=== PATIENT | male | born 1960 | race Caucasian/White ===

== ENCOUNTER 2017-12-07 17:37 | Inpatient (IN) | payer OTHER ==
[~2017-12-07] VITALS: Ht 180.3 cm; Wt 79.5 kg
[~2017-12-07 17:37] MED LIST: ALBUTEROL2.5 MG/3 M INH; ATIVAN0.5 M1 PO; AUGMENTIN 875875 MG PO; CHLORDIAZEPOXID25 M3 PO; FOLIC ACID 1 MG PO; FOLIC ACID1 M1 PO; IPRATROPIU0.2 MG/1 M INH; LIBRIUM25 MG PO; MAGNESIUM OXID400 M1 PO; ONE DAILY MULT1 EAC2 PO; VITAMIN B-1100 MG PO; VITAMIN B-121000 MC3 PO; VITAMIN B1100 MG PO; VITAMIN B121000 MCG PO
--- NOTE | 2017-12-07 18:09 | ED GENERAL ADULT ---
History of Present Illness General Chief Complaint: Altered Mental Status Stated Complaint: BECAME UNRESPONSIVE X 2 Source: patient, family, old records Exam Limitations: no limitations Vital Signs & Intake/Output Vital Signs & Intake/Output Vital Signs Date Time Temp Pulse Resp B/P B/P Pulse O2 O2 Flow FiO2 Mean Ox Delivery Rate 12/078 100 Nasal 2.0L Cannula 12/07 2300 98.7 116 16 112/80 12/07 2300 98.7 116 16 112/80 100 Nasal 2.0L Cannula 12/07 2228 98.9 116 18 120/70 97 Nasal 2.0L Cannula 12/07 2136 97 12/07 2120 135 18 115/66 98 Room Air 12/07 2014 98.5 123 18 102/59 96 Room Air 12/08 1999 97 Room Air 12/07 192 101.7 12/07 1742 101.7 146 20 123/74 98 Room Air Allergies Coded Allergies: NO KNOWN ALLERGIES (12/27/13) Reconcile Medications Albuterol Sulfate 2.5 MG/3 ML VIAL.NEB 1 PUFF INH BID PRN COPD Chlordiazepoxide HCl 25 MG CAPSULE 4 CAP PO DAILY ALCOHOL WITHDRAWAL ( Reported) Cyanocobalamin (Vitamin B-12) 1,000 MCG TABLET 1 TAB PO DAILY VITAMIN SUPPORT (Reported) Folic Acid 1 MG TABLET 1 TAB PO DAILY VITAMIN SUPPORT (Reported) Ipratropium [place] 0.2 MG/1 ML SOLUTION 1 PUFF INH BID PRN COPD Multivitamin (One Daily Multivitamin) 1 EACH TABLET 1 TAB PO DAILY supplement Thiamine HCl (Vitamin B-1) 100 MG TABLET 1 TAB PO DAILY VITAMIN SUPPORT ( Reported) Triage Note: RECEIVED 57 YO MALE BIBA FROM HOME WITH REPORT OF BRIEF PERIODS OF UNRESPONSIVENESS X 2 TODAY. ACCORDING TO PARAMEDICS, CALLED 911 AFTER PT HAD A BRIEF PERIOD OF BEING UNRESPONSIVE LASTING A FEW SECONDS. PT WARM TO TOUCH, TACYCARDIC, 101.7 TEMP ORALLY, 146 HR. PT WARM TO TOUCH, RHONCHI AUSCULTATED BILATERALLY. PT HAS MANY BRUISES ALL OVER BODY; PT REPORTS IT IS FROM FALLING A FEW DAYS AGO. ACCORDING TO TAR DISTRIBUTOR OPERATOR, PT HAD A UNRESPONSIVE EPISODE LASTING A FEW SECONDS ON WAY TO THE ED. Triage Nurses Notes Reviewed? yes Onset: Abrupt Duration: day(s): (1-2), changing over time, continues in ED, getting worse Timing: remote history Injury Environment: home Severity: moderate, severe No Modifying Factors: none HPI: 57-year-old male history of alcohol dependence, DTs, COPD presents for evaluation of altered mental status and periods of unresponsiveness. Family reports that patient has become gradually more weak and lethargic today. He was unable to walk. He is a heavy drinker he drinks beer daily. They're unsure exactly how much she drinks. 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 Patient has been so weak he is been unable to get off of his couch to get beer. He had several episodes of brief unresponsiveness today. There is no rhythmic movements of the extremities. Patient is also had multiple falls recently due to weakness. He developed a fever today. He has a cough but denies shortness of breath or cough is productive. He denies nausea vomiting or abdominal pain. He does have watery diarrhea with dark stool. No bright red blood no blood thinners. No recent antibiotics sick contacts or recent travel. (Jerald Stephens) Past History Travel History Traveled to [place] past 21 day No Medical History Any Pertinent Medical History? see below for history Neurological: delerium tremens, seizure EENT: NONE Cardiovascular: NONE Respiratory: COPD Gastrointestinal: alcoholic hepatitis Hepatic: alcoholic hepatitis, r/o cirrhosis Renal: NONE Musculoskeletal: degen joint disease, falls, C-SPINE FRACTUTRE Psychiatric: alcohol dependence, anxiety Endocrine: NONE Blood Disorders: coagulopathy, thrombocytopenia Cancer(s): NONE ON AIR TALENT/Reproductive: NONE History of MRSA: No History of VRE: No History of CDIFF: No Surgical History Surgical History: non-contributory Psychosocial History Who do you live with Spouse Services at Home None What is your primary language Singaporean Tobacco Use: Current Daily Use Daily Tobacco Use Amount/Type: => 5 Cigarettes daily ETOH Use: heavy use Family History Family History, If Any: FATHER Ischemic heart disease (IHD) Hx Contributory? No (Jerald Stephens) Review of Systems Review of Systems Constitutional: Reports: chills, diaphoresis, fever, malaise, weakness. EENTM: Reports: no symptoms. Respiratory: Reports: see HPI, cough, sputum production. Cardiovascular: Reports: no symptoms. GI: Reports: diarrhea. Genitourinary: Reports: no symptoms. Musculoskeletal: Reports: no symptoms. Skin: Reports: no symptoms. Neurological/Psychological: Reports: no symptoms. Hematologic/Endocrine: Reports: no symptoms. Immunologic/Allergic: Reports: no symptoms. All Other Systems: Reviewed and Negative (Jerald Stephens) Physical Exam Physical Exam General Appearance: no apparent distress, alert, awake, lethargic, thin Head: atraumatic, normal appearance Eyes: Bilateral: normal appearance, PERRL, EOMI. Ears, Nose, Throat: normal pharynx, normal ENT inspection, hearing grossly normal Neck: normal inspection, supple, full range of motion Respiratory: chest non-tender, no respiratory distress, rhonchi, wheezing Cardiovascular: normal peripheral pulses, tachycardia Peripheral Pulses: 2+ radial (R), 2+ radial (L) Gastrointestinal: normal bowel sounds, soft, non-tender, no organomegaly Rectal: normal exam, normal rectal tone, heme positive stool, dark brown stool heme-positive no gross blood Back: normal inspection, normal range of motion, no vertebral tenderness Extremities: normal inspection, normal range of motion, no edema Neurologic/Psych: no motor/sensory deficits, awake, alert, oriented x 3 Skin: intact, normal color, warm/dry, MULTIPLE superficial abrasions and bruising to the trunk and bilateral upper and lower extremities Lymphatic: no anterior cervical christy Core Measures ACS in differential dx? No CVA/TIA Diagnosis: No Sepsis Present: No Sepsis Focused Exam Completed? Yes (Jerald Stephens) Progress Differential Diagnoses I considered the following diagnoses in my evaluation of the patient: [Sepsis, alcohol intoxication, alcohol withdrawal, seizure disorder, pneumonia, aspiration pneumonia, acute coronary syndrome, UTI, electrolyte abnormality, hepatic encephalopathy, trauma] Plan of Care: Orders Procedure Date/time Status Regular Diet 12/08 B Active ECHOCARDIOGRAM 12/08 0900 Active ICU LAB BUNDLE 12/08 0500 Active HEPATIC FUNCTION PANEL 12/08 0500 Active CBC WITHOUT DIFFERENTIAL 12/08 0500 Active LACTIC ACID 12/08 0200 Active VRE ACTIVE SURVIELLANCE 12/07 233 Active ACTIVE SURVEILLANCE NARES 12/07 233 Active LACTIC ACID 12/07 233 Active Wound Care/Dressing 12/07 2314 Complete Weight 12/07 2314 Active VTE Mechanical Prophylaxis 12/07 2314 Active Vital Signs 12/07 2314 Active Turn and Reposition 12/07 2314 Active Drains/Tubes 12/07 2314 Complete Teach/Educate 12/07 2314 Active Skin Integrity Protocol 12/07 2314 Active Skin/Pressure Ulcer Assess (Sk 12/07 2314 Active Precautions 12/07 2314 Active Pain Treatment and Response 12/07 2314 Active Nutritional Intake, Monitor 12/07 2314 Active Isolation 12/07 2314 Active CIWA 12/07 2314 Active Patient Care Conference 12/07 2314 Active Activity/Ambulation 12/07 2314 Active LOWER RESPIRATORY CULTURE 12/07 2237 Active Pathway - chart 12/07 2128 Active House Staff 12/07 2128 Active Code Status 12/07 2128 Active LACTIC ACID 12/07 2048 Complete Add-on Test (ER Only) 12/08 2039 Active CULTURE,URINE 12/08 2019 Active STREP PNEUMO URINARY ANTIGEN 12/08 2019 Active LEGIONELLA URINARY ANTIGEN 12/08 2019 Active Patient Data 12/07 1956 Active Admit to inpatient 12/07 195 Active Add-on Test (ER Only) 12/07 194 Active Intake & Output 12/07 1846 Active Add-on Test (ER Only) 12/07 1826 Active Add-on Test (ER Only) 12/07 180 Active Add-on Test (ER Only) 12/07 180 Active CIWA 12/07 1754 Active TSH REFLEX 12/07 1750 Active PARTIAL THROMBOPLASTIN TIME 12/07 1750 Complete PROTHROMBIN TIME 12/07 1750 Complete PRE-ALBUMIN 12/07 1750 Active SERUM OSMOLALITY 12/07 1750 Active MAGNESIUM 12/07 1750 Active LIPASE 12/07 1750 Active CREATINE PHOSPHOKINASE 12/07 1750 Active VITAMIN B12 12/07 1750 Active ACETONE 12/07 1750 Active BLOOD CULTURE 12/07 1749 Active URINE DRUG SCREEN FOR ER ONLY 12/07 1749 Complete URINALYSIS 12/07 1749 Complete TROPONIN LEVEL 12/07 1749 Active LACTIC ACID 12/07 1749 Active ETHANOL 12/07 1749 Active COMPREHENSIVE METABOLIC PANEL 12/07 1749 Active CBC WITHOUT DIFFERENTIAL 12/07 174 Complete EKG 12/07 1742 Active Lab Add-on Test 12/07 UNK Active VTE Mechanical Prophylaxis 12/07 UNK Active Hemoccult 12/07 UNK Active SOCIAL WORK CONSULT 12/07 UNK Active NUTRITIONAL CONSULT 12/07 UNK Active Current Medications Sig/Christal Start time Last Medication Dose Stop Time Status Admin Folic Acid 1 MG DAILY 12/08 899 AC (Folic Acid) Multivitamins 1 TAB DAILY 12/08 899 AC (Theragran Vitamins) Pantoprazole Sodium 40 MG DAILY 12/08 899 AC (Protonix) Thiamine HCl 100 MG DAILY 12/08 899 AC (Vitamin B1) Metronidazole 500 MG IQ8 12/08 0000 AC (Flagyl) N/A 1 UNIT (No Carrier) Lorazepam 2 MG Q6 12/079 AC (Ativan) Lorazepam 0 Q1P PRN 12/07 2315 UNVr (Ativan) Ceftriaxone Sodium 1,000 MG 2200 12/07 2199 AC 12/07 (Rocephin) 2235 Laboratory Tests 12/07/172031: Lactic Acid 7.6 H 12/07/17 2020: Urine Opiates Screen < 100, Methadone Screen < 40, Barbiturate Screen < 60, Ur Phencyclidine Scrn < 6.00, Amphetamines Screen < 100, U Benzodiazepines Scrn < 85, Urine Cocaine Screen < 50, Urine Cannabis Screen < 5.00, Urine Color YEL, Urine Clarity HAZY H, Urine pH 6.5, Ur Specific [place] 1.010, Urine Protein 30 H, Urine Ketones NEG, Urine Nitrite POS H, Urine Bilirubin NEG, Urine Urobilinogen 0.2, Ur Leukocyte Esterase TRACE H, Ur Microscopic SEDIMENT EXAMINED, Urine RBC FEW H, Urine WBC 1-3 H, Ur Epithelial Cells RARE, Urine Bacteria MOD H, Urine Mucus RARE, Urine Hemoglobin SMALL H, Urine Glucose NEG 12/07/17 1750: Anion Gap 21 H, Estimated GFR > 60, BUN/Creatinine Ratio 2.5 L, Glucose 80, Serum Osmolality 302 H, Lactic Acid 11.3 H, Calcium 7.1 L, Magnesium 1.2 L, Total Bilirubin 1.2, AST 141 H, ALT 37, Alkaline Phosphatase 134 H, Creatine Kinase 309 H, Troponin I 0.02, Total Protein 6.4, Albumin 2.3 L, Globulin 4.1, Albumin/Globulin Ratio 0.6 L, Prealbumin 4.9 L, Lipase 254, Vitamin B12 > 1000 H, TSH &T3 &Free T4 Intrp Pending, PT 15.2 H, INR 1.39 H, APTT 33, CBC w Diff NO MAN DIFF REQ, RBC 2.56 L, MCV 102.5 H, MCH 35.4 H, MCHC 34.5, RDW 14.2, MPV 9.2, Gran % 90.3 H, Lymphocytes % 6.2 L, Monocytes % 3.4, Eosinophils % 0, Basophils % 0.1, Absolute Granulocytes 3.7, Absolute Lymphocytes 0.3 L, Absolute Monocytes 0.1, Absolute Eosinophils 0, Absolute Basophils 0, Serum Alcohol 101.0, Acetone Level NEGATIVE Microbiology 12/07 2309 UPPER RESP: Surveillance Culture - RECD 12/07 2309 GI: Surveillance Culture - RECD 12/07 2237 LOWER RESP: Respiratory Culture - ORD 12/07 2237 LOWER RESP: Gram Stain - ORD 12/08 2019 URINE ROUT: Legionella Antigen - RES 12/08 2019 URINE ROUT: Streptococcus pneumoniae Antigen (M - RES 12/08 2019 URINE ROUT: Urine Culture - RES 12/07 182 BLOOD: Blood Culture - RECD 12/07 1749 BLOOD: Blood Culture - RECD Patient arrives for evaluation of altered mental status and lethargy. He is tachycardia to the 140s and has a temp of 101. Fluids IV Tylenol ordered. Blood cultures urinalysis chest x-ray EKG ordered. Patient reports a history of multiple falls. He is a poor historian. CT scans of the head cervical spine chest 7 and pelvis ordered to rule out trauma. Patient has a history of alcohol withdrawal seizures. He reports he did not drink anything today. He had periods of unresponsiveness he'll be medicated with 2 mg of IV Ativan for prophylaxis of withdrawal seizures. Blood work shows a lactic acid of 11 magnesium of 1.2 and potassium of 3.3. Electrolytes will be replaced. CT scan shows a colitis and gallbladder wall thickening ultrasound of the gallbladder ordered. Rectal exam is positive for occult blood and no gross blood no melena. GI called. Patient will require admission to the hospital for lactic acidosis. Dr. Tejada will talk to the hospitalist to admit to the ICU. Additional fluids were ordered. Ultrasound showed evidence of acalculous cholecystitis. Admitting team is aware they'll consult surgery Diagnostic Imaging: Viewed by Me: Radiology Read, Ultrasound. Discussed w/RAD: Radiology Read, Ultrasound. Radiology Impression: PATIENT: PORTIA GONZALEZ PRESENT AGE: 57 PATIENT ACCOUNT NO: [id number] : 58 LOCATION: [facility] ORDERING PHYSICIAN: Jerald TALAVERA SERVICE DATE: 12/07/17 EXAM TYPE: CAT - CT CERV SPINE WO IV CONTRAST; CT HEAD WO IV CONTRAST EXAMINATION: CT OF THE HEAD AND CERVICAL SPINE WITHOUT CONTRAST CLINICAL INFORMATION: AMS UNRESPONSIVE. COMPARISON: 01/16/2016. TECHNIQUE: Contiguous axial imaging was performed from the skull base to vertex. Soft tissue and bony algorithms were evaluated. Coronal reformatted images were obtained on the technologist's workstation. Following this, multiple serial thin slice helical CT scan images through the cervical spine were obtained. Soft tissue and bony algorithms were evaluated. Coronal and sagittal reformatted images were obtained on the technologist workstation. DLP: 932 mGy cm FINDINGS: Head CT: The ventricles are normal in size and symmetry. There is no evidence of acute intracranial hemorrhage or territorial infarction. No abnormal mass-effect or midline shift is seen. Brady to white matter differentiation is well preserved. No extra-axial fluid collections are identified. There is no abnormal attenuation within the brain parenchyma. The osseous structures and soft tissues are normal. The mastoid air cells and visualized portions of the paranasal sinuses are well-aerated. Cervical spine CT: No prevertebral soft tissue swelling is appreciated. The bones are in normal anatomic alignment with no acute fracture or spondylolisthesis. Multilevel degenerative changes are seen with osteophyte formation more so from C3 to C7. Loss of disc height more so at C5/C6 and C6/C7. Degenerative changes is slightly progressed from the 2016 study. Vertebral body heights and disc heights are otherwise preserved. Posterior elements also demonstrate multiple sclerotic degenerative changes. Visualized airway and lung apices are unremarkable. Visualized thyroid gland unremarkable. IMPRESSION: Head CT: No acute intracranial pathology. C-spine: No acute bony abnormality in the cervical spine. Multilevel degenerative changes seen. DICTATED BY: Pepe Chang MD DATE/TIME DICTATED:12/07/171901 POINTER MACHINE OPERATOR:MONIKA DATE/ TIME TRANSCRIBED:12/07/171901 CONFIDENTIAL, DO NOT COPY WITHOUT APPROPRIATE AUTHORIZATION. <Electronically signed in Other Vendor System> SIGNED BY: Pepe Chang MD 12/07/171908, PATIENT: PORTIA GONZALEZ PRESENT AGE: 57 PATIENT ACCOUNT NO: [id number] : 58 LOCATION: [facility] ORDERING PHYSICIAN: Jerald TALAVERA SERVICE DATE: 12/07/17 EXAM TYPE: US - US-LIMITED ABDOMEN EXAMINATION: US ABDOMEN LIMITED CLINICAL INFORMATION: Cholecystitis. AMS. Right upper quadrant pain.. COMPARISON: Ultrasound complete abdomen 01/16/2016. TECHNIQUE: Real-time imaging of the right upper quadrant abdominal viscera. Patient is unconscious and unable to follow breathing instructions. FINDINGS: PANCREAS: The pancreas is completely obscured by overlying gas. LIVER: The liver demonstrates enlarged size, contour and increased echogenicity. No focal lesion or intrahepatic biliary duct dilatation. GALLBLADDER: The gallbladder contains echogenic bile with 0.8 cm wall thickness. There is echogenic fluid within the gallbladder wall and anechoic fluid around the gallbladder wall consistent with cholecystitis. There is no echogenic stone visualized. COMMON BILE DUCT: Normal in caliber measuring 0.5 cm in diameter. RIGHT KIDNEY: Normal. No hydronephrosis. No renal calculi or focal parenchymal lesions. The kidney measures 11.6 cm in maximum dimension. FREE FLUID: None. IMPRESSION: Findings most suggestive of acalculous cholecystitis. Thickened gallbladder wall and anechoic pericholecystic fluid collection. The CBD is normal size measuring 0.5 cm. The liver is enlarged with increased echogenicity likely hepatic steatosis. DICTATED BY: Alma DONIS,James DATE/TIME DICTATED:2042 POINTER MACHINE OPERATOR:[email or web address].[email or web address] DATE/TIME TRANSCRIBED:12/07/172042 CONFIDENTIAL, DO NOT COPY WITHOUT APPROPRIATE AUTHORIZATION. <Electronically signed in Other Vendor System> CXR Impression: PATIENT: PORTIA GONZALEZ PRESENT AGE: 57 PATIENT ACCOUNT NO: [id number] : 58 LOCATION: [facility] ORDERING PHYSICIAN: Jerald TALAVERA SERVICE DATE: 12/07/17 EXAM TYPE: RAD - XRY- PORTABLE CHEST XRAY EXAMINATION: XR PORTABLE CHEST CLINICAL INFORMATION: AMS, fever. COMPARISON: Chest portable 01/16/2016. TECHNIQUE: Portable frontal view of the chest was obtained. FINDINGS: Lungs are well-inflated and clear of acute process. The heart size and pulmonary vascularity is normal. No gross bony abnormality seen. IMPRESSION: Unremarkable chest exam. DICTATED BY: Alma DONIS, Jaems DATE/TIME DICTATED:12/07/171856 POINTER MACHINE OPERATOR:RAD.MONTENEGRO DATE/TIME TRANSCRIBED:12/07/171856 CONFIDENTIAL, DO NOT COPY WITHOUT APPROPRIATE AUTHORIZATION. Initial ED EKG: SINUS TACH RATE 143, LOW VOLATE FRONTAL LEADS, DIFFUSE ABNORMAL T WAVES Rhythm Strip: sinus tachycardia (Jerald Stephens) ED Sepsis Exam Date of Focused Sepsis Exam: 12/07/17 Time of Focused Sepsis Exam: 2147 Sepsis Cardiac Exam: Tachycardia Sepsis Resp Exam: Ronchi Sepsis Cap Refill Exam: <2 Sec Sepsis Peripheral Pulse Exam: Normal Sepsis Peripheral Pulse Location: Radial Sepsis Skin Color Exam: Normal for Ethnicity Skin Temp/Moisture Exam: Hot/Dry (Jerald Stephens) Departure Departure Disposition: STILL A PATIENT Condition: Stable Clinical Impression Primary Impression: Acidosis Secondary Impressions: Acalculous cholecystitis, Colitis Departure Forms: Customer Survey General Discharge Information Admission Note Spoke With: Payton Garcia MD Documentation of Exam: Documentation of any treatments & extenuating circumstances including Concerns Regarding Discharge (functional status, medication knowledge or non-compliance, living conditions, etc.) that warrant an admission rather than observation: [ SERIAL LABS, FLUIDS, REPLENISH ELECTROLYES, critical care, follow-up cultures, GI consult, CIWA, IV Ativan medication adjustment physical therapy] (Jerald Stephens) PA/STOCK DRIVER Co-Sign Statement Statement: ED Attending supervision documentation- [X] I saw and evaluated the patient. I have also reviewed all the pertinent lab results and diagnostic results. I agree with the findings and the plan of care as documented in the PA's/STOCK DRIVER's documentation. [X] I have reviewed the ED Record and agree with the PA's/STOCK DRIVER's documentation. [] Additions or exceptions (if any) to the PAs/STOCK DRIVER's note and plan are summarized below: [Patient is febrile, tachycardic and has lactic acidosis, patient is an alcoholic but has not had access to alcohol however will need evaluation for possible toxic alcohols. A level has been sent KORI, we'll need to follow-up on an osmolar gap was acetone level. If his toxic alcohol level was positive he may need for FOMEPAZOL and possibly even hemodialysis.] (Mallory DONIS,Fred Sevilla) Critical Care Note Critical Care Note Critical Care Time: 75-104 min (Jerald Stephens)
[2017-12-07 18:22] LABS: ABSOLUTE BASOPHIL COUNT 0 /CUMM (0.0-0.2); ABSOLUTE EOSINOPHIL COUNT 0 /CUMM (0.0-0.7); ABSOLUTE GRANULOCYTE CT 3.7 /CUMM (1.4-6.5); ABSOLUTE LYMPH COUNT 0.3 /CUMM (1.2-3.4); ABSOLUTE MONOCYTE COUNT 0.1 /CUMM (0.10-0.60); BASOPHIL % 0.1 % (0.0-2.0); EOSINOPHIL % 0 % (0-5); HEMATOCRIT 26.2 % (42-52); MEAN CORPUSCULAR HGB 35.4 PG (27.0-31.0); MEAN CORPUSCULAR HGB CONC 34.5 G/DL (33.0-37.0); MEAN CORPUSCULAR VOLUME 102.5 FL (80.0-94.0); MEAN PLATELET VOLUME 9.2 FL (7.4-10.4); RBC DISTRIBUTION WIDTH 14.2 % (11.5-14.5); RED BLOOD CELL CT 2.56 /CUMM (4.70-6.10); WHITE BLOOD CELL COUNT 4.1 /CUMM (4.8-10.8)
[2017-12-07 18:33] LABS: GRANULOCYTE % 90.3 % (42.2-75.2); PLATELET COUNT 129 /CUMM (130-400)
--- NOTE | 2017-12-07 19:01 | RADIOLOGY REPORT ---
EXAMINATION: XR PORTABLE CHEST CLINICAL INFORMATION: AMS, fever. COMPARISON: Chest portable 01/16/2016. TECHNIQUE: Portable frontal view of the chest was obtained. FINDINGS: Lungs are well-inflated and clear of acute process. The heart size and pulmonary vascularity is normal. No gross bony abnormality seen. IMPRESSION: Unremarkable chest exam.
--- NOTE | 2017-12-07 19:09 | CT SCAN REPORT ---
EXAMINATION: CT OF THE HEAD AND CERVICAL SPINE WITHOUT CONTRAST CLINICAL INFORMATION: AMS UNRESPONSIVE. COMPARISON: 01/16/2016. TECHNIQUE: Contiguous axial imaging was performed from the skull base to vertex. Soft tissue and bony algorithms were evaluated. Coronal reformatted images were obtained on the technologist's workstation. Following this, multiple serial thin slice helical CT scan images through the cervical spine were obtained. Soft tissue and bony algorithms were evaluated. Coronal and sagittal reformatted images were obtained on the technologist workstation. DLP: 932 mGy cm FINDINGS: Head CT: The ventricles are normal in size and symmetry. There is no evidence of acute intracranial hemorrhage or territorial infarction. No abnormal mass-effect or midline shift is seen. Brady to white matter differentiation is well preserved. No extra-axial fluid collections are identified. There is no abnormal attenuation within the brain parenchyma. The osseous structures and soft tissues are normal. The mastoid air cells and visualized portions of the paranasal sinuses are well-aerated. Cervical spine CT: No prevertebral soft tissue swelling is appreciated. The bones are in normal anatomic alignment with no acute fracture or spondylolisthesis. Multilevel degenerative changes are seen with osteophyte formation more so from C3 to C7. Loss of disc height more so at C5/C6 and C6/C7. Degenerative changes is slightly progressed from the 2016 study. Vertebral body heights and disc heights are otherwise preserved. Posterior elements also demonstrate multiple sclerotic degenerative changes. Visualized airway and lung apices are unremarkable. Visualized thyroid gland unremarkable. IMPRESSION: Head CT: No acute intracranial pathology. C-spine: No acute bony abnormality in the cervical spine. Multilevel degenerative changes seen.
--- NOTE | 2017-12-07 19:24 | CT SCAN REPORT ---
EXAMINATION: CT CHEST WITHOUT CONTRAST CT ABDOMEN AND PELVIS WITHOUT CONTRAST CLINICAL INFORMATION: Presumptive Dx: PNA TRAUMA Symptoms: MULTIPLE FALLS COUGH AMS . COMPARISON: CT chest dated 03/07/2015.. TECHNIQUE: Multidetector volumetric imaging was performed from the thoracic inlet through the pubic symphysis . Sagittal and coronal images were reformatted. DOSE: 445 mGy-cm FINDINGS: -CHEST- LUNG: The lungs are clear without focal opacity or nodule. MEDIASTINUM: The mediastinum in normal. The central vascular structures are unremarkable. No hilar or mediastinal lymphadenopathy. PERICARDIUM/PLEURA: No significant effusion. No pleural mass or thickening. CHEST WALL/AXILLA: There are old healed fractures of the right seventh and eighth ribs laterally. No acute fractures. No axillary adenopathy. -ABDOMEN/PELVIS- LIVER, GALLBLADDER, BILIARY TREE: Diffuse hypoattenuation of the hepatic parenchyma is consistent with steatosis. There is focal fatty sparing around the gallbladder fossa. No focal hepatic lesions are identified. Liver is normal in size and contour. No ductal dilatation. Gallbladder is distended with mild wall thickening. No pericholecystic inflammatory changes are identified. No radiodense gallstones. PANCREAS: Unremarkable. SPLEEN: Unremarkable. ADRENAL GLANDS: Unremarkable. KIDNEYS AND URETERS: The kidneys are normal in size, shape, and attenuation. No hydronephrosis, hydroureter, or calculi seen. No perinephric stranding. BLADDER: Decompressed with diffuse wall thickening. GASTROINTESTINAL TRACT: Stomach, small bowel, and colon are normal in caliber. There is a mobilized cecum. Appendix is normal. There is mild wall thickening and stranding pericolonic edema at the ascending colon. Colon is otherwise normal in wall thickness without surrounding inflammatory changes. No intraperitoneal free air or free fluid. ABDOMINAL WALL: No significant hernia is appreciated. Status post right inguinal herniorrhaphy. VASCULATURE: Calcific atherosclerosis in the abdominal aorta and iliac arteries. No aneurysmal dilatation. LYMPH NODES: No lymphadenopathy. . PELVIC VISCERA: The prostate and seminal vesicles are unremarkable. OSSEUS STRUCTURES: Right convex lumbar scoliosis. Chronic superior endplate compression deformity is present in the midthoracic spine at T6. This is unchanged from prior. Small superior endplate compression deformities at the L3 and L4 vertebral bodies and at the L5 vertebral body are favored to be chronic. Acute fractures in the regions of relatively less likely. No other compression fractures are identified. There is mild to moderate multilevel degenerative disc disease throughout the lumbar spine and, to a lesser extent, in the thoracic spine. Arthropathy is present in the lower lumbar spine and combines with disc bulge to produce at least mild central canal narrowing at L4. IMPRESSION: 1. No acute injuries are identified in the chest, abdomen, and pelvis. 2. Clear lungs. No pneumonia. 3. Mild wall thickening and surrounding pericolonic stranding at the ascending colon, concerning for mild colitis. Appendix is normal. No evidence of perforation. 4. Gallbladder wall thickening. This may be reactive to the adjacent inflammation at the colon or due to underlying hepatocellular disease. Acute cholecystitis is less likely. No cholelithiasis identified. 5. Hepatic steatosis. 6. Multilevel degenerative disc disease in the thoracolumbar spine. Superior endplate compression fractures at the L3, L4, and L5 vertebral bodies are favored to be chronic, though prior comparisons are not available and acute fractures at these levels cannot be completely excluded.
--- NOTE | 2017-12-07 20:18 | History & Physical ---
Jl Pinto MD 12/07/17 2017: General Information and HPI MD Statement: I have seen and personally examined PORTIA GONZALEZ and documented this H&P. The patient is a 57 year old M who presented with a patient stated chief complaint of [weakness, unresponsiveness]. Source of Information: family Exam Limitations: no limitations History of Present Illness: 57 yo M with PMH of COPD, heavy alcohol use with history of alcohol related withdrawal seizure, delirium tremens requiring ICU admission in 2013, cervical spine injury with degenerative changes was brought to the ED by family members for evaluation of fever and brief episodes of unresponsiveness. History has been obtained from the present at bedside as the patient was somnolent at the time of interview. The states that she returned home today around 3pm and found her on the couch, with shaking chills and feeling cold. She assisted to take him to the bathroom but he was unable to make it and soiled himself. The reports that he had dark stools. After she helped him back to the couch, he tried to get back up to use the bathroom but was unable to do so due to weakness. The patient has a heavy alcohol intake. The is unable to tell exactly but states around 20 beers a day along with 3 packs of cigarettes. While the patient told the EMS that he did not drink alcohol today, the feels she did hear a bottle opened at around 5.30am this morning. She feels the patient is either drinking a beer or smoking a cigarette. He lives a sedentary lifestyle since losing his job two years ago. The patient was normally independent at baseline but lately has required the use of a walker recently due to increasing weakness. He has had 5 falls this past week. He has a poor oral intake other than for alcohol. He has a history of degenerative changes in his cervical spine for which he takes naproxen. The is unsure how much he has been taking recently. The patient has had no hospital admissions for alcohol detox or any other illnesses since his last admission two years ago in [place]. The states that he was enrolled in an outpatient program for alcohol after his last admisison but he resumed drinking soon after he was discharged. Allergies/Medications Allergies: Coded Allergies: NO KNOWN ALLERGIES (12/27/13) Home Med list Naproxen 250 MG TABLET 1 TAB PO BID PRN Pain (Reported) Past History Travel History Traveled to [place] past 21 day No Medical History EENT: NONE Cardiovascular: NONE Respiratory: COPD Gastrointestinal: alcoholic hepatitis Renal: NONE Musculoskeletal: degen joint disease, falls, C-SPINE FRACTUTRE Psychiatric: alcohol dependence Endocrine: NONE Blood Disorders: thrombocytopenia Cancer(s): NONE RETINAL SURGEON/Reproductive: NONE History of MRSA: No History of VRE: No History of CDIFF: No Surgical History Surgical History: non-contributory Past Family/Social History Family History Relations & Conditions if any FATHER Ischemic heart disease (IHD) Psychosocial History Who Do You Live With? spouse Services at Home: None Primary Language: Lao ETOH Use: heavy use Living Will? no Power of Glass Frame Fitter/HCP? no Functional Ability ADLs Independent: dressing, eating, toileting, bathing. Ambulation: independent IADLs Independent: shopping, housework, finances, food prep, telephone, transportation , medication admin. Review of Systems Review of Systems Constitutional: Reports: chills, fever, weakness. EENTM: Reports: no symptoms. Cardiovascular: Denies: chest pain, palpitations. Respiratory: Reports: cough. GI: Reports: melena. Denies: abdominal pain. Genitourinary: Reports: no symptoms. Musculoskeletal: Reports: joint pain. Skin: Reports: no symptoms. Neurological/Psychological: Reports: headache. Hematologic/Endocrine: Reports: no symptoms. Exam & Diagnostic Data Last 24 Hrs of Vital Signs/I&O Vital Signs Date Time Temp Pulse Resp B/P B/P Pulse O2 O2 Flow FiO2 Mean Ox Delivery Rate 12/08 2135 97 12/070 135 18 115/66 98 Room Air 12/07 2014 98.5 123 18 102/59 96 Room Air 12/08 1999 97 Room Air 12/07 1925 101.7 12/07 1742 101.7 146 20 123/74 98 Room Air Physical Exam General Appearance Oriented X3, Cooperative, Mild Distress, awake Skin No Rashes, No Breakdown, dry skin with lesions on bilateral lower extremities Skin Temp/Moisture Exam: Warm/Dry Sepsis Skin Exam (color): Normal for Ethnicity HEENT Atraumatic Cardiovascular Normal S1, Normal S2, tachycardic Lungs diffuse course rhonchi bilaterally Abdomen Soft, No Tenderness, Tse's sign not elicited Neurological Normal Speech Extremities No Edema Last 24 Hrs of Labs/Marek: Laboratory Tests 12/07/172031: Lactic Acid 7.6 H 12/07/171749: Anion Gap 21 H, Estimated GFR > 60, BUN/Creatinine Ratio 2.5 L, Glucose 80, Serum Osmolality 302 H, Lactic Acid 11.3 H, Calcium 7.1 L, Magnesium 1.2 L, Total Bilirubin 1.2, AST 141 H, ALT 37, Alkaline Phosphatase 134 H, Creatine Kinase 309 H, Troponin I 0.02, Total Protein 6.4, Albumin 2.3 L, Globulin 4.1, Albumin/Globulin Ratio 0.6 L, Lipase 254, Vitamin B12 > 1000 H, PT Pending, INR Pending, APTT Pending, CBC w Diff NO MAN DIFF REQ, RBC 2.56 L, MCV 102.5 H , MCH 35.4 H, MCHC 34.5, RDW 14.2, MPV 9.2, Gran % 90.3 H, Lymphocytes % 6.2 L, Monocytes % 3.4, Eosinophils % 0, Basophils % 0.1, Absolute Granulocytes 3.7, Absolute Lymphocytes 0.3 L, Absolute Monocytes 0.1, Absolute Eosinophils 0, Absolute Basophils 0, Serum Alcohol 101.0, Acetone Level NEGATIVE Microbiology 12/08 1819 BLOOD: Blood Culture - RECD 12/07 1749 BLOOD: Blood Culture - RECD Assessment/Plan Assessment: 57 yo M with PMH of COPD, heavy alcohol use with history of alcohol related withdrawal seizure, delirium tremens requiring ICU admission in 2013, cervical spine injury with degenerative changes was brought to the ED by family members for evaluation of fever and brief episodes of unresponsiveness. Assessment: 1. Anion Gap Metabolic Acidosis likely due to Lactic Acidosis 2. Electrolyte Abnormalities - Hypokalemia, Hypomagnesemia, Hypocalcemia 3. Moderate to Severe Malnutrition 4. Alcohol Abuse 5. Dehydration 6. Acalculous Cholecystitis 7. SIRS - Fever of 101.7 and Sinus Tachycardia up to 140s 8. Heme +ve stools 9. Chronic Anemia and Thrombocytopenia 10. History of Alcoholic Hepatitis Plan: * Admit patient to ICU * Aggressive fluid hydration. * Trend Lactic Acid. Currently down to 7.6 from 11.3. He has had elevations in his lactic acid to 7 in the past looking back at his lifetime summary. * Follow blood cultures * Check urine cultures and urinary strep pnemo and legionella antigen. * Start IV Ceftriaxone and Flagyl. * His abdominal U/S shows acalculous cholecystitis though the inflammation may be reactive to the adjacent inflammation at the colon or due to underlying hepatocellular disease. * General surgery consult * Start Ativan 2mg q6 and IV Ativan per CIWA. * Multivitamins, folic acid and thiamine. * His blood alcohol level is 101 so he may not show signs of immediate withdrawal. * Social work consult * Echocardiogram. Last echo in 2015 showed EF of 40-45% with mild global hypokinesia. He could have worsening of his cardiomyopathy. * His prealbumin is low. He has moderate to severe protein malnutrition. Will obtain nutrition consult. * Trend LFTs. * Consider GI consult. He did have heme +ve stools in the ER * Diet: Regular * DVT Prophylaxis: ALPS only * Code: Full Code As Ranked By This Provider Problem List: 1. Acalculous cholecystitis Core Measures/Misc (02/15) Acute Coronary Syndrome ACS Diagnosis: No Congestive Heart Failure Congestive Heart Failure Diagnosis No Cerebrovascular Accident CVA/TIA Diagnosis: No VTE (View Protocol) VTE Risk Factors Age>40 No Mechanical VTE Prophylaxis d/t N/A MechProphylax Ordered No VTE Pharm Prophylaxis d/t Medical Contraindication Sepsis (View protocol) Sepsis Present: No If YES complete Sepsis Event Note If YES complete Sepsis Event Note Payton Garcia MD 12/07/17 7176: Core Measures/Misc (02/15) Sepsis (View protocol) If YES complete Sepsis Event Note If YES complete Sepsis Event Note Attending MD Review Statement Attending Statement Attending MD Statement: examined this patient, discuss w/resident/PA/OIL GAUGER, agreed w/resident/PA/OIL GAUGER, reviewed EMR data (avail) Attending Assessment/Plan: 57M PMH alcohol dependance, alcohol withdrawl seizure/delirium tremens brought in by family for lethargy, weakness, decreased PO intake. Patient drinks several beers per day, family unsure of how many. Patient is lethargic and thus poor historian. He has no complaints when roused. Family is concerned as he is not eating well, only drinks, and has stopped getting out of bed/couch. Found to have lactate 11, febrile 101, pancytopenia, transaminitis, hypocalcemia, hypomagnesemia, and hypokalemia. EKG NSR no acute changes. Imaging shows acalculous cholecystitis. 1. Lactic acidosis 2. Severe dehydration 3. Hypomagnesemia 4. Hypokalemia 5. Hypocalcemia 6. Malnutrition 7. Transaminitis 8. Alcohol withdrawal with delirium 9. Lethargy 10. Acalculous cholecystitis Plan - Admit to ICU - Aggressive IV hydration - Ceftriaxone and Flagyl - Surgery consult - Aggressively replete electrolytes - Trend LFTs, lactate, troponin, electrolytes, renal function, CBC - Ativan PO 2mg q6h - Ativan IV PRN CIWA - DVT PPx - Aggressive IV hydration - Ceftriaxone and Flagyl - Surgery consult - Aggressively replete electrolytes - Trend LFTs, lactate, troponin, electrolytes, renal function, CBC - Ativan PO 2mg q6h - Ativan IV PRN CIWA - DVT PPx
--- NOTE | 2017-12-07 20:53 | ULTRASOUND REPORT ---
EXAMINATION: US ABDOMEN LIMITED CLINICAL INFORMATION: Cholecystitis. AMS. Right upper quadrant pain.. COMPARISON: Ultrasound complete abdomen 01/16/2016. TECHNIQUE: Real-time imaging of the right upper quadrant abdominal viscera. Patient is unconscious and unable to follow breathing instructions. FINDINGS: PANCREAS: The pancreas is completely obscured by overlying gas. LIVER: The liver demonstrates enlarged size, contour and increased echogenicity. No focal lesion or intrahepatic biliary duct dilatation. GALLBLADDER: The gallbladder contains echogenic bile with 0.8 cm wall thickness. There is echogenic fluid within the gallbladder wall and anechoic fluid around the gallbladder wall consistent with cholecystitis. There is no echogenic stone visualized. COMMON BILE DUCT: Normal in caliber measuring 0.5 cm in diameter. RIGHT KIDNEY: Normal. No hydronephrosis. No renal calculi or focal parenchymal lesions. The kidney measures 11.6 cm in maximum dimension. FREE FLUID: None. IMPRESSION: Findings most suggestive of acalculous cholecystitis. Thickened gallbladder wall and anechoic pericholecystic fluid collection. The CBD is normal size measuring 0.5 cm. The liver is enlarged with increased echogenicity likely hepatic steatosis.
[2017-12-07 21:12] LABS: PT 15.2 SEC (9.4-12.5); PTT 33 SEC (25-37)
[2017-12-07 23:00] VITALS: BP 112/80
--- NOTE | 2017-12-07 23:00 | Admission Certification ---
Admission Certification Certification Statement - As attending physician, I certify that at the time of - admission, based on clinical presentation, severity of - symptoms, need for further diagnostic testing and - therapeutic interventions, and risk of adverse outcomes - without in-hospital treatment, in my clinical assessment, - this patient requires an acute hospital stay for a minimum - of two nights or longer. I have also considered psychsocial - factors such as support system, advanced age, financial - issues, cognitive issues, and failed out-patient treatments, - past re-admission history, safety of patient, and lack of - compliance as applicable. Specific rationale supporting this admission is: Severe dehydration with lactate 11 and acalculous cholecystitis
[2017-12-07] MEDS ORDERED: NAPROXEN250 M1 PO (23:53)
[2017-12-08] VITALS (9 sets, daily range): BP systolic 104–133; BP diastolic 60–85
[2017-12-08 02:48] LABS: ABSOLUTE BASOPHIL COUNT 0 /CUMM (0.0-0.2); ABSOLUTE EOSINOPHIL COUNT 0 /CUMM (0.0-0.7); ABSOLUTE GRANULOCYTE CT 19.2 /CUMM (1.4-6.5); ABSOLUTE LYMPH COUNT 0.6 /CUMM (1.2-3.4); ABSOLUTE MONOCYTE COUNT 1.3 /CUMM (0.10-0.60); BASOPHIL % 0 % (0.0-2.0); EOSINOPHIL % 0 % (0-5); GRANULOCYTE % 91.2 % (42.2-75.2); HEMATOCRIT 26.9 % (42-52); MEAN CORPUSCULAR HGB CONC 33.7 G/DL (33.0-37.0); MEAN CORPUSCULAR VOLUME 103.9 FL (80.0-94.0); MEAN PLATELET VOLUME 8.9 FL (7.4-10.4); PLATELET COUNT 114 /CUMM (130-400); RBC DISTRIBUTION WIDTH 14.2 % (11.5-14.5); RED BLOOD CELL CT 2.59 /CUMM (4.70-6.10)
[2017-12-08 03:08] LABS: WHITE BLOOD CELL COUNT 21.1 /CUMM (4.8-10.8)
--- NOTE | 2017-12-08 07:23 | Cons- CRCU ---
Pepe Taylor MD 12/08/17 0722: General Information and HPI Consulting Request Date of Consult: 12/08/17 Requested By: Payton Garcia MD Source of Information: patient, family, old records Exam Limitations: poor historian History of Present Illness: 57 year old male with past medical history of heavy smoking and alcohol use, history of alcohol withdrawal seizure, delirium tremens requiring ICU admission in 2013, and chronic back pain on naproxen, was BIBA for evaluation of fever, chills, diarrhea, and weakness with some reported unresponsiveness. The historywas primarily obtained from the because of the patient's clinical condition. The states that she returned home today around 3pm and found her on the couch, with shaking chills, diaphoretic and had urinated and defecated on himself when she called 911. She reports that he has had dark stools but none overtly blood. He has become progressively weaker and is now using a walker at home that she recently purchased for him. He drinks about 20 beers a day and 3 packs of cigarettes daily. He lives a sedentary lifestyle since losing his job two years ago. The patient was normally independent at baseline but lately has required the use of a walker recently due to increasing weakness. He has had 5 falls this past week with some associated bruising. He has poor oral intake, most of his caloric intake is from beer. He had previously participated in an intensive outpatient program after another hospitalization but has no interest in alcohol cessation at this time. Allergies/Medications Allergies: Coded Allergies: NO KNOWN ALLERGIES (12/27/13) Home Med List: Naproxen 250 MG TABLET 1 TAB PO BID PRN Pain (Reported) Current Medications: Current Medications Sig/Christal Start time Last Medication Dose Route Stop Time Status Admin Acetaminophen 0 .STK-MED ONE 12/07 1858 DC IV Acetaminophen 1,000 MG ONCE ONE 12/07 1800 DC 12/07 N/A 1 UNIT IV 12/07 181 1926 Calcium Carbonate 650 MG BID 12/08 1110 AC PO Ceftriaxone Sodium 0 .STK-MED ONE 12/07 223 DC .ROUTE Ceftriaxone Sodium 1,000 MG 2200 12/07 2200 AC 12/07 IV 2235 Folic Acid 1 MG DAILY 12/08 0900 AC 12/08 PO 0830 Ipratropium [place] 2.5 ML ONCE ONE 12/07 1815 DC 12/07 INH 12/07 1816 2136 Lorazepam 2 MG Q6 12/07 2359 AC 12/08 PO 0551 Lorazepam 0 Q1P PRN 12/07 2345 AC IV Lorazepam 0 Q1P PRN 12/07 2315 DC IV Lorazepam 0 .STK-MED ONE 12/07 1859 DC .ROUTE Lorazepam 2 MG ONE ONE 12/07 1830 DC 12/07 IV 12/07 1831 1926 Magnesium Sulfate 1 GM Q2H 12/08 0530 DC 12/08 Dextrose/Water 100 ML IV 12/08 0929 0635 Magnesium Sulfate 1 GM Q2H 12/07 1845 DC 12/07 Dextrose/Water 100 ML IV 12/07 2244 2124 Metronidazole 500 MG IQ8 12/08 0000 AC 12/08 N/A 1 UNIT IV 0827 Multivitamins 1 TAB DAILY 12/08 0900 AC 12/08 PO 0830 Nicotine 14 MG DAILY 12/08 0900 AC 12/08 TOP 0830 Pantoprazole Sodium 40 MG DAILY 12/08 0900 AC 12/08 IV 0827 Phosphate 250 MG PC AND AT BEDTIME 12/08 1300 AC PO 12/10 0901 Potassium Chloride 40 MEQ ONCE ONE 12/08 1100 DC PO 12/08 1101 Potassium Chloride 10 MEQ Q1H 12/08 0530 DC 12/08 IV 12/08 0631 0635 Potassium Chloride 0 .STK-MED ONE 12/07 185 DC PO Potassium Chloride 40 MEQ ONCE ONE 12/07 1845 DC / PO 12/07 1846 1925 Sodium Chloride 1,000 ML Q7H 12/08 1045 AC IV Sodium Chloride 1,000 ML BOLUS ONE 12/08 1030 AC IV 12/08 1229 Sodium Chloride 1,000 ML Q8H 12/07 2345 DC 12/08 IV 0037 Sodium Chloride 1,000 ML BOLUS ONE 12/07 1900 DC 12/07 IV 12/07 1959 2124 Sodium Chloride 1,000 ML BOLUS ONE 12/07 1845 DC / IV 12/07 1944 1841 Sodium Chloride 1,000 ML BOLUS ONE 12/07 1845 DC 07 IV 12/07 1944 1925 Sodium Chloride 1,000 ML BOLUS ONE 12/07 1800 DC 12/07 IV 12/07 1859 2054 Thiamine HCl 500 MG TID 12/08 1400 AC Sodium Chloride 250 ML IV 12/11 1412 Thiamine HCl 100 MG DAILY 12/08 0900 AC 12/08 PO 0830 Thiamine HCl 100 MG ONCE ONE 12/08 0715 DC 12/08 IM 12/08 0716 0830 Review of Systems Review of Systems Constitutional: Reports: chills, weakness. EENTM: Reports: no symptoms. Cardiovascular: Denies: chest pain, palpitations. Respiratory: Reports: cough, sputum production. Denies: short of breath. GI: Reports: diarrhea. Denies: abdominal pain, nausea, vomiting. Genitourinary: Denies: dysuria, frequency. Musculoskeletal: Reports: back pain, neck pain. Skin: Reports: no symptoms. Neurological/Psychological: Reports: weakness. Hematologic/Endocrine: Reports: no symptoms. Immunologic/Allergic: Reports: no symptoms. Past History Travel History Traveled to [place] past 21 day No Medical History Blood Transfusion Hx: No Neurological: NONE EENT: NONE Cardiovascular: NONE Respiratory: COPD Gastrointestinal: alcoholic hepatitis Hepatic: NONE Renal: NONE Musculoskeletal: degen joint disease, falls, C-SPINE FRACTUTRE Psychiatric: alcohol dependence Endocrine: NONE Blood Disorders: thrombocytopenia Cancer(s): NONE LEVERMAN/Reproductive: NONE Surgical History Surgical History: non-contributory Family History Relations & Conditions If Any: FATHER Ischemic heart disease (IHD) Psychosocial History Where Do You Live? Home Who Do You Live With? spouse Services at Home: None Primary Language: Urdu Smoking Status: Current Everyday Smoker ETOH Use: heavy use Living Will? no Power of Correspondence Representative/HCP? no Functional Ability ADLs Independent: dressing, eating, toileting, bathing. Ambulation: independent, cane, walker IADLs Independent: shopping, housework, finances, food prep, telephone, transportation , medication admin. Exam & Diagnostic Data Last 24 Hrs of Vital Signs/I&O Vital Signs Date Time Temp Pulse Resp B/P B/P Pulse O2 O2 Flow FiO2 Mean Ox Delivery Rate 12/08 0600 99.2 112 20 124/79 12/08 0400 99.2 104 26 116/64 12/08 0400 100 Nasal 2.0L Cannula 12/08 0200 98.7 112 18 132/83 12/08 0000 98.7 106 16 112/80 12/07 2318 100 Nasal 2.0L Cannula 12/07 2300 98.7 116 16 112/80 12/07 2300 98.7 116 16 112/80 100 Nasal 2.0L Cannula 12/07 2228 98.9 116 18 120/70 97 Nasal 2.0L Cannula 12/07 2136 97 12/07 2120 135 18 115/66 98 Room Air 12/07 2014 98.5 123 18 102/59 96 Room Air 12/08 1999 97 Room Air 12/07 1926 101.7 12/07 1742 101.7 146 20 123/74 98 Room Air Intake & Output 12/08 1600 12/08 0800 12/08 0000 Intake Total 1249 5000 Output Total 950 400 Balance 299 4600 Intake, IV 889 5000 Intake, Oral 360 Output, Urine 950 400 Patient 66.395 kg Weight Weight Bed scale Measurement Method Physical Exam General Appearance: no apparent distress, alert, awake, comfortable, obese, poor hygiene, flat affect Respiratory: decreased breath sounds, wheezing Cardiovascular: tachycardia, no murmur Gastrointestinal: normal bowel sounds, soft, non-tender Extremities: normal inspection, normal capillary refill, no edema, right shoulder pain limiting deltoid flexion Last 48 Hrs of Labs/Marek: Laboratory Tests 12/08/17 1139: Lactic Acid Pending 12/08/17 1139: Sodium Pending, Potassium Pending, Chloride Pending, Carbon Dioxide Pending, Anion Gap Pending, BUN Pending, Creatinine Pending, Glucose Pending, Calcium Pending, Phosphorus Pending, Magnesium Pending, Total Bilirubin Pending, AST Pending, ALT Pending, Albumin Pending, Ethylene Glycol Pending, Methyl Alcohol, Quant Pending, Isopropanol Pending 12/08/17 0835: Lactic Acid 4.7 H 12/08/17 0835: Anion Gap 13, Estimated GFR > 60, Glucose 77, Calcium 6.5 L, Phosphorus 3.1, Magnesium 2.0, Total Bilirubin 1.3, AST 130 H, ALT 40, Albumin 2.3 L, Serum Alcohol < 10.0 12/08/17 0530: Lactic Acid 3.6 H 12/08/17 0230: Lactic Acid 4.7 H 12/08/17 0230: Anion Gap 14, Estimated GFR > 60, Glucose 78, Calcium 6.2 L, Phosphorus 3.4, Magnesium 1.5 L, Total Bilirubin 1.1, Direct Bilirubin 0.8 H, AST 112 H, ALT 40, Alkaline Phosphatase 98, Total Protein 5.9 L, Albumin 2.0 L, CBC w Diff MAN DIFF ORDERED, RBC 2.59 L, MCV 103.9 H, MCH 35.0 H, MCHC 33.7, RDW 14.2, MPV 8.9, Gran % 91.2 H, Lymphocytes % 2.7 L, Monocytes % 6.1, Eosinophils % 0, Basophils % 0, Absolute Granulocytes 19.2 H, Segmented Neutrophils 85 H, Band Neutrophils 10 H, Absolute Lymphocytes 0.6 L, Lymphocytes 2 L, Monocytes 3, Absolute Monocytes 1.3 H, Absolute Eosinophils 0, Absolute Basophils 0, Platelet Estimate ADEQUATE, Polychromasia 1+, Poikilocytosis 1+, Anisocytosis 1+ , Macrocytic Cells 1+, Ovalocytes 1+, Fld Total RBCs Counted 100 12/07/170: Lactic Acid 5.9 H 12/07/172031: Lactic Acid 7.6 H 12/07/17 2020: Urine Opiates Screen < 100, Methadone Screen < 40, Barbiturate Screen < 60, Ur Phencyclidine Scrn < 6.00, Amphetamines Screen < 100, U Benzodiazepines Scrn < 85, Urine Cocaine Screen < 50, Urine Cannabis Screen < 5.00, Urine Color YEL, Urine Clarity HAZY H, Urine pH 6.5, Ur Specific [place] 1.010, Urine Protein 30 H, Urine Ketones NEG, Urine Nitrite POS H, Urine Bilirubin NEG, Urine Urobilinogen 0.2, Ur Leukocyte Esterase TRACE H, Ur Microscopic SEDIMENT EXAMINED, Urine RBC FEW H, Urine WBC 1-3 H, Ur Epithelial Cells RARE, Urine Bacteria MOD H, Urine Mucus RARE, Urine Hemoglobin SMALL H, Urine Glucose NEG 12/07/17 1750: Anion Gap 21 H, Estimated GFR > 60, BUN/Creatinine Ratio 2.5 L, Glucose 80, Serum Osmolality 302 H, Lactic Acid 11.3 H, Calcium 7.1 L, Magnesium 1.2 L, Total Bilirubin 1.2, AST 141 H, ALT 37, Alkaline Phosphatase 134 H, Creatine Kinase 309 H, Troponin I 0.02, Total Protein 6.4, Albumin 2.3 L, Globulin 4.1, Albumin/Globulin Ratio 0.6 L, Prealbumin 4.9 L, Lipase 254, Vitamin B12 > 1000 H, TSH &T3 &Free T4 Intrp 2.250, PT 15.2 H, INR 1.39 H, APTT 33, CBC w Diff NO MAN DIFF REQ, RBC 2.56 L, MCV 102.5 H, MCH 35.4 H, MCHC 34.5, RDW 14.2, MPV 9.2, Gran % 90.3 H, Lymphocytes % 6.2 L, Monocytes % 3.4, Eosinophils % 0, Basophils % 0.1, Absolute Granulocytes 3.7, Absolute Lymphocytes 0.3 L, Absolute Monocytes 0.1, Absolute Eosinophils 0, Absolute Basophils 0, Serum Alcohol 101.0, Acetone Level NEGATIVE Diagnostic Data EKG Results sinus tachycardia CXR Results IMPRESSION: 1. No acute injuries are identified in the chest, abdomen, and pelvis. 2. Clear lungs. No pneumonia. 3. Mild wall thickening and surrounding pericolonic stranding at the ascending colon, concerning for mild colitis. Appendix is normal. No evidence of perforation. 4. Gallbladder wall thickening. This may be reactive to the adjacent inflammation at the colon or due to underlying hepatocellular disease. Acute cholecystitis is less likely. No cholelithiasis identified. 5. Hepatic steatosis. 6. Multilevel degenerative disc disease in the thoracolumbar spine. Superior endplate compression fractures at the L3, L4, and L5 vertebral bodies are favored to be chronic, though prior comparisons are not available and acute fractures at these levels cannot be completely excluded. Assessment/Plan CRCU Impression/Plan: 57 year old male with past medical history significant for heavy smoking and alcohol use disorder, history of alcohol withdrawal seizure, delirium tremens requiring ICU admission in 2013, and chronic back pain on disability was brought in for fevers, chills, diarrhea, and weakness. Severe sepsis-suspect abdominal source, gall bladder Febrile to 101.7, sinus tachycardia up to 140s, leukocytosis with bandemia, lactic acidemia Follow up cultures Aggressively hydrated for intravascular volume resuscitation with improved heart rate 110s Lactic acidemia improved but now trending up this morning, giving additional fluid bolus Currently on ceftriaxone and flagyl for presumed abdominal source of infection Acalculous Cholecystitis: Right upper quadrant ultrasound shows acalculous cholecystitis Thickened gallbladder wall and anechoic pericholecystic fluid collection General surgery consulted Recommended HIDA scan Serial abdominal exams May need cholecystostomy or cholecystectomy Anion Gap Metabolic Acidosis: Possible starvation ketosis, ethanol, but most likely due to sepsis and lactic acidemia Follow up methanol, ethylene glycol, isopropyl alcohol, serum osmoles 302 Lactic acidemia, 11.3 on presentation improved to 3.6, now up to 4.7 despite fluids Fluid bolus 1L NS now, continue to trend lactic acidemia Continue antibiotics Electrolyte Abnormalities - Hypokalemia 3.2, Hypomagnesemia 1.2, Hypocalcemia 6.5 Repleted and continuing to monitor Send stool studies and C diff if diarrhea recurrs 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 Elevated INR 1.39 and hypoalbuminemia 2.3 High dose thiamine treatment 500mg iv tid x 3 days Continue multivitamin, thiamine, and folate CIWA monitoring Start ativan 2mg q6 No interest in alcohol cessation or treatment at this time, has done IOP in the past Social work consulted Repeat echocardiogram for possible alcohol dilated cardiomyopathy Previous echo 2016 showed EF of 40-45% with mild global hypokinesia Transaminitis AST>ALT consistent with alcoholic liver disease CT imaging-shows Moderate to Severe Malnutrition Low prealbumin 4.9 Nutrition consulted Chronic Anemia With elevated MCV 104 Vitamin B12 wnl Heme positive stools Consider gastroenterology consultation for EGD, variceal evaluation with h/o EtOH Unlikely to follow up with an outpatient referral Thrombocytopenia: Appears to be chronic from old labs, likely due to EtOH PT evaluation NPO for HIDA scan DVT ppx-heparin sc and ALPS Full Code Consult Acknowledgment - Thank you for your consult request. Ghazal DONIS,[facility] 12/08/17 0842: General Information and HPI Allergies/Medications Current Medications: Current Medications Sig/Christal Start time Last Medication Dose Route Stop Time Status Admin Acetaminophen 0 .STK-MED ONE 12/07 1857 DC IV Acetaminophen 1,000 MG ONCE ONE 12/07 1800 DC 12/07 N/A 1 UNIT IV 12/07 181 1926 Ceftriaxone Sodium 0 .STK-MED ONE 12/07 2232 DC .ROUTE Ceftriaxone Sodium 1,000 MG 2200 12/07 2200 AC 12/07 IV 2235 Folic Acid 1 MG DAILY 12/08 0900 AC 12/08 PO 0830 Ipratropium [place] 2.5 ML ONCE ONE 12/07 181 DC 12/07 INH 12/07 181 2136 Lorazepam 2 MG Q6 12/07 2359 AC 12/08 PO 0551 Lorazepam 0 Q1P PRN 12/07 2345 AC IV Lorazepam 0 Q1P PRN 12/07 2315 DC IV Lorazepam 0 .STK-MED ONE 07/09 1859 DC .ROUTE Lorazepam 2 MG ONE ONE 12/07 1830 DC 07/ IV 12/07 1831 1926 Magnesium Sulfate 1 GM Q2H 12/08 0530 AC 12/08 Dextrose/Water 100 ML IV 12/08 0929 0635 Magnesium Sulfate 1 GM Q2H 12/07 1845 DC 12/07 Dextrose/Water 100 ML IV 12/07 2244 2124 Metronidazole 500 MG IQ8 12/08 0000 AC 12/08 N/A 1 UNIT IV 0827 Multivitamins 1 TAB DAILY 12/08 899 AC 12/08 PO 0830 Nicotine 14 MG DAILY 12/08 899 AC 12/08 TOP 0830 Pantoprazole Sodium 40 MG DAILY 12/08 899 AC 12/08 IV 0827 Potassium Chloride 10 MEQ Q1H 12/08 0530 DC 12/08 IV 12/08 0631 0635 Potassium Chloride 0 .STK-MED ONE 12/07 1858 DC PO Potassium Chloride 40 MEQ ONCE ONE 12/07 1845 DC / PO 12/07 1846 1925 Sodium Chloride 1,000 ML Q8H 12/07 2345 AC 12/08 IV 0037 Sodium Chloride 1,000 ML BOLUS ONE 12/07 1900 DC 07/ IV / 1959 2124 Sodium Chloride 1,000 ML BOLUS ONE 12/07 1845 DC / IV 12/07 1944 1841 Sodium Chloride 1,000 ML BOLUS ONE 12/07 1845 DC 07/ IV / 1944 1925 Sodium Chloride 1,000 ML BOLUS ONE 12/07 1800 DC / IV 12/07 1859 2054 Thiamine HCl 100 MG DAILY 12/08 899 AC 12/08 PO 0830 Thiamine HCl 100 MG ONCE ONE 12/08 0715 DC 12/08 IM 12/08 0716 0830 Assessment/Plan CRCU Other Findings/Comments: I have personally seen and examined the patient and agree with the resident's assessment and plan as detailed above. Briefly, the patient is a 57-year-old male with a past medical history significant for alcohol dependence, delirium tremens, alcohol withdrawal complicated by seizures, and tobacco use disorder noting the patient smokes up to 3 packs per day. The patient was brought in by his family for lethargy, weakness, and decreased oral intake. The patient drinks beer at home, several beers per day 24 hours per day, 7 days a week. He has been drinking for decades. The amount of daily alcohol intake is unclear. The patient has been inactive at home noting that he is disabled. He has stopped getting out of bed or off his couch. He typically will lay down at home and watch television. The patient was evaluated in the emergency department and found to have a lactate of 11, pancytopenia, transaminitis, hypocalcemia, hypomagnesemia, and hypokalemia. He was febrile to 101. His EKG showed normal sinus rhythm without acute changes. Imaging showed a calculus cholecystitis. The patient was admitted to the critical care unit, electrolytes repleted, hydrated, pancultured, and started on ceftriaxone and Flagyl. A surgery consultation was requested. At the present time, the patient reports that he is feeling improved since admission. He is less weak and feels more alert. He complains of some tremulousness and anxiety. He is hemodynamically stable. There were no seizures or other overnight events reported by staff. His lactic acid this morning has decreased down to 3. Impression: 1. Alcohol withdrawal, with history of withdrawal seizures and delirium tremens in the past. 2. Severe lactic acidosis which may be related to starvation ketosis and alcohol consumption. There is no report of ingestion of toxic substances. 3. Electrolyte abnormalities including hypomagnesemia, hypokalemia, and hypocalcemia. 4. Mild transaminitis, likely consistent with alcohol hepatitis. 5. Malnutrition. 6. Tobacco use disorder, noting the patient smokes 3 packs per day. He does have evidence of bronchospasm on examination today, suggesting a COPD exacerbation. 7. Acalculous cholecystitis. 8. Macrocytic anemia without evidence of bleeding. 9. Fever, leukocytosis, related to a calculus cholecystitis. No other obvious source of infection is evident, although the patient does have a positive nitrite in his urine. The patient is being covered on ceftriaxone and Flagyl. Plan: * Continue with aggressive electrolyte repletion. * Repeat chemistries in 8 hours to ensure improvement in the electrolyte levels. Also check a CBC to monitor the white blood cell count and hemoglobin. * Continue with aggressive IV hydration. * Monitor on alcohol withdrawal pathway. Monitor for seizure activity. * Continue multivitamin, thiamine and folate. * Encourage oral intake. Feed first and then check HIDA scan today. * Check a prealbumin. * Nutrition consult. * TRC consult for nebulizer treatments every 4 hours while awake. * Nicotine patch if needed. * Supplemental oxygen for saturations greater than 92%. * Follow-up cultures. * Continue ceftriaxone and Flagyl. * Will consider ID consult if the patient does not defervesce or his white count continues to elevate. * DVT prophylaxis at all times. * Continue to monitor in the critical care unit. Consult Acknowledgment - Thank you for your consult request.
--- NOTE | 2017-12-08 08:12 | Cons- General Surgery ---
General Information and HPI Consulting Request Date of Consult: 12/08/17 Requested By: Alessia Harman MD History of Present Illness: To be completed CC: HPI: 57 yo non-diabetic smoker with alcoholism in whom I repaired a right inguinal hernia 4 years ago, was brought to the emergency room by family after some repeated falls alcohol use and weakness and shaking chills, and admitted to the ICU for weakness fever lactic acidosis on review he was admitted for alcohol -related issues including a lactic acidosis and elevated the function tests December 2015. Workup included CT and ultrasound gallbladder appeared abnormal surgical consult was called. Patient denies any abdominal pain during this episode, no nausea no vomiting no fatty food intolerance, no unusual darkening of his urine like iced tea or diarrhea. He is tolerating diet. The PFSH and ROS were reviewed. He says the hernia repair has not bothered him since. Allergies/Medications Allergies: Coded Allergies: NO KNOWN ALLERGIES (12/27/13) Home Med List: Naproxen 250 MG TABLET 1 TAB PO BID PRN Pain (Reported) Current Medications: I reviewed Current Medications Sig/Christal Start time Last Medication Dose Route Stop Time Status Admin Albuterol Sulfate 3 ML BID 12/09 1028 AC 12/09 INH 1029 Calcium Carbonate 1,250 MG BID 12/09 0900 AC PO Calcium Carbonate 650 MG BID 12/08 1110 DC 12/08 PO 2105 Calcium Gluconate 1 GM ONCE ONE 12/09 0845 DC 12/09 Sodium Chloride 100 ML IV 12/09 0944 1211 Ceftriaxone Sodium 1,000 MG 2200 12/07 2200 AC 12/08 IV 2104 Dextrose/Sodium 1,000 ML Q10H 12/09 1615 AC 12/09 Chloride IV 1618 Folic Acid 1 MG DAILY 12/08 0900 AC 12/09 PO 0829 Heparin Sodium 5,000 UNIT Q8 12/08 1400 AC 12/09 (Porcine) SC 1354 Ipratropium [place] 2.5 ML BID 12/09 1028 AC 12/09 INH 1029 Lorazepam 2 MG Q4 12/09 1000 DC 12/09 PO 0828 Lorazepam 2 MG Q4 12/09 1000 AC 12/09 IV 1354 Lorazepam 2 MG Q6 12/07 2359 DC 12/08 PO 1749 Lorazepam 0 Q1P PRN 12/07 2345 AC 12/09 IV 0528 Magnesium Oxide 400 MG DAILY 12/09 0900 AC 12/09 PO 0830 Magnesium Sulfate 1 GM Q2H 12/09 0815 DC 12/09 Dextrose/Water 100 ML IV 12/09 1214 1211 Magnesium Sulfate 1 GM ONCE ONE 12/08 1630 DC 12/08 Dextrose/Water 100 ML IV 12/08 2029 1749 Metoprolol Tartrate 5 MG ONCE ONE 12/09 0930 DC 12/09 IV 12/09 0931 1022 Metronidazole 500 MG IQ8 12/08 0000 DC 12/09 N/A 1 UNIT IV 12/09 1200 0825 Multivitamins 1 TAB DAILY 12/08 0900 AC 12/09 PO 0829 Nicotine 14 MG DAILY 12/08 0900 AC 12/09 TOP 0829 Omeprazole 40 MG DAILY AC 12/09 07 AC PO Pantoprazole Sodium 40 MG ONCE ONE 12/09 0530 DC 12/09 IV 12/09 0531 0548 Phosphate 250 MG PC AND AT BEDTIME 12/09 0900 CAN PO 12/09 2101 Phosphate 250 MG PC AND AT BEDTIME 12/08 1300 AC 12/09 PO 12/10 0901 0828 Potassium Phosphate 15 mMol ONE ONE 12/09 0815 DC 12/09 Dextrose/Water 250 ML IV 12/09 1219 1037 Sodium Chloride 1,000 ML BOLUS ONE 12/09 0815 DC 12/09 IV 12/09 1014 0825 Sodium Chloride 500 ML BOLUS ONE 12/08 2300 DC 12/08 IV 12/08 2359 2253 Sodium Chloride 1,000 ML BOLUS ONE 12/08 1845 DC 12/08 IV 12/08 2044 1859 Sodium Chloride 1,000 ML Q7H 12/08 1045 DC 12/09 IV 1355 Thiamine HCl 500 MG TID 12/08 1400 AC 12/09 Sodium Chloride 250 ML IV 12/11 1412 1354 Thiamine HCl 100 MG DAILY 12/08 0900 AC 12/09 PO 0829 Vancomycin HCl 1,000 MG Q12 12/09 0900 DC 12/09 Sodium Chloride 250 ML IV 0920 Vancomycin HCl 1,000 MG ONCE ONE 12/08 1745 DC 12/08 Sodium Chloride 250 ML IV 12/08 1844 2006 Past History Medical History Blood Transfusion Hx: No Neurological: NONE EENT: NONE Cardiovascular: NONE Respiratory: COPD Gastrointestinal: alcoholic hepatitis Hepatic: NONE Renal: NONE Musculoskeletal: degen joint disease, falls, C-SPINE FRACTUTRE Psychiatric: alcohol dependence Endocrine: NONE Blood Disorders: thrombocytopenia Cancer(s): NONE CLINIC MD ASSOCIATE/Reproductive: NONE Surgical History Pertinent Surgical History: non-contributory, hernia repair-inguinal Family History Relations & Conditions If Any: FATHER Ischemic heart disease (IHD) Psychosocial History Where Do You Live? Home Who Do You Live With? spouse Services at Home: None Primary Language: Croatian Smoking Status: Current Everyday Smoker ETOH Use: heavy use Living Will? no Power of Senior Pl Sql Developer/HCP? no Functional Ability ADLs Independent: dressing, eating, toileting, bathing. Ambulation: independent IADLs Independent: shopping, housework, finances, food prep, telephone, transportation , medication admin. Review of Systems Review of Systems: Constitutional: As above ENMT: No sore throat Cardiovascular: No chest pain, palpitations or leg swelling Respiratory: No shortness of breath, cough, or sputum or dyspnea on exertion GI: No GERD or bleeding per rectum : No dysuria or hematuria Musculoskeletal: As above Skin / Breast: No jaundice, rashes or itching Psychiatric: As above Hematologic / lymphatic system: No problems with excessive bleeding, bruising, or blood clots Exam & Diagnostic Data Vital Signs and I&O I reviewed Vital Signs Date Time Temp Pulse Resp B/P B/P Pulse O2 O2 Flow FiO2 Mean Ox Delivery Rate 12/08 0600 99.2 112 20 124/79 12/08 0400 99.2 104 26 116/64 12/08 0400 100 Nasal 2.0L Cannula 12/08 0200 98.7 112 18 132/83 12/08 0000 98.7 106 16 112/80 12/07 2318 100 Nasal 2.0L Cannula 12/07 2300 98.7 116 16 112/80 12/07 2300 98.7 116 16 112/80 100 Nasal 2.0L Cannula 12/07 2228 98.9 116 18 120/70 97 Nasal 2.0L Cannula 12/07 2136 97 12/07 2120 135 18 115/66 98 Room Air 12/07 2014 98.5 123 18 102/59 96 Room Air 12/07 2000 97 Room Air 12/07 1926 101.7 12/07 1742 101.7 146 20 123/74 98 Room Air I reviewed Intake & Output 12/08 0812/08 0000 12/07 1600 12/07 0000 Intake Total 1249 5000 Output Total 950 400 Balance 299 4600 Intake, IV 889 5000 Intake, Oral 360 Output, Urine 950 400 Patient 146 lb Weight Weight Bed scale Measurement Method Physical Exam: Constitutional: pleasant, no acute distress, conversant Eyes: sclera anicteric ENMT: ears and nose atraumatic, moist mucous membranes, poor dentition, no lip lesions Neck: Supple, trachea is midline, no cervical or supraclavicular adenopathy and no palpable thyromegaly Cardiovascular: S1, S2, no murmurs, no peripheral edema Respiratory: clear to auscultation with normal respiratory effort and no intercostal retractions GI: abdomen soft, nontender, nondistended, no palpable hepatosplenomegaly Extremities / lymphatics: symmetrically warm, free range of motion no peripheral edema, no cervical, supraclavicular, axillary, or inguinal adenopathy Musculoskeletal: Did not evaluate gait and station, no digital cyanosis, good muscle strength and tone no atrophy, motor grossly 5 out of 5 throughout Skin: no jaundice, no rashes warm, nondiaphoretic, no areas of erythema or induration Psychiatric: mood and affect are appropriate and alert and oriented to person place and time Last 24 Hours of Labs: I reviewed Laboratory Tests 12/08 12/08 12/08 0530 0230 0230 Chemistry Sodium (137 - 145 mmol/L) 137 Potassium (3.5 - 5.1 mmol/L) 3.2 L Chloride (98 - 107 mmol/L) 109 H Carbon Dioxide (22 - 30 mmol/L) 14 L Anion Gap (5 - 16) 14 BUN (9 - 20 mg/dL) 2 L Creatinine (0.7 - 1.2 mg/dL) 0.6 L Estimated GFR (>60 ml/min) > 60 Glucose (65 - 99 mg/dL) 78 Lactic Acid (0.7 - 2.1 mmol/L) 3.6 H 4.7 H Calcium (8.4 - 10.2 mg/dL) 6.2 L Phosphorus (2.5 - 4.5 mg/dL) 3.4 Magnesium (1.6 - 2.3 mg/dL) 1.5 L Total Bilirubin (0.2 - 1.3 mg/dL) 1.1 Direct Bilirubin (< 0.4 mg/dL) 0.8 H AST (17 - 59 U/L) 112 H ALT (21 - 72 U/L) 40 Alkaline Phosphatase (< 127 U/L) 98 Total Protein (6.3 - 8.2 g/dL) 5.9 L Albumin (3.5 - 5.0 g/dL) 2.0 L Hematology CBC w Diff MAN DIFF ORDERED WBC (4.8 - 10.8 /CUMM) 21.1 H RBC (4.70 - 6.10 /CUMM) 2.59 L Hgb (14.0 - 18.0 G/DL) 9.1 L Hct (42 - 52 %) 26.9 L MCV (80.0 - 94.0 FL) 103.9 H MCH (27.0 - 31.0 PG) 35.0 H MCHC (33.0 - 37.0 G/DL) 33.7 RDW (11.5 - 14.5 %) 14.2 Plt Count (130 - 400 /CUMM) 114 L MPV (7.4 - 10.4 FL) 8.9 Gran % (42.2 - 75.2 %) 91.2 H Lymphocytes % (20.5 - 51.1 %) 2.7 L Monocytes % (1.7 - 9.3 %) 6.1 Eosinophils % (0 - 5 %) 0 Basophils % (0.0 - 2.0 %) 0 Absolute Granulocytes (1.4 - 6.5 /CUMM) 19.2 H Segmented Neutrophils (42.2 - 75.2 %) 85 H Band Neutrophils (0.0 - 5.0 %) 10 H Absolute Lymphocytes (1.2 - 3.4 /CUMM) 0.6 L Lymphocytes (20.5 - 51.1 %) 2 L Monocytes (1.7 - 9.3 %) 3 Absolute Monocytes (0.10 - 0.60 /CUMM) 1.3 H Absolute Eosinophils (0.0 - 0.7 /CUMM) 0 Absolute Basophils (0.0 - 0.2 /CUMM) 0 Platelet Estimate (ADEQUATE) ADEQUATE Polychromasia 1+ Poikilocytosis 1+ Anisocytosis 1+ Macrocytic Cells 1+ Ovalocytes 1+ Other Body Source Fld Total RBCs Counted (%) 100 12/07 12/07 12/07 [id number] Chemistry Lactic Acid (0.7 - 2.1 mmol/L) 5.9 H 7.6 H Toxicology Urine Opiates Screen (>2000 NG/ML) < 100 Methadone Screen (>300 NG/ML) < 40 Barbiturate Screen (>200 NG/ML) < 60 Ur Phencyclidine Scrn (>25 NG/ML) < 6.00 Amphetamines Screen (>1000 NG/ML) < 100 U Benzodiazepines Scrn (>200 NG/ML) < 85 Urine Cocaine Screen (>300 NG/ML) < 50 Urine Cannabis Screen (>50 NG/ML) < 5.00 Urines Urine Color (YEL,AMB,STR) YEL Urine Clarity (CLEAR) HAZY H Urine pH (5.0 - 8.0) 6.5 Ur Specific [place] (1.001 - 1.035) 1.010 Urine Protein (NEG,<30 MG/DL) 30 H Urine Ketones (NEG) NEG Urine Nitrite (NEG) POS H Urine Bilirubin (NEG) NEG Urine Urobilinogen (0.1 - 1.0 EU/dl) 0.2 Ur Leukocyte Esterase (NEG) TRACE H Ur Microscopic SEDIMENT EXAMINED Urine RBC (0 - 5 /HPF) FEW H Urine WBC (0 - 2 /HPF) 1-3 H Ur Epithelial Cells (NONE,FEW) RARE Urine Bacteria (NEG/NONE) MOD H Urine Mucus (FEW,NONE) RARE Urine Hemoglobin (NEG) SMALL H Urine Glucose (N MG/DL) NEG 12/07 1750 Chemistry Sodium (137 - 145 mmol/L) 133 L Potassium (3.5 - 5.1 mmol/L) 3.3 L Chloride (98 - 107 mmol/L) 99 Carbon Dioxide (22 - 30 mmol/L) 13 L Anion Gap (5 - 16) 21 H BUN (9 - 20 mg/dL) 2 L Creatinine (0.7 - 1.2 mg/dL) 0.8 Estimated GFR (>60 ml/min) > 60 BUN/Creatinine Ratio (7 - 25 %) 2.5 L Glucose (65 - 99 mg/dL) 80 Serum Osmolality (285 - 295 MOSM/KG) 302 H Lactic Acid (0.7 - 2.1 mmol/L) 11.3 H Calcium (8.4 - 10.2 mg/dL) 7.1 L Magnesium (1.6 - 2.3 mg/dL) 1.2 L Total Bilirubin (0.2 - 1.3 mg/dL) 1.2 AST (17 - 59 U/L) 141 H ALT (21 - 72 U/L) 37 Alkaline Phosphatase (< 127 U/L) 134 H Creatine Kinase (55 - 170 U/L) 309 H Troponin I (<0.11 ng/ml) 0.02 Total Protein (6.3 - 8.2 g/dL) 6.4 Albumin (3.5 - 5.0 g/dL) 2.3 L Globulin (1.9 - 4.2 gm/dL) 4.1 Albumin/Globulin Ratio (1.1 - 2.2 %) 0.6 L Prealbumin (17.6 - 36.0 mg/dL) 4.9 L Lipase (23 - 300 U/L) 254 Vitamin B12 (239 - 931 pg/mL) > 1000 H TSH &T3 &Free T4 Intrp (0.27 - 4.20 uIU/mL) 2.250 Coagulation PT (9.4 - 12.5 SEC) 15.2 H INR (0.90 - 1.17) 1.39 H APTT (25 - 37 SEC) 33 Hematology CBC w Diff NO MAN DIFF REQ WBC (4.8 - 10.8 /CUMM) 4.1 L RBC (4.70 - 6.10 /CUMM) 2.56 L Hgb (14.0 - 18.0 G/DL) 9.0 L Hct (42 - 52 %) 26.2 L MCV (80.0 - 94.0 FL) 102.5 H MCH (27.0 - 31.0 PG) 35.4 H MCHC (33.0 - 37.0 G/DL) 34.5 RDW (11.5 - 14.5 %) 14.2 Plt Count (130 - 400 /CUMM) 129 L MPV (7.4 - 10.4 FL) 9.2 Gran % (42.2 - 75.2 %) 90.3 H Lymphocytes % (20.5 - 51.1 %) 6.2 L Monocytes % (1.7 - 9.3 %) 3.4 Eosinophils % (0 - 5 %) 0 Basophils % (0.0 - 2.0 %) 0.1 Absolute Granulocytes (1.4 - 6.5 /CUMM) 3.7 Absolute Lymphocytes (1.2 - 3.4 /CUMM) 0.3 L Absolute Monocytes (0.10 - 0.60 /CUMM) 0.1 Absolute Eosinophils (0.0 - 0.7 /CUMM) 0 Absolute Basophils (0.0 - 0.2 /CUMM) 0 Toxicology Serum Alcohol (<10 MG/DL) 101.0 Acetone Level (NEGATIVE) NEGATIVE Assessment/Plan Assessment/Plan To be completed Patient with alcoholic hepatitis and fever question if gallbladder related I reviewed yesterdays CT scan and ultrasound PACS myself compared to prior imaging, wall is thickened no stones, liver is diseased overall this might not all be due to cholecystitis rehydrate we'll reevaluate Consider feeding him first and then HIDA scan Impression patient has improved with hydration, HIDA scan is negative for acute cholecystitis. No gallstones and even presented with abdominal pain and he denies it now and is tolerating diet, so I don't feel he's been having chronic acalculus cholecystitis as suggested by radiology. I don't feel that the cause of his fever I recommend further medical management / workup no surgery is indicated. The changes seen on CT with respect to stranding or edema or wall thickening may be related to hypoalbuminemia and nutrition. If he worsens I recommend re-CT because of the vague suggestion of some inflammation by the colon but again, he has no abdominal pain. Problem List: 1. Alcohol abuse 2. Increased anion gap metabolic acidosis Consult Acknowledgment - Thank you for your consult request.
--- NOTE | 2017-12-08 15:54 | NUCLEAR MEDICINE REPORT ---
BILIARY TRACT IMAGING STUDY CLINICAL INDICATION: Acute biliary pathology. Acalculous cholecystitis. PROCEDURE: Scintillation camera images were obtained over the abdomen for an observation of 95 minutes following the intravenous administration of 5.3 millicuries technetium 99m Choletec. COMPARISON: No previous biliary scan is available for comparison. Abdominal ultrasound dated 12/07/[address] scan of the chest, abdomen, and pelvis also dated 12/07/2017 are available for comparison.. FINDINGS: There is good concentration of activity in the liver by 5 minutes post injection. Biliary activity is well visualized by 25 minutes, and there is good visualization of small bowel activity by 30 minutes. The gallbladder is not visualized on the initial 60 minutes of imaging, but there is faint gallbladder visualization by 70 minutes. At the end of the study at 95 minutes post injection there is abnormal persistent activity diffusely in the liver but the gallbladder continues to be visualized. Diffuse small bowel activity is also visualized at this time. IMPRESSION: Abnormal study. Visualization of the gallbladder after 60 minutes is abnormal and most consistent with chronic cholecystitis. Visualization of the gallbladder is evidence of a patent cystic duct and strong evidence against the diagnosis of acute cholecystitis. The common bile duct is patent. There is prolonged retention of activity in the liver, and this is evidence of diffuse hepatocellular disease.
[2017-12-09] VITALS (11 sets, daily range): BP systolic 103–140; BP diastolic 60–91
[2017-12-09 04:07] LABS: ABSOLUTE BASOPHIL COUNT 0 /CUMM (0.0-0.2); ABSOLUTE EOSINOPHIL COUNT 0 /CUMM (0.0-0.7); ABSOLUTE GRANULOCYTE CT 12.2 /CUMM (1.4-6.5); ABSOLUTE LYMPH COUNT 1.1 /CUMM (1.2-3.4); ABSOLUTE MONOCYTE COUNT 0.9 /CUMM (0.10-0.60); BASOPHIL % 0.1 % (0.0-2.0); EOSINOPHIL % 0 % (0-5); GRANULOCYTE % 85.7 % (42.2-75.2); HEMATOCRIT 27.6 % (42-52); MEAN CORPUSCULAR HGB 35.3 PG (27.0-31.0); MEAN CORPUSCULAR HGB CONC 33.9 G/DL (33.0-37.0); MEAN PLATELET VOLUME 9.7 FL (7.4-10.4); PLATELET COUNT 112 /CUMM (130-400); RBC DISTRIBUTION WIDTH 14.5 % (11.5-14.5); RED BLOOD CELL CT 2.65 /CUMM (4.70-6.10); WHITE BLOOD CELL COUNT 14.2 /CUMM (4.8-10.8)
--- NOTE | 2017-12-09 07:18 | PN- Resident CRCU ---
Subjective HPI/CRCU Issues: severe sepsis EtOH withdrawal elevated anion gap metabolic acidosis from lactic acidemia hypokalemia hypocalcemia hypomagnesia anemia thrombocytopenia 24 Hour Events: CIWA scoring dramatically increased overnight from 2 yesterday to 20, requiring 9mg of IV PRN doses of ativan overnight lactic acidemia remains significantly improved after aggressive crystalloid resuscitation afebrile, blood cultures positive for GPCs, vancomycin 1g IV q12h started remains tachycardic HR 120-130s, combination of EtOH withdrawal disoriented this morning, lethargic, withdrawing from alcohol Objective Vital Signs & I&O Last 8 Hrs of Vitals and I&O: Intake & Output 12/09 1600 Intake Total Output Total Balance Patient 68.691 kg Weight Weight Bed scale Measurement Method Exam General Appearance: alert, awake, mild distress, disoriented this morning, tremulous from etoh withdrawal Respiratory: decreased breath sounds, wheezing Cardiovascular: tachycardia Gastrointestinal: normal bowel sounds, soft, non-tender Extremities: normal inspection, no edema Current Medications: Current Medications Sig/Christal Start time Last Medication Dose Route Stop Time Status Admin Albuterol Sulfate 3 ML BID 12/09 1028 AC 12/09 INH 1029 Calcium Carbonate 1,250 MG BID 12/09 0900 AC PO Calcium Carbonate 650 MG BID 12/08 1110 DC 12/08 PO 2105 Calcium Gluconate 1 GM ONCE ONE 12/09 0845 DC Sodium Chloride 100 ML IV 12/09 0944 Ceftriaxone Sodium 1,000 MG 2200 12/07 2200 AC 12/08 IV 2104 Folic Acid 1 MG DAILY 12/08 0900 AC 12/09 PO 0829 Heparin Sodium 5,000 UNIT Q8 12/08 1400 AC 12/09 (Porcine) SC 0524 Ipratropium [place] 2.5 ML BID 12/09 1028 AC 12/09 INH 1029 Lorazepam 2 MG Q4 12/09 1000 DC 12/09 PO 0828 Lorazepam 2 MG Q4 12/09 1000 AC 12/09 IV 0905 Lorazepam 2 MG Q6 12/07 2359 DC 12/08 PO 1749 Lorazepam 0 Q1P PRN 12/07 2345 AC 12/09 IV 0528 Magnesium Oxide 400 MG DAILY 12/09 0900 AC 12/09 PO 0830 Magnesium Sulfate 1 GM Q2H 12/09 0815 AC 12/09 Dextrose/Water 100 ML IV 12/09 1214 1022 Magnesium Sulfate 1 GM ONCE ONE 12/08 1630 DC 07 Dextrose/Water 100 ML IV 12/08 2029 1749 Metoprolol Tartrate 5 MG ONCE ONE 12/09 0930 DC 12/09 IV 12/09 0931 1022 Metronidazole 500 MG IQ8 12/08 0000 DC 12/09 N/A 1 UNIT IV 12/09 1200 0825 Multivitamins 1 TAB DAILY 12/08 0900 AC 12/09 PO 0829 Nicotine 14 MG DAILY 12/08 0900 AC 12/09 TOP 0829 Omeprazole 40 MG DAILY AC 12/09 0700 AC PO Pantoprazole Sodium 40 MG ONCE ONE 12/09 0530 DC 12/09 IV 12/09 0531 0548 Pantoprazole Sodium 40 MG DAILY 12/08 0900 DC 12/08 IV 0827 Phosphate 250 MG PC AND AT BEDTIME 12/09 0900 CAN PO 12/09 2101 Phosphate 250 MG PC AND AT BEDTIME 12/08 1300 AC 12/09 PO 12/10 0901 0828 Potassium Chloride 20 MEQ .STK-MED ONE 12/08 1801 DC PO 12/08 1802 Potassium Chloride 40 MEQ ONCE ONE 12/08 1645 DC 07/ PO 07 1646 1749 Potassium Chloride 20 MEQ ONCE ONE 12/08 1645 DC 07 PO 12/08 1646 1749 Potassium Chloride 40 MEQ ONCE ONE 12/08 1100 DC 12/08 PO 12/08 1101 1526 Potassium Phosphate 15 mMol ONE ONE 12/09 0815 AC Dextrose/Water 250 ML IV 12/09 1219 Sodium Chloride 1,000 ML BOLUS ONE 12/09 0815 DC 12/09 IV 12/09 1014 0825 Sodium Chloride 500 ML BOLUS ONE 12/08 2300 DC 12/08 IV 12/08 2359 2253 Sodium Chloride 1,000 ML BOLUS ONE 12/08 1845 DC 07 IV 12/08 2044 1859 Sodium Chloride 1,000 ML BOLUS ONE 12/08 1300 DC 07 IV 07 1459 1300 Sodium Chloride 1,000 ML Q7H 12/08 1045 AC 12/09 IV 0340 Sodium Chloride 1,000 ML BOLUS ONE 12/08 1030 DC 07 IV 07 1229 0930 Sodium Chloride 1,000 ML Q8H 12/07 2345 DC 12/08 IV 0037 Thiamine HCl 500 MG TID 12/08 1400 AC 12/09 Sodium Chloride 250 ML IV 07/13 1412 0937 Thiamine HCl 100 MG DAILY 12/08 0900 AC 12/09 PO 0829 Vancomycin HCl 1,000 MG Q12 12/09 0900 AC 12/09 Sodium Chloride 250 ML IV 0920 Vancomycin HCl 1,000 MG ONCE ONE 12/08 1745 DC 12/08 Sodium Chloride 250 ML IV 12/08 1844 2006 Impression/Plan Impression/Problem List Impression: 57 year old male with past medical history significant for heavy smoking and alcohol use disorder, history of alcohol withdrawal seizure, delirium tremens requiring ICU admission in 2013, and chronic back pain on disability was brought in for fevers, chills, diarrhea, and weakness. Severe sepsis-uncertain source Febrile to 101.7, sinus tachycardia up to 140s, leukocytosis with bandemia, lactic acidemia Blood cultures GPCs yesterday, started on Vancomycin Final culture coag negative staph, likely contaminant, antibiotics to be discontinued Lactic acidemia and heart rate improved but after multiple fluid boluses HIDA scan findings consistent with chronic cholecystitis, no abdominal pain Ceftriaxone and metronidazole discontinued May need cholecystectomy in the future Leukocytosis improved from 21 to 14,000, 10 -> 5 bands Continue ceftriaxone for now Anion Gap Metabolic Acidosis: Possible starvation ketosis, ethanol, but most likely due to sepsis and lactic acidemia methanol, ethylene glycol, isopropyl alcohol all negative Lactic acidemia, 11.3 on presentation improved to 2.1 with aggressive fluid resuscitation Discontinued antibiotics Bicarbonate normal on todays chemistry Electrolyte Abnormalities Hypokalemia 3.2, repleted now normal Hypomagnesemia 1.2-> 1.5, repleted PO and IV Hypocalcemia 6.1 repleting IV and PO Hypophosphatemia 1.7, repleting IV and PO Trend daily Alcohol dependence and withdrawal: Liver synthetic dysfunction Elevated INR 1.39 and hypoalbuminemia 2.3 High dose thiamine treatment 500mg iv tid x 3 days Continue multivitamin, thiamine, and folate CIWA monitoring, 2-20 last 24 hours Patient is increasingly deliriuous, tremulous, tachycardic, severe alcohol withdrawal Change Ativan to 2mg IV q4H standing plus prn per CIWA protocol Received 9mg IV Ativan overnight for withdrawal signs and symptoms Repeat echocardiogram for possible alcohol dilated cardiomyopathy Repeat echo unchanged from 2016 LVEF 45% with mild global hypokinesia Transaminitis AST>ALT consistent with alcoholic liver disease Moderate to Severe Malnutrition Low prealbumin 4.9 Nutrition consulted Chronic Anemia With elevated MCV 104 Vitamin B12 wnl Heme positive stools Consider gastroenterology consultation for EGD, variceal evaluation with h/o EtOH Continue B12/folate supplementation Thrombocytopenia: Appears to be chronic from old labs, likely due to EtOH Regular diet DVT ppx-heparin sc and ALPS Full Code Problem List: 1. Alcohol withdrawal 2. Hypokalemia 3. Hypomagnesemia 4. Malnutrition 5. Fever 6. Increased anion gap metabolic acidosis 7. Acalculous cholecystitis Pain Ratin Tomorrow's Labs & Rationales: cbc, icu bundle Plan DVT/Prophylaxis: mechanical, pharmacological
--- NOTE | 2017-12-09 07:36 | PN- CRCU ---
Subjective HPI/Critical Care Issues: Overnight events noted. The patient has become progressively confused and agitated. He is tremulous with episodes of increased tachycardia. His CIWA scores are elevated and he is requiring escalating doses of Ativan. He is not able to offer complaints. His respiratory status stable noting he is now on nasal cannula at 1 L. Objective Current Medications: Current Medications Sig/Christal Start time Last Medication Dose Route Stop Time Status Admin Calcium Carbonate 650 MG BID 12/08 1110 AC 12/08 PO 210 Ceftriaxone Sodium 1,000 MG 2200 12/07 2200 AC 12/08 IV 2104 Folic Acid 1 MG DAILY 12/08 0900 AC 12/08 PO 0830 Heparin Sodium 5,000 UNIT Q8 12/08 1400 AC 12/09 (Porcine) SC 0524 Lorazepam 2 MG Q6 12/07 2359 AC 12/08 PO 1749 Lorazepam 0 Q1P PRN 12/07 2345 AC 12/09 IV 0528 Magnesium Sulfate 1 GM ONCE ONE 12/08 1630 DC 12/08 Dextrose/Water 100 ML IV 12/08 2029 1749 Magnesium Sulfate 1 GM Q2H 12/08 0530 DC 12/08 Dextrose/Water 100 ML IV 12/08 0929 0635 Metronidazole 500 MG IQ8 12/08 0000 AC 12/08 N/A 1 UNIT IV 2356 Multivitamins 1 TAB DAILY 12/08 0900 AC 12/08 PO 0830 Nicotine 14 MG DAILY 12/08 0900 AC 12/08 TOP 0830 Omeprazole 40 MG DAILY AC 12/09 0700 AC PO Pantoprazole Sodium 40 MG ONCE ONE 12/09 0530 DC 12/09 IV 12/09 0531 0548 Pantoprazole Sodium 40 MG DAILY 12/08 0900 DC 12/08 IV 0827 Phosphate 250 MG PC AND AT BEDTIME 12/08 1300 AC 12/08 PO 12/10 0901 2104 Potassium Chloride 20 MEQ .STK-MED ONE 12/08 1801 DC PO 12/08 1802 Potassium Chloride 40 MEQ ONCE ONE 12/08 1645 DC 12/08 PO 12/08 1646 1749 Potassium Chloride 20 MEQ ONCE ONE 12/08 1645 DC 12/08 PO 12/08 1646 1749 Potassium Chloride 40 MEQ ONCE ONE 12/08 1100 DC 12/08 PO 12/08 1101 1526 Sodium Chloride 500 ML BOLUS ONE 12/08 2300 DC 12/08 IV 12/08 2359 2253 Sodium Chloride 1,000 ML BOLUS ONE 12/08 1845 DC 12/08 IV 12/08 2044 1859 Sodium Chloride 1,000 ML BOLUS ONE 12/08 1300 DC /10 IV 12/08 1459 1300 Sodium Chloride 1,000 ML Q7H 12/08 1045 AC 12/09 IV 0340 Sodium Chloride 1,000 ML BOLUS ONE 12/08 1030 DC 12/08 IV 12/08 1229 0930 Sodium Chloride 1,000 ML Q8H 12/07 2345 DC 12/08 IV 0037 Thiamine HCl 500 MG TID 12/08 1400 AC 12/08 Sodium Chloride 250 ML IV 12/11 1412 2104 Thiamine HCl 100 MG DAILY 12/08 0900 AC 12/08 PO 0830 Vancomycin HCl 1,000 MG ONCE ONE 12/08 1745 DC 12/08 Sodium Chloride 250 ML IV 12/08 1844 2006 Vital Signs & I&O Last 24 Hrs of Vitals and I&O: Vital Signs Date Time Temp Pulse Resp B/P B/P Pulse O2 O2 Flow FiO2 Mean Ox Delivery Rate 12/09 0600 98.1 128 23 132/77 12/09 0515 98.1 118 20 118/82 12/09 0400 99 Nasal 1.0L Cannula 12/09 0300 98.4 128 21 140/91 12/09 0200 98.4 114 21 129/82 12/09 0000 98.4 110 24 111/79 12/09 0000 98.4 114 22 116/84 100 Nasal 1.0L Cannula 12/09 0000 100 Nasal 1.0L Cannula 12/08 2300 98.7 112 24 116/84 12/08 2200 98.7 130 26 133/85 12/09 1999 98.7 100 20 104/60 12/08 2000 99 Nasal 1.0L Cannula 12/08 1600 99 Nasal 1.0L Cannula 12/08 1600 98.2 101 20 106/62 98 Nasal 1.0L Cannula 12/08 1200 99 Nasal 1.0L Cannula 12/08 0800 99.3 111 18 108/68 12/08 0800 99.3 111 18 108/68 100 Nasal 1.0L Cannula 12/08 0800 100 Nasal 1.0L Cannula Intake & Output 12/09 0800 07 0000 12/08 1600 Intake Total 1476 3130 2885 Output Total 1400 1450 2075 Balance 76 1680 810 Intake, IV 1476 2250 2525 Intake, Oral 880 360 Number 1 2 1 Bowel Movements Output, Urine 1400 1450 2075 Patient 146 lb Weight Weight Bed scale Measurement Method Physical Exam General Appearance: Confused, tremulous, chronically ill-appearing, appears much older than stated age Respiratory: decreased breath sounds, wheezing Cardiovascular: tachycardia, no murmur Gastrointestinal: normal bowel sounds, soft, non-tender Extremities: normal inspection, normal capillary refill, no edema, right shoulder pain limiting deltoid flexion Results Last 24 Hrs of Lab Results: Laboratory Tests 12/09/17 0630: Lactic Acid 2.5 H 12/09/17 0335: Lactic Acid 2.4 H 12/09/17 0335: Anion Gap 9, Estimated GFR > 60, Glucose 87, Calcium 6.1 L, Phosphorus 1.7 L, Magnesium 1.5 L, Total Bilirubin 1.2, AST 116 H, ALT 39, Albumin 2.0 L, 25-OH Vitamin D Total Pending, CBC w Diff MAN DIFF ORDERED, RBC 2.65 L, MCV 104.0 H, MCH 35.3 H, MCHC 33.9, RDW 14.5, MPV 9.7, Gran % 85.7 H, Lymphocytes % 7.8 L, Monocytes % 6.4, Eosinophils % 0, Basophils % 0.1, Absolute Granulocytes 12.2 H , Segmented Neutrophils 89 H, Band Neutrophils 5, Absolute Lymphocytes 1.1 L, Lymphocytes 3 L, Monocytes 2, Absolute Monocytes 0.9 H, Eosinophils 1, Absolute Eosinophils 0, Absolute Basophils 0, Platelet Estimate ADEQUATE, Polychromasia 1+, Poikilocytosis 1+, Anisocytosis 1+, Macrocytic Cells 1+, Ovalocytes 1+, Fld Total RBCs Counted 100 12/09/17 0030: Lactic Acid 2.3 H 12/08/17 2227: Lactic Acid Cancelled 12/08/17 2140: Lactic Acid 2.1 12/08/17 1840: Lactic Acid 2.9 H 12/08/17 1532: Lactic Acid Cancelled 12/08/17 1520: Lactic Acid 3.5 H 12/08/17 1139: Lactic Acid 4.6 H 12/08/17 1139: Anion Gap 11, Estimated GFR > 60, Glucose 102 H, Calcium 6.2 L, Phosphorus 2.8 , Magnesium 1.7, Total Bilirubin 1.1, AST 115 H, ALT 33, Albumin 2.0 L, Ethylene Glycol NOT DETECTED, Methyl Alcohol, Quant NOT DETECTED, Isopropanol NOT DETECTED 12/08/17 1130: Urine Color YEL, Urine Clarity CLEAR, Urine pH 6.0, Ur Specific [place] 1.010, Urine Protein NEG, Urine Ketones NEG, Urine Nitrite NEG, Urine Bilirubin NEG, Urine Urobilinogen 0.2, Ur Leukocyte Esterase NEG, Ur Microscopic SEDIMENT EXAMINED, Urine RBC 25-50 H, Urine WBC RARE, Ur Epithelial Cells FEW, Urine Bacteria FEW H, Urine Hemoglobin MOD H, Urine Glucose NEG Last 24 Hrs of Micro Results: Blood cultures positive for gram-positive cocci in both sets, from 12/07/2017. The patient is on ceftriaxone and received a dose of vancomycin. Impression/Plan Impression/Plan Impression/Plan: 1. Alcohol withdrawal, with history of withdrawal seizures and delirium tremens. The patient CIWA scores are significantly elevated noting that his agitation and confusion are worsening. 2. Severe lactic acidosis secondary to starvation ketosis and alcohol consumption. 3. Electrolyte abnormalities including hypomagnesemia, hypokalemia, and hypocalcemia. 4. 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 5. Malnutrition. 6. Tobacco use disorder, noting the patient smokes 3 packs per day. Wheezing is improving over the past 24 hours. 7. Acalculous cholecystitis -chronic on HIDA scan. 8. Macrocytic anemia without evidence of bleeding. 9. Fever, leukocytosis and blood cultures positive for gram-positive cocci. The urine is the most likely source. The patient's fevers are improved as is his white count on ceftriaxone and Flagyl. Recommendations: * Follow-up blood culture results. * Continue ceftriaxone pending results. * Continue to monitor on CIWA protocol. We will start an Ativan drip if necessary. * Complete course of high-dose thiamine regimen. * Continue multivitamin and folate treatment. * Continue to monitor electrolytes and replete as necessary. * Aspiration precautions. * Encourage nutritional intake as tolerated. * DVT prophylaxis at all times. * Continue to monitor closely in the critical care unit. The patient is at risk for ongoing deterioration considering his long history of alcohol dependency, previous seizures and previous delirium tremens. He is at high risk for progression into DTs. I discussed the plan of care with the house staff and asked him to contact me should the patient's condition change or deteriorate.
--- NOTE | 2017-12-09 09:49 | ECHOCARDIOGRAM REPORT ---
PORTIA GONZALEZ Age: 57 : 1960 Gender: M Exam Date: 12/08/2017 10:42 Exam Location: [facility] Ht (in): 71 Wt (lb): 120 BSA: 1.63 BP: 124 / 79 Ordering Physician: Jl Pinto MD Referring Physician: Jl Pinto MD Technologist: Sd Varela [facility] Room Number: 108 Indications: CARDIOMYOPATHY Rhythm: Sinus Technical Quality: Technically difficult study FINDINGS Left Ventricle Normal size left ventricle. Mildly decreased left ventricular systolic function. Left ventricular ejection fraction is estimated at 45-50%. Mild global hypokinesis. Normal left ventricular wall thickness. Right Ventricle Normal right ventricular size and function. Right Atrium Normal right atrial size. Left Atrium Normal left atrial size. Mitral Valve Mild mitral annular calcification. Trace mitral regurgitation. Aortic Valve Aortic valve mildly thickened. No aortic stenosis. No aortic regurgitation. Tricuspid Valve Tricuspid valve not well visualized, grossly normal. Trace tricuspid regurgitation. Pulmonic Valve Pulmonic valve not well visualized, grossly normal. Trace pulmonic regurgitation. Pericardium No pericardial effusion. Great Vessels Normal size aortic root. CONCLUSIONS Normal size left ventricle. Mildly decreased left ventricular systolic function. Left ventricular ejection fraction is estimated at 45-50%. Mild global hypokinesis. Juvencio Mcbride M.D. (Electronically Signed) Final Date: 09 December 2017 09:45 MEASUREMENTS (Male / Female) Normal Values 2D ECHO LV Diastolic Diameter PLAX 5.2 cm 4.2 - 5.9 / 3.9 - 5.3 cm LV Systolic Diameter PLAX 3.9 cm 2.1 - 4.0 cm LV Fractional Shortening PLAX 25.0 % 25 - 46 % LV Ejection Fraction 2D Teich 49.1 % IVS Diastolic Thickness 0.9 cm LVPW Diastolic Thickness 1.0 cm LV Relative Wall Thickness 0.4 LVOT Diameter 2.4 cm Aortic Root Diameter 3.0 cm LA Systolic Diameter LX 3.3 cm 3.0 - 4.0 / 2.7 - 3.8 cm LA Volume 37.0 cm 18 - 58 / 22 - 52 cm Ascending Aorta Diameter 2.8 cm DOPPLER AV Peak Velocity 130.0 cm/s AV Peak Gradient 6.8 mmHg AV Mean Velocity 93.8 cm/s AV Mean Gradient 4.0 mmHg AV Velocity Time Integral 27.6 cm LVOT Peak Velocity 81.2 cm/s LVOT Peak Gradient 2.6 mmHg LVOT Mean Velocity 46.9 cm/s LVOT Mean Gradient 1.0 mmHg LVOT Velocity Time Integral 16.4 cm LVOT Stroke Volume 74.2 cm AV Area Cont Eq vti 2.7 cm AV Area Cont Eq pk 2.8 cm MV Peak Velocity 85.5 cm/s MV Peak Gradient 2.9 mmHg MV Mean Velocity 52.1 cm/s MV Mean Gradient 1.0 mmHg Mitral E Point Velocity 84.9 cm/s Mitral A Point Velocity 80.0 cm/s Mitral E to A Ratio 1.1 MV PHT Velocity 88.2 cm/s MV Deceleration [place] 737.0 cm/s MV Pressure Half Time 35.9 ms MV Area PHT 6.1 cm MV Deceleration Time 102.0 ms PV Peak Velocity 96.5 cm/s PV Peak Gradient 3.7 mmHg PV Mean Velocity 65.5 cm/s PV Mean Gradient 2.0 mmHg PV Velocity Time Integral 19.3 cm
[2017-12-10] VITALS (8 sets, daily range): BP systolic 92–132; BP diastolic 59–86
[2017-12-10 04:33] LABS: ABSOLUTE BASOPHIL COUNT 0 /CUMM (0.0-0.2); ABSOLUTE EOSINOPHIL COUNT 0 /CUMM (0.0-0.7); ABSOLUTE GRANULOCYTE CT 7.6 /CUMM (1.4-6.5); ABSOLUTE MONOCYTE COUNT 0.8 /CUMM (0.10-0.60); BASOPHIL % 0.3 % (0.0-2.0); EOSINOPHIL % 0.2 % (0-5); GRANULOCYTE % 73.1 % (42.2-75.2); HEMATOCRIT 24.9 % (42-52); MEAN CORPUSCULAR HGB 34.5 PG (27.0-31.0); MEAN CORPUSCULAR HGB CONC 33.4 G/DL (33.0-37.0); MEAN CORPUSCULAR VOLUME 103.2 FL (80.0-94.0); MEAN PLATELET VOLUME 10.3 FL (7.4-10.4); PLATELET COUNT 114 /CUMM (130-400); RBC DISTRIBUTION WIDTH 14.3 % (11.5-14.5); RED BLOOD CELL CT 2.41 /CUMM (4.70-6.10); WHITE BLOOD CELL COUNT 10.3 /CUMM (4.8-10.8)
--- NOTE | 2017-12-10 07:29 | PN- CRCU ---
Subjective HPI/Critical Care Issues: The patient remains confused and tremulous with episodes of intermittent tachycardia. His CIWA scores are elevated and he is requiring Ativan for control. He is not able to offer complaints. He had difficulty with expectoration and was placed on humidified oxygen to help with mucociliary clearance. He appears in mild respiratory distress at the bedside. Objective Current Medications: Current Medications Sig/Christal Start time Last Medication Dose Route Stop Time Status Admin Albuterol Sulfate 3 ML BID 12/09 1028 AC 12/09 INH 1845 Calcium Carbonate 1,250 MG BID 12/09 0900 AC PO Calcium Carbonate 650 MG BID 12/08 1110 DC 12/08 PO 2105 Calcium Gluconate 1 GM ONCE ONE 12/09 0845 DC 12/09 Sodium Chloride 100 ML IV 12/09 0944 1211 Ceftriaxone Sodium 1,000 MG 2200 12/07 2200 AC 12/09 IV 2237 Dextrose/Sodium 1,000 ML Q10H 12/09 1615 AC 12/10 Chloride IV 0420 Folic Acid 1 MG DAILY 12/08 0900 AC 12/09 PO 0829 Heparin Sodium 5,000 UNIT Q8 12/08 1400 AC 12/10 (Porcine) SC 0608 Ipratropium [place] 2.5 ML BID 12/09 1028 AC 12/09 INH 1845 Lorazepam 2 MG Q4 12/09 1000 DC 12/09 PO 0828 Lorazepam 2 MG Q4 12/09 1000 AC 12/10 IV 0608 Lorazepam 2 MG Q6 12/07 2359 DC 12/08 PO 1749 Lorazepam 0 Q1P PRN 12/07 2345 AC 12/09 IV 0528 Magnesium Oxide 400 MG DAILY 12/09 0900 AC 12/09 PO 0830 Magnesium Sulfate 1 GM Q2H 12/10 0515 AC 12/10 Dextrose/Water 100 ML IV 12/10 0914 0614 Magnesium Sulfate 1 GM Q2H 12/09 0815 DC 12/09 Dextrose/Water 100 ML IV 12/09 1214 1211 Metoprolol Tartrate 5 MG ONCE ONE 12/09 0930 DC 12/09 IV 12/09 0931 1022 Metronidazole 500 MG IQ8 12/08 0000 DC 12/09 N/A 1 UNIT IV 12/09 1200 0825 Multivitamins 1 TAB DAILY 12/08 09 AC 12/09 PO 0829 Nicotine 14 MG DAILY 12/08 0900 AC 07/11 TOP 0829 Omeprazole 40 MG DAILY AC 12/09 0700 AC PO Phosphate 250 MG PC AND AT BEDTIME 12/09 0900 CAN PO 12/09 2101 Phosphate 250 MG PC AND AT BEDTIME 12/08 1300 AC 12/09 PO 12/10 0901 0828 Potassium Chloride 10 MEQ Q1H 12/10 0515 DC 12/10 IV 12/10 0616 0625 Potassium Phosphate 15 mMol ONE ONE 12/10 0715 AC Sodium Chloride 250 ML IV 12/10 1119 Potassium Phosphate 15 mMol ONE ONE 12/09 0815 DC 12/09 Dextrose/Water 250 ML IV 12/09 1219 1037 Sodium Chloride 1,000 ML BOLUS ONE 12/09 0815 DC 12/09 IV 12/09 1014 0825 Sodium Chloride 1,000 ML Q7H 12/08 1045 DC 12/09 IV 1355 Thiamine HCl 500 MG TID 12/08 1400 AC 12/09 Sodium Chloride 250 ML IV 12/11 1412 2137 Thiamine HCl 100 MG DAILY 12/08 0900 AC 12/09 PO 0829 Vancomycin HCl 1,000 MG Q12 12/09 0900 DC 12/09 Sodium Chloride 250 ML IV 0920 Vital Signs & I&O Last 24 Hrs of Vitals and I&O: Vital Signs Date Time Temp Pulse Resp B/P B/P Pulse O2 O2 Flow FiO2 Mean Ox Delivery Rate 12/10 0600 100 20 132/86 12/10 0400 97.5 100 18 118/60 12/10 0400 100 Venti Mask 28% 12/10 0200 102 18 112/74 12/10 0000 98.0 103 20 120/60 12/10 0000 100 Venti Mask 28% 12/10 0000 98.0 103 20 120/60 100 Venti Mask 28% 12/09 2100 98.6 112 20 103/74 12/10 2019 97 Aerosol 28% Mask 12/10 1999 98.6 111 20 112/60 12/10 1999 95 Venti Mask 28% 12/09 1845 96 Nasal 1.0L Cannula 12/09 1825 98.8 104 18 113/68 12/09 1647 9.8 103 20 111/66 12/09 1647 97 12/09 1647 98.8 100 20 112/66 94 Nasal 1.0L Cannula 12/09 1200 99 Nasal 1.0L Cannula 12/09 1200 99.5 108 22 112/64 95 Nasal 1.0L Cannula 12/09 1033 Nasal 1.0L Cannula 12/09 1022 123 131/67 12/09 0800 98.9 122 19 130/84 12/09 0800 98.9 122 19 130/84 99 Nasal 1.0L Cannula 12/09 08 99 Nasal 1.0L Cannula Intake & Output 12/10 0800 12/10 0000 12/09 1600 Intake Total 900 1350 3116 Output Total 908 122 1947 Balance 677 322 7801 Intake, IV 900 1350 3016 Intake, Oral 0 100 Number 1 1 Bowel Movements Output, Urine 135 496 4226 Patient 151 lb Weight Weight Bed scale Measurement Method Physical Exam General Appearance: Confused, tremulous, chronically ill-appearing, appears much older than stated age Respiratory: decreased breath sounds, wheezing, scattered crackles Cardiovascular: tachycardia, no murmur Gastrointestinal: normal bowel sounds, soft, non-tender Extremities: normal inspection, normal capillary refill, no LE edema, increased right upper extremity edema Results Last 24 Hrs of Lab Results: Laboratory Tests 12/10/17 0350: Anion Gap 8, Estimated GFR > 60, Glucose 131 H, Calcium 6.3 L, Phosphorus 1.7 L, Magnesium 1.5 L, Total Bilirubin 0.9, AST 68 H, ALT 46, Albumin 1.9 L, CBC w Diff NO MAN DIFF REQ, RBC 2.41 L, MCV 103.2 H, MCH 34.5 H, MCHC 33.4, RDW 14.3, MPV 10.3, Gran % 73.1, Lymphocytes % 18.9 L, Monocytes % 7.5, Eosinophils % 0.2, Basophils % 0.3, Absolute Granulocytes 7.6 H, Absolute Lymphocytes 2.0, Absolute Monocytes 0.8 H, Absolute Eosinophils 0, Absolute Basophils 0 12/09/17 2355: Lactic Acid 1.4 12/09/17 1010: Lactic Acid 2.1 Impression/Plan Impression/Plan Impression/Plan: 1. Severe alcohol withdrawal with delerium tremens. 2. Gram-positive cocci in urine culture suggestive of UTI. Coag negative staph in the blood. The patient's fever, and white blood cell count have improved on ceftriaxone. 3. Progressive anemia, without evidence of bleeding. 4. Malnutrition. 5. Toxic metabolic encephalopathy. 6. Severe lactic acidosis secondary to starvation ketosis and alcohol consumption. 7. Electrolyte abnormalities including hypomagnesemia, hypokalemia, and hypocalcemia. 8. Tobacco use disorder, noting the patient smokes 3 packs per day. 9. Acalculous cholecystitis -chronic on HIDA scan. 10. Increased right upper extremity edema, likely secondary to frequent blood pressure monitoring. Cough is now removed and we will monitor. Recommendations: * Check a stat portable chest x-ray. * Will consider Lasix if the patient has evidence of volume overload. * Continue with aggressive potassium, mg and phos repletion and repeat levels later today. * Continue CIWA protocol, avoid oversedation. * Guaiac all stools. Monitor for bleeding. * Recheck a CBC this afternoon to ensure the patient's hemoglobin remained stable. * Continue ceftriaxone pending results. * Complete course of high-dose thiamine regimen. * Continue multivitamin and folate treatment. * Aspiration precautions. * Encourage nutritional intake as tolerated. * DVT prophylaxis at all times. * Monitor right upper extremity swelling. Will order an ultrasound if the swelling does not improve. * Discussed plan of care with the housestaff. I asked him to contact me should the patient's condition change or deteriorate. * The patient's was updated at the bedside.
--- NOTE | 2017-12-10 07:33 | PN- Resident CRCU ---
Subjective HPI/CRCU Issues: severe sepsis EtOH withdrawal elevated anion gap metabolic acidosis from lactic acidemia hypokalemia hypocalcemia hypomagnesia anemia thrombocytopenia 24 Hour Events: patient was made NPO for concern for ongoing aspiration with metabolic encephalopathy from EtOH withdrawal, currently unable to participate in a swallow evaluation, on D5-1/2NS patient has developed some upper extremity edema and has significantly positive fluid balance after treatment for severe sepsis and lactic acidemia severe electrolyte derangements being repleted intravenously, on high dose thiamine treatment CIWAs 2-14 in the last 24 hours, currently on Ativan 2mg IV q4h standing + 5mg additional prn given overnight Objective Vital Signs & I&O Last 8 Hrs of Vitals and I&O: Temp 97.5 HR 100 RR 20 BP 132/86 SpO2 100% on humidified mask fio2 .28 Exam General Appearance: awake, mild distress, tachypneic, on supplemental o2 humidified, oriented to self only Respiratory: wheezing improved, diminished breath sounds diffusely Cardiovascular: normal peripheral pulses, tachycardia Gastrointestinal: normal bowel sounds, soft, non-tender Extremities: normal inspection, normal capillary refill, normal range of motion, bilateral upper extremity edema R>L, BP cuff moved Current Medications: Current Medications Sig/Christal Start time Last Medication Dose Route Stop Time Status Admin Albuterol Sulfate 3 ML BID 12/09 1028 AC 12/10 INH 0843 Calcium Carbonate 1,250 MG BID 12/09 899 PO Ceftriaxone Sodium 1,000 MG 2200 12/07 2200 AC 12/09 IV 2237 Dextrose/Sodium 1,000 ML Q10H 12/09 1615 AC 12/10 Chloride IV 0420 Folic Acid 1 MG DAILY 12/08 0900 12/10 PO 1105 Heparin Sodium 5,000 UNIT Q8 12/08 1400 AC 12/10 (Porcine) SC 0608 Ipratropium [place] 2.5 ML BID 12/09 1028 AC 12/10 INH 0843 Lorazepam 2 MG Q4 12/09 1000 AC 12/10 IV 0608 Lorazepam 0 Q1P PRN 12/07 2345 AC 12/09 IV 0528 Magnesium Oxide 400 MG DAILY 12/09 0900 AC 12/09 PO 0830 Magnesium Sulfate 1 GM ONCE ONE 12/10 0745 KS 12/10 Dextrose/Water 100 ML IV 12/10 1144 0807 Magnesium Sulfate 1 GM Q2H 12/10 0515 KS 12/10 Dextrose/Water 100 ML IV 12/10 0914 0850 Magnesium Sulfate 1 GM Q2H 12/09 0815 DC 12/09 Dextrose/Water 100 ML IV 12/09 1214 1211 Multivitamins 1 TAB DAILY 12/08 0900 AC 12/09 PO 0829 Nicotine 14 MG DAILY 12/08 09 AC 12/10 TOP 1046 Omeprazole 40 MG DAILY AC 12/09 0700 AC PO Phosphate 250 MG PC AND AT BEDTIME 12/08 1300 DC 12/09 PO 12/10 0901 0828 Potassium Chloride 10 MEQ Q1H 12/10 0745 DC 12/10 IV 12/10 0846 1051 Potassium Chloride 10 MEQ Q1H 12/10 0515 DC 12/10 IV 12/10 0616 0625 Potassium Phosphate 15 mMol ONE TIME ONE 12/10 0730 DC Dextrose/Water 250 ML IV 12/10 1134 Potassium Phosphate 15 mMol ONE ONE 12/10 0715 DC 12/10 Sodium Chloride 250 ML IV 12/10 1119 0809 Potassium Phosphate 15 mMol ONE ONE 12/09 0815 DC 12/09 Dextrose/Water 250 ML IV 12/09 1219 1037 Sodium Chloride 1,000 ML Q7H 12/08 1045 DC 12/09 IV 1355 Thiamine HCl 500 MG TID 12/08 1400 AC 12/10 Sodium Chloride 250 ML IV 12/11 1412 1043 Thiamine HCl 100 MG DAILY 12/08 09 AC 12/09 PO 0829 CXR Findings: FINDINGS: Stable cardiomediastinal silhouette. Groundglass reticular opacity noted in the left lower lung. Right lung is clear. No gross pleural effusion. Degenerative changes right shoulder. IMPRESSION: Hazy opacity left lower lung may represent early atypical pneumonia or pneumonitis in the appropriate clinical setting. Impression/Plan Impression/Problem List Impression: 57 year old male with past medical history significant for heavy smoking and alcohol use disorder, history of alcohol withdrawal seizure, delirium tremens requiring ICU admission in 2014, and chronic back pain on disability was brought in for fevers, chills, diarrhea, and weakness. Severe sepsis-likely of urological origin, although patient is unable to give history of dysuria given his current clinical condition and severe alcohol withdrawal Febrile to 101.7, sinus tachycardia up to 140s, leukocytosis with bandemia, lactic acidemia Blood cultures and urine cultures positive for GPCs, initially given Vancomycin Blood culture final coag negative staph, possibly contaminant Lactic acidemia, leukocytosis, and tachycardia improved HIDA scan findings consistent with chronic cholecystitis, no abdominal pain Vancomycin discontinued, remains on ceftriaxone Elevated Anion Gap Metabolic Acidosis: Likely secondary to severe sepsis, lactic acidemia, and starvation ketosis Methanol, ethylene glycol, isopropyl alcohol all negative Lactic acidemia, resolved after aggressive fluid resuscitation Bicarbonate and anion gap normalized Electrolyte Abnormalities Hypokalemia 2.8, repleted IV Hypomagnesemia 1.2-> 1.5, repleted IV Hypocalcemia 6.1, 7.8 when corrected for hypoalbuminemia Hypophosphatemia 1.7, repleting IV Repeat this afternoon after repletion and continue to trend daily Alcohol dependence and withdrawal: Liver synthetic dysfunction Elevated INR 1.39 and hypoalbuminemia 1.9 High dose thiamine treatment 500mg iv tid x 3 days Continue multivitamin, thiamine, and folate CIWA monitoring, 2-14 last 24 hours Patient is increasingly deliriuous, tremulous, and tachycardic History of alcohol withdrawal seizures Continue Ativan 2mg IV q4H plus prn per CIWA protocol, plan to taper tomorrow if stable Repeat echo unchanged from 2016 LVEF 45% with mild global hypokinesia Transaminitis AST>ALT consistent with alcoholic liver disease Aspiration pneumonitis: Patient is lethargic and tachypneic, coughed with PO intake and meds NPO currently chest x-ray showed hazy left lower lobe opacity, likely aspiration pneumonitis Currently on humidified oxygen mask Aspiration precautions, on ceftriaxone for sepsis of urological origin Check legionella and strep pneumo urinary antigens Swallow evaluation after clinical improved from withdrawal ABG wnl 7.41/43/83/24 Moderate to Severe Malnutrition Low prealbumin 4.9 Nutrition consulted, although currently NPO Chronic Anemia With elevated MCV 104 Hemoglobin decreased today from 9 -> 8.3, likely dilutional Vitamin B12 wnl Heme positive stools Consider gastroenterology consultation for EGD, variceal evaluation with h/o EtOH Continue B12/folate supplementation Thrombocytopenia: Appears to be chronic from old labs, likely due to EtOH Regular diet DVT ppx-heparin sc and ALPS Full Code Problem List: 1. Alcohol withdrawal 2. Malnutrition 3. Hypokalemia 4. Hypomagnesemia 5. Fever 6. Increased anion gap metabolic acidosis 7. Acalculous cholecystitis Pain Ratin Tomorrow's Labs & Rationales: cbc, icu Plan DVT/Prophylaxis: mechanical, pharmacological
--- NOTE | 2017-12-10 08:24 | RADIOLOGY REPORT ---
EXAMINATION: XR PORTABLE CHEST CLINICAL INFORMATION: CHF. Aspiration. COMPARISON: Multiple chest x-rays most recent prior dated 12/07/2017 TECHNIQUE: Portable frontal view of the chest was obtained. FINDINGS: Stable cardiomediastinal silhouette. Groundglass reticular opacity noted in the left lower lung. Right lung is clear. No gross pleural effusion. Degenerative changes right shoulder. IMPRESSION: Hazy opacity left lower lung may represent early atypical pneumonia or pneumonitis in the appropriate clinical setting.
[2017-12-10 17:59] LABS: ABSOLUTE BASOPHIL COUNT 0 /CUMM (0.0-0.2); ABSOLUTE EOSINOPHIL COUNT 0 /CUMM (0.0-0.7); ABSOLUTE GRANULOCYTE CT 6.8 /CUMM (1.4-6.5); ABSOLUTE LYMPH COUNT 1.3 /CUMM (1.2-3.4); ABSOLUTE MONOCYTE COUNT 0.7 /CUMM (0.10-0.60); BASOPHIL % 0 % (0.0-2.0); EOSINOPHIL % 0.1 % (0-5); GRANULOCYTE % 77.1 % (42.2-75.2); MEAN CORPUSCULAR HGB 34.7 PG (27.0-31.0); MEAN CORPUSCULAR HGB CONC 33.6 G/DL (33.0-37.0); MEAN CORPUSCULAR VOLUME 103.2 FL (80.0-94.0); PLATELET COUNT 106 /CUMM (130-400); RBC DISTRIBUTION WIDTH 14.3 % (11.5-14.5); RED BLOOD CELL CT 2.43 /CUMM (4.70-6.10); WHITE BLOOD CELL COUNT 8.9 /CUMM (4.8-10.8)
[2017-12-11] VITALS: BP 90/56
[2017-12-11 02:00] VITALS: BP 91/60
[2017-12-11 04:00] VITALS: BP 95/65
[2017-12-11 04:20] LABS: ABSOLUTE BASOPHIL COUNT 0 /CUMM (0.0-0.2); ABSOLUTE EOSINOPHIL COUNT 0 /CUMM (0.0-0.7); ABSOLUTE GRANULOCYTE CT 8.2 /CUMM (1.4-6.5); ABSOLUTE LYMPH COUNT 1.9 /CUMM (1.2-3.4); ABSOLUTE MONOCYTE COUNT 0.6 /CUMM (0.10-0.60); BASOPHIL % 0.2 % (0.0-2.0); EOSINOPHIL % 0.2 % (0-5); GRANULOCYTE % 75.6 % (42.2-75.2); HEMATOCRIT 25.8 % (42-52); MEAN CORPUSCULAR HGB CONC 33.5 G/DL (33.0-37.0); MEAN CORPUSCULAR VOLUME 104.4 FL (80.0-94.0); MEAN PLATELET VOLUME 10.2 FL (7.4-10.4); PLATELET COUNT 106 /CUMM (130-400); RBC DISTRIBUTION WIDTH 14.6 % (11.5-14.5); RED BLOOD CELL CT 2.48 /CUMM (4.70-6.10); WHITE BLOOD CELL COUNT 10.8 /CUMM (4.8-10.8)
[2017-12-11 06:00] VITALS: BP 83/54
--- NOTE | 2017-12-11 07:31 | PN- Resident CRCU ---
Subjective HPI/CRCU Issues: aspiration pneumonia severe sepsis severe alcohol withdrawal metabolic encephalopathy elevated anion gap metabolic acidosis from lactic acidemia hypokalemia hypocalcemia hypomagnesia hypophosphatemia anemia thrombocytopenia 24 Hour Events: No overnight events Ativan was held yesterday for somnolence Electrolytes aggressively repleted Febrile to 100.4 yesterday morning NPO with new left lower lobe infiltrate on chest x-ray concerning for aspiration pneumonia Antibiotics changed from ceftriaxone to Unasyn today Mental status improved today, AAOx3, following commands Objective Vital Signs & I&O Last 8 Hrs of Vitals and I&O: Temp 97.2, HR 97, RR 18, BP 83-95/54-65, RR 18, SpO2 97% on Fio2 0.28 Exam General Appearance: well developed/nourished, no apparent distress, comfortable, weak cough with thick secretions Respiratory: diminished breath sounds, wheezing improved, bibasilar rhonchi Cardiovascular: regular rate/rhythm, normal peripheral pulses Gastrointestinal: normal bowel sounds, soft, non-tender Extremities: normal inspection, normal capillary refill, normal range of motion, bilateral upper extremity swelling R>L Current Medications: Current Medications Sig/Christal Start time Last Medication Dose Route Stop Time Status Admin Albuterol Sulfate 3 ML BID 12/09 1028 AC 12/10 INH 1932 Ampicillin Sodium/ 3,000 MG Q6 12/11 1200 UNVr Sulbactam Sodium IV Sodium Chloride 100 ML Calcium Carbonate 1,250 MG BID 12/09 0900 AC PO Ceftriaxone Sodium 1,000 MG 2200 12/07 2200 DC 12/10 IV 2314 Dextrose/Sodium 1,000 ML Q10H 12/09 1615 AC 12/10 Chloride IV 2028 Folic Acid 1 MG DAILY 12/08 0900 AC 12/09 PO 0829 Heparin Sodium 5,000 UNIT Q8 12/08 1400 AC 12/11 (Porcine) SC 0619 Ipratropium [place] 2.5 ML BID 12/09 1028 AC 12/10 INH 0843 Lorazepam 2 MG Q12 12/10 2100 AC 12/10 IV 2033 Lorazepam 2 MG Q4 12/09 1000 DC 12/10 IV 0608 Lorazepam 0 Q1P PRN 12/07 2345 AC 12/09 IV 0528 Magnesium Oxide 400 MG DAILY 12/09 0900 AC 12/09 PO 0830 Magnesium Sulfate 1 GM Q2H 12/10 1900 DC 12/10 Dextrose/Water 100 ML IV 12/10 2259 2313 Magnesium Sulfate 1 GM ONCE ONE 12/10 0745 DC 12/10 Dextrose/Water 100 ML IV 12/10 1144 0807 Magnesium Sulfate 1 GM Q2H 12/10 0515 DC 12/10 Dextrose/Water 100 ML IV 12/10 0914 0850 Multivitamins 1 TAB DAILY 12/08 09 AC 12/09 PO 0829 Nicotine 14 MG DAILY 12/08 0900 AC 12/10 TOP 1046 Omeprazole 40 MG DAILY AC 12/09 0700 AC PO Phosphate 250 MG PC AND AT BEDTIME 12/08 1300 DC 12/09 PO 12/10 0901 0828 Potassium Chloride 10 MEQ Q1H 12/11 0745 AC IV 12/11 0846 Potassium Chloride 10 MEQ Q1H 12/10 1900 DC 12/10 IV 12/10 2001 205 Potassium Chloride 10 MEQ Q1H 12/10 0745 DC 12/10 IV 12/10 0846 1051 Potassium Phosphate 15 mMol ONE ONE 12/11 0745 AC Sodium Chloride 250 ML IV 12/11 1149 Potassium Phosphate 15 mMol ONE ONE 12/10 1900 DC 12/10 Sodium Chloride 250 ML IV 12/10 2304 2204 Potassium Phosphate 15 mMol ONE TIME ONE 12/10 0730 DC 12/10 Dextrose/Water 250 ML IV 12/10 1134 1412 Potassium Phosphate 15 mMol ONE ONE 12/10 0715 DC 12/10 Sodium Chloride 250 ML IV 12/10 1119 0809 Thiamine HCl 500 MG TID 12/08 1400 AC 12/10 Sodium Chloride 250 ML IV 12/11 1412 2153 Thiamine HCl 100 MG DAILY 12/08 0900 AC 12/09 PO 0829 Impression/Plan Impression/Problem List Impression: 57 year old male with past medical history significant for heavy smoking and alcohol use disorder, history of alcohol withdrawal seizure, delirium tremens requiring ICU admission in 2014, and chronic back pain on disability was brought in for fevers, chills, diarrhea, and weakness. Severe sepsis-with coag neg staph in urine and blood cultures, treated with ceftriaxone Febrile to 101.7, sinus tachycardia up to 140s, leukocytosis with bandemia, lactic acidemia Lactic acidemia, leukocytosis, and tachycardia improved after aggressive hydration Never required central line or pressors for blood pressure support HIDA scan findings consistent with chronic cholecystitis Patient developed fever yesterday and new left lower lobe infiltrate on chest x -ray Antibiotics changed to Unasyn for aspiration pneumonia NPO pending swallow evaluation today ABG wnl 7.41/43/83/24 Elevated Anion Gap Metabolic Acidosis: Likely secondary to severe sepsis, lactic acidemia, and starvation ketosis Methanol, ethylene glycol, isopropyl alcohol all negative Lactic acidemia, resolved after aggressive fluid resuscitation Bicarbonate and anion gap normalized Electrolyte Abnormalities Hypokalemia 2.8, repleted IV, 3.4 today Hypomagnesemia 1.2-> 1.5, repleted IV, now normal Hypocalcemia 6.3, 7.8 when corrected for hypoalbuminemia Hypophosphatemia 2.1 today, repleting IV Trend daily Metabolic encephalopathy in the setting of alcohol withdrawal: Liver synthetic dysfunction, INR 1.39 and hypoalbuminemia 1.9 Transaminitis AST>ALT consistent with alcoholic liver disease Continue high dose thiamine treatment 500mg iv tid x 3 days CIWA monitoring, 6-8 last 24 hours Ativan was held yesterday for sedation, today patient's mental status dramatically improved AAOx3 and following commands, Ativan reduced to 2mg Q12H + PRN CIWA Repeat echo unchanged from 2016 LVEF 45% with mild global hypokinesia Severe Protein calorie Malnutrition Low prealbumin 4.9 Nutrition consulted, although currently NPO pending swallow evaluation Chronic Anemia With elevated MCV 104 Hemoglobin decreased today from 9 -> 8.3, likely dilutional Vitamin B12 wnl Heme positive stools Consider gastroenterology consultation for EGD, variceal evaluation with h/o EtOH Continue B12/folate supplementation Thrombocytopenia: Appears to be chronic from old labs, likely due to EtOH NPO DVT ppx-heparin sc and ALPS Full Code Problem List: 1. Alcohol withdrawal 2. Hyponatremia 3. Thrombocytopenia 4. Malnutrition 5. Hypomagnesemia 6. Hypokalemia 7. Increased anion gap metabolic acidosis 8. Fever 9. Acalculous cholecystitis 10. Alcohol abuse Pain Ratin Tomorrow's Labs & Rationales: cbc, icu Plan DVT/Prophylaxis: mechanical, pharmacological 10. Alcohol abuse Pain Ratin Tomorrow's Labs & Rationales: cbc, icu Plan DVT/Prophylaxis: mechanical, pharmacological
[2017-12-11 08:00] VITALS: BP 94/50
--- NOTE | 2017-12-11 08:14 | PN- CRCU ---
Subjective HPI/Critical Care Issues: The patient is much more awake and alert today although he remains somnolent. The patient's Ativan dosing has been decreased and his CIWA scores are better controlled. He is oriented to place and year. The patient is afebrile. His respiratory status is stable, noting he is on 28% Ventimask with saturations in the high 90s-100%. The patient is not offering any complaints at the present time. Objective Current Medications: Current Medications Sig/Christal Start time Last Medication Dose Route Stop Time Status Admin Albuterol Sulfate 3 ML BID 12/09 1028 AC 12/10 INH 1932 Calcium Carbonate 1,250 MG BID 12/09 09 AC PO Ceftriaxone Sodium 1,000 MG 2200 12/07 2200 AC 12/10 IV 2314 Dextrose/Sodium 1,000 ML Q10H 12/09 1615 AC 12/10 Chloride IV 2028 Folic Acid 1 MG DAILY 12/08 0900 AC 12/09 PO 0829 Heparin Sodium 5,000 UNIT Q8 12/08 1400 AC 12/11 (Porcine) SC 0619 Ipratropium [place] 2.5 ML BID 12/09 1028 AC 12/10 INH 0843 Lorazepam 2 MG Q12 12/10 2100 AC 12/10 IV 2033 Lorazepam 2 MG Q4 12/09 1000 DC 12/10 IV 0608 Lorazepam 0 Q1P PRN 12/07 2345 AC 12/09 IV 0528 Magnesium Oxide 400 MG DAILY 12/09 0900 AC 12/09 PO 0830 Magnesium Sulfate 1 GM Q2H 12/10 1900 DC 12/10 Dextrose/Water 100 ML IV 12/10 2259 2313 Magnesium Sulfate 1 GM ONCE ONE 12/10 0745 DC 12/10 Dextrose/Water 100 ML IV 12/10 1144 0807 Magnesium Sulfate 1 GM Q2H 12/10 0515 DC 12/10 Dextrose/Water 100 ML IV 12/10 0914 0850 Multivitamins 1 TAB DAILY 12/08 09 AC 12/09 PO 0829 Nicotine 14 MG DAILY 12/08 899 AC 12/10 TOP 1046 Omeprazole 40 MG DAILY AC 12/09 0700 AC PO Phosphate 250 MG PC AND AT BEDTIME 12/08 1300 DC 12/09 PO 12/10 0901 0828 Potassium Chloride 10 MEQ Q1H 12/11 0745 AC IV 12/11 0846 Potassium Chloride 10 MEQ Q1H 12/10 1900 DC 12/10 IV 12/10 Potassium Chloride 10 MEQ Q1H 12/10 0745 DC / IV 12/10 0846 1051 Potassium Phosphate 15 mMol ONE ONE 12/11 0745 AC Sodium Chloride 250 ML IV 12/11 1149 Potassium Phosphate 15 mMol ONE ONE 12/10 1900 DC 12/10 Sodium Chloride 250 ML IV 12/10 2304 2204 Potassium Phosphate 15 mMol ONE TIME ONE 12/10 0730 DC 12/10 Dextrose/Water 250 ML IV 12/10 1134 1412 Potassium Phosphate 15 mMol ONE ONE 12/10 0715 DC 12/10 Sodium Chloride 250 ML IV 12/10 1119 0809 Thiamine HCl 500 MG TID 12/08 1400 AC 12/10 Sodium Chloride 250 ML IV 12/11 1412 2153 Thiamine HCl 100 MG DAILY 12/08 0900 AC 12/09 PO 0829 Vital Signs & I&O Last 24 Hrs of Vitals and I&O: Vital Signs Date Time Temp Pulse Resp B/P B/P Pulse O2 O2 Flow FiO2 Mean Ox Delivery Rate 12/11 0600 97.2 97 18 83/54 12/11 0400 97.2 104 20 95/65 12/11 0400 97 Venti Mask 28% 12/11 0200 86 20 91/60 12/11 0012 99 Aerosol 28% Mask 12/11 0000 97.0 92 28 90/56 12/11 0000 98 Venti Mask 28% 12/11 0000 97.0 92 28 90/56 98 Venti Mask 28% 12/10 2200 98.0 98 20 92/59 12/10 2000 98.0 116 24 93/60 12/11 1999 97 Venti Mask 28% 12/10 1934 97 Aerosol 28% Mask 12/10 1600 96 Venti Mask 28% 12/10 1600 98.0 110 24 114/70 96 Venti Mask 28% 12/10 1200 94 Venti Mask 28% 12/10 0845 100 Aerosol 28% Mask Intake & Output 12/11 1600 12/11 0800 12/11 0000 Intake Total 1467 1110 Output Total 380 550 Balance 1087 560 Intake, IV 1467 1110 Intake, Oral 0 0 Number 1 1 Bowel Movements Output, Urine 380 550 Physical Exam General Appearance: Confused, less tremulous, chronically ill-appearing, appears much older than stated age Respiratory: decreased breath sounds, wheezing, scattered crackles Cardiovascular: tachycardia, no murmur Gastrointestinal: normal bowel sounds, soft, non-tender Extremities: normal inspection, normal capillary refill, no LE edema, increased right upper extremity edema but improved from yesterday Results Last 24 Hrs of Lab Results: Laboratory Tests 12/11/17 0350: Anion Gap 5, Estimated GFR > 60, Glucose 127 H, Calcium 6.3 L, Phosphorus 2.1 L, Magnesium 2.0, Total Bilirubin 0.8, AST 42, ALT 35, Albumin 1.7 L, CBC w Diff NO MAN DIFF REQ, RBC 2.48 L, MCV 104.4 H, MCH 35.0 H, MCHC 33.5, RDW 14.6 H, MPV 10.2, Gran % 75.6 H, Lymphocytes % 18.0 L, Monocytes % 6.0, Eosinophils % 0.2, Basophils % 0.2, Absolute Granulocytes 8.2 H, Absolute Lymphocytes 1.9, Absolute Monocytes 0.6, Absolute Eosinophils 0, Absolute Basophils 0 12/10/17 1714: Anion Gap 6, Estimated GFR > 60, Glucose 149 H, Calcium 6.2 L, Phosphorus 2.6, Magnesium 1.7, Total Bilirubin 0.9, AST 49, ALT 35, Albumin 1.7 L, CBC w Diff NO MAN DIFF REQ, RBC 2.43 L, MCV 103.2 H, MCH 34.7 H, MCHC 33.6, RDW 14.3, MPV 10.0, Gran % 77.1 H, Lymphocytes % 14.9 L, Monocytes % 7.9, Eosinophils % 0.1, Basophils % 0, Absolute Granulocytes 6.8 H, Absolute Lymphocytes 1.3, Absolute Monocytes 0.7 H, Absolute Eosinophils 0, Absolute Basophils 0 12/10/17 1052: pH 7.41, pCO2 43, pO2 83, HCO3 27, ABG O2 Sat (Measured) 96.0, P-50 (Temp Corrected) N, Carboxyhemoglobin 0.1 L, O2 Concentration % 28%, O2 Delivery Method AM, Phlebotomy Draw Site LEFT BRACHIAL Diagnostic Data CXR Findings: Hazy opacity left lower lung may represent early atypical pneumonia or pneumonitis in the appropriate clinical setting. Impression/Plan Impression/Plan Impression/Plan: 1. Severe alcohol withdrawal, clinically improving. The patient's Ativan requirement has decreased. 2. Gram-positive cocci in urine culture suggestive of UTI. Coag negative staph in the blood. The patient's fever, and white blood cell count have improved on ceftriaxone. 3. Left lower lobe aspiration pneumonia. 4. Macrocytic aNemia, without evidence of bleeding. 5. Malnutrition. 6. Toxic metabolic encephalopathy. 7. Severe lactic acidosis secondary to starvation ketosis and alcohol consumption - improved. 8. Electrolyte abnormalities including hypomagnesemia, hypokalemia, and hypocalcemia. 9. Tobacco use disorder, 3 pack per day current smoker. 9. Acalculous cholecystitis -chronic on HIDA scan. 10. Increased right upper extremity edema, improving. 11. Chronic thrombocytopenia, likely secondary to chronic alcohol ingestion. Recommendations: * Continue with aggressive electrolyte repletion. * Check an ammonia level this morning. * Await swallowing evaluation plan for early this morning. * Continue CIWA protocol, avoid oversedation. * Can give oral Ativan if the patient passes a swallowing evaluation. * Guaiac all stools. Monitor for bleeding. * Change to Unasyn for UTI and treatment of pneumonia. * Continue multivitamin, thiamine and folate treatment. * Aspiration precautions. * Encourage nutritional intake as tolerated. * DVT prophylaxis at all times. * Monitor right upper extremity swelling. Will order an ultrasound if the swelling does not improve. * Out of bed to chair if able today. * Discussed plan of care with the housestaff. I asked them to contact me should the patient's condition change or deteriorate. * The patient's was updated at the bedside.
[2017-12-11 16:00] VITALS: BP 83/50
[2017-12-12] VITALS (8 sets, daily range): BP systolic 88–118; BP diastolic 56–71
[2017-12-12 04:24] LABS: ABSOLUTE BASOPHIL COUNT 0 /CUMM (0.0-0.2); ABSOLUTE EOSINOPHIL COUNT 0.1 /CUMM (0.0-0.7); ABSOLUTE GRANULOCYTE CT 4.8 /CUMM (1.4-6.5); ABSOLUTE LYMPH COUNT 1.9 /CUMM (1.2-3.4); ABSOLUTE MONOCYTE COUNT 0.8 /CUMM (0.10-0.60); BASOPHIL % 0.6 % (0.0-2.0); EOSINOPHIL % 1.1 % (0-5); GRANULOCYTE % 62.4 % (42.2-75.2); MEAN CORPUSCULAR HGB 35.1 PG (27.0-31.0); MEAN CORPUSCULAR HGB CONC 33.4 G/DL (33.0-37.0); MEAN CORPUSCULAR VOLUME 105.1 FL (80.0-94.0); MEAN PLATELET VOLUME 10.7 FL (7.4-10.4); PLATELET COUNT 109 /CUMM (130-400); RBC DISTRIBUTION WIDTH 14.5 % (11.5-14.5); RED BLOOD CELL CT 2.28 /CUMM (4.70-6.10); WHITE BLOOD CELL COUNT 7.7 /CUMM (4.8-10.8)
--- NOTE | 2017-12-12 07:38 | PN- CRCU ---
Subjective HPI/Critical Care Issues: The patient is much more awake and alert. He is following commands and moving all extremities independently. He complains of upper extremity swelling but denies any discomfort. His respiratory status is stable noting he is 100% on 2 L nasal cannula. The patient remains afebrile. His urine output has improved with IV fluid administration. The patient has had multiple bowel movements over the last shift. Objective Current Medications: Current Medications Sig/Christal Start time Last Medication Dose Route Stop Time Status Admin Albumin Human 25 GM ONCE ONE 12/11 1615 DC 12/11 IV 12/11 1616 1753 Albumin Human 25 GM ONCE ONE 12/11 1145 DC 12/11 IV 12/11 1146 1250 Albuterol Sulfate 3 ML BID 12/09 1028 AC 12/11 INH 0908 Ampicillin Sodium/ 3,000 MG Q6 12/11 1200 AC 12/12 Sulbactam Sodium IV 0501 Sodium Chloride 100 ML Calcium Carbonate 1,250 MG BID 12/09 0900 AC 12/11 PO 2039 Ceftriaxone Sodium 1,000 MG 2200 12/07 2200 DC 12/10 IV 2314 Dextrose/Sodium 1,000 ML Q10H 12/09 1615 DC 12/11 Chloride IV 1250 Folic Acid 1 MG DAILY 12/08 0900 AC 12/09 PO 0829 Heparin Sodium 5,000 UNIT Q8 12/08 1400 AC 12/12 (Porcine) SC 0501 Ipratropium [place] 2.5 ML BID 12/09 1028 AC 12/11 INH 0908 Lactulose 10 GM BID 12/11 2100 AC PO Lorazepam 2 MG Q12 12/10 2100 AC 12/10 IV 2033 Lorazepam 0 Q1P PRN 12/07 2345 AC 12/09 IV 0528 Magnesium Oxide 400 MG DAILY 12/09 0900 AC 12/09 PO 0830 Multivitamins 1 TAB DAILY 12/08 09 AC 12/09 PO 0829 Nicotine 14 MG DAILY 12/08 09 AC 12/11 TOP 0852 Nystatin 1 MOY TID 12/11 2349 AC 12/12 TOP 0054 Omeprazole 40 MG DAILY AC 12/09 0700 AC 12/12 PO 0503 Potassium Chloride 40 MEQ Q2 12/12 0600 AC 12/12 PO 12/12 0801 0502 Potassium Chloride 10 MEQ Q1H 12/11 0745 DC 12/11 IV 12/11 0846 1041 Potassium Phosphate 15 mMol ONE ONE 12/12 0900 AC Sodium Chloride 250 ML IV 12/12 1304 Potassium Phosphate 15 mMol ONE ONE 12/11 0745 DC 12/11 Sodium Chloride 250 ML IV 12/11 1149 0853 Sodium Chloride 1,000 ML BOLUS ONE 12/11 1645 DC 12/11 IV 12/11 1844 1657 Sodium Chloride 1,000 ML Q6H 12/11 1645 AC 12/12 IV 0200 Thiamine HCl 500 MG TID 12/08 1400 DC 12/11 Sodium Chloride 250 ML IV 12/11 1412 1657 Thiamine HCl 100 MG DAILY 12/08 0900 AC 12/09 PO 0829 Vital Signs & I&O Last 24 Hrs of Vitals and I&O: Vital Signs Date Time Temp Pulse Resp B/P B/P Pulse O2 O2 Flow FiO2 Mean Ox Delivery Rate 12/12 0400 100 Nasal 2.0L Cannula 12/12 0000 99 Nasal 2.0L Cannula 12/12 0000 97.3 93 11 88/64 99 Nasal 2.0L Cannula 12/11 2000 99 Nasal 2.0L Cannula 12/11 1600 95 Non 2.0L ReBreather 12/11 1600 98.4 106 16 83/50 95 Nasal 2.0L Cannula 12/11 1200 95 Nasal 2.0L Cannula 12/11 0908 98 Nasal 2.0L Cannula 12/11 0800 95 Nasal 2.0L Cannula 12/11 0800 98.0 104 20 94/50 95 Nasal 2.0L Cannula Intake & Output 12/12 0800 12/12 0000 12/11 1600 Intake Total 1179 2700 1400 Output Total 625 595 180 Balance 554 2105 1220 Intake, IV 1059 2100 1000 Intake, Oral 120 600 400 Number 2 2 Bowel Movements Output, Urine 625 595 180 Physical Exam General Appearance: Confused, tremulous, chronically ill-appearing, appears much older than stated age Respiratory: decreased breath sounds, wheezing, scattered crackles Cardiovascular: tachycardia, no murmur Gastrointestinal: normal bowel sounds, soft, non-tender Extremities: normal inspection, normal capillary refill, no LE edema, increased right upper extremity edema Results Last 24 Hrs of Lab Results: Laboratory Tests 12/12/17 0407: Anion Gap 8, Estimated GFR > 60, Glucose 92, Calcium 6.6 L, Phosphorus 2.0 L, Magnesium 1.6, Total Bilirubin 1.2, AST 44, ALT 36, Albumin 2.1 L, CBC w Diff NO MAN DIFF REQ, RBC 2.28 L, MCV 105.1 H, MCH 35.1 H, MCHC 33.4, RDW 14.5, MPV 10.7 H, Gran % 62.4, Lymphocytes % 25.2, Monocytes % 10.7 H, Eosinophils % 1.1, Basophils % 0.6, Absolute Granulocytes 4.8, Absolute Lymphocytes 1.9, Absolute Monocytes 0.8 H, Absolute Eosinophils 0.1, Absolute Basophils 0 12/11/17 0835: Ammonia 43 H Last 24 Hrs of Micro Results: Repeat cultures are negative. Impression/Plan Impression/Plan Impression/Plan: 1. Severe alcohol withdrawal with delerium tremens. 2. Gram-positive cocci in urine culture suggestive of UTI. Coag negative staph in the blood. The patient's fever, and white blood cell count have improved on ceftriaxone. 3. Progressive anemia, without evidence of bleeding. 4. Malnutrition. 5. Toxic metabolic encephalopathy - improved. 6. Severe lactic acidosis secondary to starvation ketosis and alcohol consumption. 7. Increased bilateral upper extremity edema. 8. Tobacco use disorder, noting the patient smokes 3 packs per day. 9. Acalculous cholecystitis -chronic on HIDA scan. Recommendations: * Check stool for C. difficile. * Check bilateral upper extremity Dopplers. * Decrease IV fluids to 100 mL/h. * Continue Hoffman catheter, monitor urine output. * Continue with electrolyte repletion including potassium, magnesium and phosphorus. * Continue CIWA protocol, avoid oversedation. * Guaiac all stools. Monitor for bleeding. * Continue multivitamin, thiamine and folate treatment. * Encourage nutritional intake as tolerated. * DVT prophylaxis at all times. * Discussed plan of care with the housestaff. I asked them to contact me should the patient's condition change or deteriorate. * The patient's was updated at the bedside.
--- NOTE | 2017-12-12 11:28 | PN- Resident CRCU ---
Subjective HPI/CRCU Issues: 57 y/o M with PMH significant for heavy smoking and alcohol use disorder, history of alcohol withdrawal seizure, delirium tremens requiring ICU admission in 2014, and chronic back pain on disability who was brought in for fevers, episodes of unresponsiveness, chills, diarrhea, and weakness. 24 Hour Events: Pt was seen and examined at bedside alongside his . Pt states feeling much better, though UE nontender swelling B/L is noted. No other events reported. Objective Vital Signs & I&O Last 8 Hrs of Vitals and I&O: Vital Signs Date Time Temp Pulse Resp B/P B/P Pulse O2 O2 Flow FiO2 Mean Ox Delivery Rate 12/12 0800 98.2 104 14 108/60 12/12 0800 97 Nasal 2.0L Cannula 12/12 0800 98.2 104 14 108/60 99 Nasal 2.0L Cannula 12/12 0400 100 Nasal 2.0L Cannula 12/12 0000 99 Nasal 2.0L Cannula 12/12 0000 97.3 93 11 88/64 99 Nasal 2.0L Cannula 12/11 2000 99 Nasal 2.0L Cannula 12/11 1600 95 Non 2.0L ReBreather 12/11 1600 98.4 106 16 83/50 95 Nasal 2.0L Cannula 12/11 1200 95 Nasal 2.0L Cannula Intake & Output 12/12 1600 12/12 0800 12/12 0000 Intake Total 1179 2700 Output Total 625 595 Balance 554 2105 Intake, IV 1059 2100 Intake, Oral 120 600 Number 2 2 Bowel Movements Output, Urine 625 595 Laboratory Tests 12/12 0407 Chemistry Sodium (137 - 145 mmol/L) 136 L Potassium (3.5 - 5.1 mmol/L) 3.4 L Chloride (98 - 107 mmol/L) 104 Carbon Dioxide (22 - 30 mmol/L) 24 Anion Gap (5 - 16) 8 BUN (9 - 20 mg/dL) < 2 L Creatinine (0.7 - 1.2 mg/dL) 0.4 L Estimated GFR (>60 ml/min) > 60 Glucose (65 - 99 mg/dL) 92 Calcium (8.4 - 10.2 mg/dL) 6.6 L Phosphorus (2.5 - 4.5 mg/dL) 2.0 L Magnesium (1.6 - 2.3 mg/dL) 1.6 Total Bilirubin (0.2 - 1.3 mg/dL) 1.2 AST (17 - 59 U/L) 44 ALT (21 - 72 U/L) 36 Albumin (3.5 - 5.0 g/dL) 2.1 L Hematology CBC w Diff NO MAN DIFF REQ WBC (4.8 - 10.8 /CUMM) 7.7 RBC (4.70 - 6.10 /CUMM) 2.28 L Hgb (14.0 - 18.0 G/DL) 8.0 L Hct (42 - 52 %) 24.0 L MCV (80.0 - 94.0 FL) 105.1 H MCH (27.0 - 31.0 PG) 35.1 H MCHC (33.0 - 37.0 G/DL) 33.4 RDW (11.5 - 14.5 %) 14.5 Plt Count (130 - 400 /CUMM) 109 L MPV (7.4 - 10.4 FL) 10.7 H Gran % (42.2 - 75.2 %) 62.4 Lymphocytes % (20.5 - 51.1 %) 25.2 Monocytes % (1.7 - 9.3 %) 10.7 H Eosinophils % (0 - 5 %) 1.1 Basophils % (0.0 - 2.0 %) 0.6 Absolute Granulocytes (1.4 - 6.5 /CUMM) 4.8 Absolute Lymphocytes (1.2 - 3.4 /CUMM) 1.9 Absolute Monocytes (0.10 - 0.60 /CUMM) 0.8 H Absolute Eosinophils (0.0 - 0.7 /CUMM) 0.1 Absolute Basophils (0.0 - 0.2 /CUMM) 0 Exam General Appearance: no apparent distress, alert, awake Head: atraumatic, normal appearance Neck: normal inspection, supple Respiratory: chest non-tender, no respiratory distress, decreased breath sounds, scattered rhonchi and crackles B/L Cardiovascular: bradycardia, no edema Gastrointestinal: normal bowel sounds, soft, non-tender, no organomegaly Cranial Nerves: normal hearing, normal speech Skin: intact, normal color Current Medications: Current Medications Sig/Christal Start time Last Medication Dose Route Stop Time Status Admin Albumin Human 25 GM ONCE ONE 12/11 1615 DC 12/11 IV 12/12 1615 1753 Albumin Human 25 GM ONCE ONE 12/11 1145 DC 12/11 IV 12/11 1146 1250 Albuterol Sulfate 3 ML BID 12/09 1028 AC 12/11 INH 0908 Ampicillin Sodium/ 3,000 MG Q6 12/11 1200 AC 12/12 Sulbactam Sodium IV 0501 Sodium Chloride 100 ML Calcium Carbonate 1,250 MG BID 12/09 0900 AC 12/12 PO 0758 Dextrose/Sodium 1,000 ML Q10H 12/09 1615 DC 12/11 Chloride IV 1250 Folic Acid 1 MG DAILY 12/08 0900 AC 12/12 PO 0758 Heparin Sodium 5,000 UNIT Q8 12/08 1400 AC 12/12 (Porcine) SC 0501 Ipratropium [place] 2.5 ML BID 12/09 1028 AC 12/11 INH 0908 Lactulose 10 GM BID 12/11 2100 AC PO Lorazepam 2 MG Q12 12/10 2100 AC 12/10 IV 2033 Lorazepam 0 Q1P PRN 12/07 2345 AC 12/09 IV 0528 Magnesium Oxide 400 MG BID 12/12 2100 AC PO Magnesium Oxide 400 MG DAILY 12/09 0900 DC 12/12 PO 0758 Multivitamins 1 TAB DAILY 12/08 0900 AC 12/12 PO 0758 Nicotine 14 MG DAILY 12/08 0900 AC 12/12 TOP 0758 Nystatin 1 MOY TID 12/11 2349 AC 12/12 TOP 0805 Omeprazole 40 MG DAILY AC 12/09 0700 AC 12/12 PO 0503 Potassium Chloride 40 MEQ Q2 12/12 0600 DC 12/12 PO 12/12 0801 0810 Potassium Phosphate 15 mMol ONE ONE 12/12 0900 AC 12/12 Sodium Chloride 250 ML IV 12/12 1304 0809 Potassium Phosphate 15 mMol ONE ONE 12/11 0745 DC 12/11 Sodium Chloride 250 ML IV 12/11 1149 0853 Sodium Chloride 1,000 ML BOLUS ONE 12/11 1645 DC 12/11 IV 12/11 1844 1657 Sodium Chloride 1,000 ML Q6H 12/11 1645 AC 12/12 IV 0200 Thiamine HCl 500 MG TID 12/08 1400 DC 12/11 Sodium Chloride 250 ML IV 12/11 1412 1657 Thiamine HCl 100 MG DAILY 12/08 0900 AC 12/12 PO 0758 Impression/Plan Impression/Problem List Impression: 57 year old male with past medical history significant for heavy smoking and alcohol use disorder, history of alcohol withdrawal seizure, delirium tremens requiring ICU admission in 2013, and chronic back pain on disability was brought in for fevers, chills, diarrhea, and weakness. He was febrile and tachycardic on admission; admitted to the ICU for management of sepsis and high anion-gap metabolic acidosis. ASSESSMENT AND PLAN Sepsis of likely urological origin + Aspiration PNA - pt had coag neg staph on urine, and blood cultures. On admission pt had leukocytosis with 10% band, tachycardic with a lactic acid of 11.3. He was started on ceftriaxone and aggresive fluid therapy with improvement in WBC and normalization of lactic acid. -On 12/10 pt had 100.2 F, Aspiration PNA suspected, CXR on 12/10 showed new left lower lobe infiltrate, Pt was started on unasyn 3g q6 (day #2). -Pt with U/E swelling B/L - UE doppler ordered Electrolyte Abnormalities -Hypokalemia 3.4, given K Phos and K Chlor PO times 2 -Hypomagnesemia 2.0-> 1.6, Mag Ox changed to BID -Hypocalcemia 6.6, 8.1 when corrected for hypoalbuminemia -Hypophosphatemia 2.0 today, replacing with phos powder -Continue trending and replacing Elevated AG Metabolic Acidosis with lactic acidemia, resolved. Probably multifactorial - sepsis, starvation ketosis -W/u for other alcohols negative: methanol, ethylene glycol and isopropyl alcohol -Lactic acidemia resolved after fluid therapy, last @1.4 -Fluids decreaased to 100 cc/hr Metabolic encephalopathy, likely related to alcohol withdrawal: -Pt mental status much improved, AAOX3. Talkative and cooperative. -Pt with decreased INR and hypoalbuminemia with AST>ALT -Pt completed high dose thiamine (500 mg for 3 days) -Continue CIWA monitoring, 4-6 last 24 hours Severe Protein calorie Malnutrition -Low prealbumin 4.9 -Nutrition consulted -Swallow eval passed: regular diet. chopped/thin Chronic Anemia Megaloblastic Anemia with high MCV, pt on both B12 and folate supplementation Hemoglobin decreased today from 8.7-8.0 Heme positive stools - latest guaiacs have been negative FULL CODE DVT ppx-heparin sc and ALPS Regular diet: chopped/thin Problem List: 1. Alcohol withdrawal 2. Malnutrition 3. Hypomagnesemia 4. Hypokalemia Pain Ratin Tomorrow's Labs & Rationales: UE doppler CBC icu lab bundle Plan DVT/Prophylaxis: mechanical, pharmacological
--- NOTE | 2017-12-12 14:44 | ULTRASOUND REPORT ---
EXAMINATION: US TRIPLEX OF UPPER EXTREMITIES, BILATERAL CLINICAL INFORMATION: Bilateral upper extremity swelling. COMPARISON: None TECHNIQUE: Color-flow triplex imaging with spectral analysis and compression Doppler were performed on the upper extremities. FINDINGS: Suboptimal examination due to portable exam in the ICU with the patient sitting up in a chair and could not be moved into bed for the examination. Right upper extremity appears normal with no evidence of DVT in the right internal jugular vein, visible segment of subclavian vein, axillary vein, or brachial veins. No clot seen in the cephalic or basilic veins. The left upper extremity is positive for superficial nonocclusive thrombus in the lower cephalic vein. The basilic vein appears patent. The left internal jugular vein, visible segment of subclavian vein, axillary vein, and brachial veins appear free of thrombus. IMPRESSION: Positive for superficial nonocclusive thrombus in the left lower cephalic vein. Negative for DVT bilateral upper extremities.
[2017-12-13 03:29] LABS: ABSOLUTE BASOPHIL COUNT 0 /CUMM (0.0-0.2); ABSOLUTE EOSINOPHIL COUNT 0.1 /CUMM (0.0-0.7); ABSOLUTE GRANULOCYTE CT 3.8 /CUMM (1.4-6.5); ABSOLUTE LYMPH COUNT 2.3 /CUMM (1.2-3.4); ABSOLUTE MONOCYTE COUNT 0.9 /CUMM (0.10-0.60); BASOPHIL % 0.5 % (0.0-2.0); EOSINOPHIL % 1.5 % (0-5); GRANULOCYTE % 53.1 % (42.2-75.2); HEMATOCRIT 21.7 % (42-52); MEAN CORPUSCULAR HGB 34.4 PG (27.0-31.0); MEAN CORPUSCULAR HGB CONC 33.2 G/DL (33.0-37.0); MEAN CORPUSCULAR VOLUME 103.6 FL (80.0-94.0); MEAN PLATELET VOLUME 10.5 FL (7.4-10.4); PLATELET COUNT 142 /CUMM (130-400); RBC DISTRIBUTION WIDTH 14.3 % (11.5-14.5); WHITE BLOOD CELL COUNT 7.1 /CUMM (4.8-10.8)
[2017-12-13 08:00] VITALS: BP 126/78
--- NOTE | 2017-12-13 08:05 | PN- Resident CRCU ---
Subjective HPI/CRCU Issues: aspiration pneumonia severe sepsis severe alcohol withdrawal metabolic encephalopathy elevated anion gap metabolic acidosis from lactic acidemia hypokalemia hypocalcemia hypomagnesia hypophosphatemia anemia thrombocytopenia 24 Hour Events: Heart rate remains elevated, blood pressure and urine output are improved Mental status is significantly improved Patient is having several loose bowel movements and lactulose was stopped Electrolytes are being repleted Objective Vital Signs & I&O Last 8 Hrs of Vitals and I&O: Temp 99.0 HR 104, RR 18, BP 126/78, SpO2 97% on room air Exam General Appearance: well developed/nourished, no apparent distress, alert, awake , comfortable Cardiovascular: regular rate/rhythm, normal peripheral pulses Gastrointestinal: normal bowel sounds, soft, non-tender Extremities: normal inspection, normal capillary refill, normal range of motion, bilateral upper extremity swelling R>L Current Medications: Current Medications Sig/Christal Start time Last Medication Dose Route Stop Time Status Admin Albuterol Sulfate 3 ML Q4P PRN 12/12 2200 AC INH Albuterol Sulfate 3 ML BID 12/09 1028 DC 12/12 INH 2142 Ampicillin Sodium/ 3,000 MG Q6 12/11 1200 AC 12/13 Sulbactam Sodium IV 0507 Sodium Chloride 100 ML Calcium Carbonate 1,250 MG BID 12/09 0900 AC 12/13 PO 0808 Folic Acid 1 MG DAILY 12/08 0900 AC 12/13 PO 0808 Heparin Sodium 5,000 UNIT Q8 12/08 1400 AC 12/13 (Porcine) SC 0509 Ipratropium [place] 2.5 ML BID 12/09 1028 AC 12/12 INH 2141 Lactulose 10 GM BID 12/11 2100 DC PO Lorazepam 1 MG BID 12/13 0930 AC PO Lorazepam 2 MG Q12 12/10 2100 DC 12/10 IV 2033 Lorazepam 0 Q1P PRN 12/07 2345 AC 12/09 IV 0528 Magnesium Oxide 400 MG BID 12/12 2100 AC 12/13 PO 0808 Magnesium Oxide 400 MG DAILY 12/09 0900 DC 12/12 PO 0758 Magnesium Sulfate 1 GM ONCE ONE 12/13 0845 CAN Dextrose/Water 100 ML IV 12/13 1244 Magnesium Sulfate 1 GM ONCE ONE 12/13 0600 DC 12/13 Dextrose/Water 100 ML IV 12/13 0659 0547 Magnesium Sulfate 1 GM ONCE ONE 12/13 0500 DC 12/13 Dextrose/Water 100 ML IV 12/13 0559 0503 Magnesium Sulfate 1 GM ONCE ONE 12/13 0445 CAN Dextrose/Water 100 ML IV 12/13 0844 Multivitamins 1 TAB DAILY 12/08 09 AC 12/13 PO 0808 Nicotine 14 MG DAILY 12/08 0900 AC 12/13 TOP 0808 Nystatin 1 MOY TID 12/11 2349 AC 12/13 TOP 0808 Omeprazole 40 MG DAILY AC 12/09 0700 AC 12/13 PO 0509 Phosphate 250 MG PC AND AT BEDTIME 12/13 1300 UNVr PO Potassium Chloride 40 MEQ ONCE ONE 12/13 0445 DC 12/13 PO 12/13 0446 0509 Potassium Phosphate 15 mMol ONE ONE 12/13 0800 AC 12/13 Sodium Chloride 250 ML IV 12/13 1204 0806 Potassium Phosphate 15 mMol ONE ONE 12/12 0900 DC 12/12 Sodium Chloride 250 ML IV 12/12 1304 0809 Sodium Chloride 1,000 ML Q6H 12/11 1645 AC 12/13 IV 0242 Thiamine HCl 100 MG DAILY 12/08 09 AC 12/13 PO 0808 US Findings: IMPRESSION: Positive for superficial nonocclusive thrombus in the left lower cephalic vein. Impression/Plan Impression/Problem List Impression: 57 year old male with past medical history significant for heavy smoking and alcohol use disorder, history of alcohol withdrawal seizure, delirium tremens requiring ICU admission in 2013, and chronic back pain on disability was brought in for fevers, chills, diarrhea, and weakness. Severe sepsis-with coag neg staph in urine and blood cultures, treated with ceftriaxone Febrile to 101.7, sinus tachycardia up to 140s, leukocytosis with bandemia, lactic acidemia Lactic acidemia, leukocytosis, and tachycardia improved after aggressive hydration Never required central line or pressors for blood pressure support HIDA scan findings consistent with chronic cholecystitis Patient developed fever and new left lower lobe infiltrate on chest x-ray Currently on 5 day course of Unasyn for aspiration pneumonia No longer requiring supplemental oxygen Elevated Anion Gap Metabolic Acidosis: Likely secondary to severe sepsis, lactic acidemia, and starvation ketosis Methanol, ethylene glycol, isopropyl alcohol all negative Lactic acidemia, resolved after aggressive fluid resuscitation Bicarbonate and anion gap normalized Electrolyte Abnormalities Hypokalemia resolved with repletion Hypomagnesemia 1.3 today, repleted PO and IV Hypocalcemia 6.8, 8 when corrected for hypoalbuminemia Hypophosphatemia 1.7 today, repleting IV and PO Trend daily Metabolic encephalopathy in the setting of alcohol withdrawal: Liver synthetic dysfunction, INR 1.39 and hypoalbuminemia 1.9 Transaminitis AST>ALT consistent with alcoholic liver disease Completed high dose thiamine treatment 500mg iv tid x 3 days CIWA monitoring, 6-8 last 24 hours Ativan reduced to 1mg po bid + CIWA, 1-4 last 24 hours Serum ammonia was elevated, treated with lactulose, stopped for loose stool Mental status now improved and back to baseline Repeat echo unchanged from 2016 LVEF 45% with mild global hypokinesia Severe Protein calorie Malnutrition Low prealbumin 4.9 Passed swallow evaluation, now eating, meal supplementation with Ensure Chronic Anemia With elevated MCV 104 Hemoglobin decreased today, repeat CBC, may need transfusion if lower, given heme + stool Vitamin B12 wnl, continue supplementation Consider gastroenterology consultation for EGD, variceal evaluation with h/o EtOH Thrombocytopenia: Appears to be chronic from old labs, likely due to EtOH Regular diet with Ensure supplementation DVT ppx-heparin sc and ALPS Full Code Problem List: 1. Alcohol withdrawal 2. Hyponatremia 3. Thrombocytopenia 4. Malnutrition 5. Hypokalemia 6. Hypomagnesemia 7. Increased anion gap metabolic acidosis 8. Acalculous cholecystitis 9. Aspiration pneumonia 10. Severe sepsis Pain Ratin Tomorrow's Labs & Rationales: cbc, icu Plan DVT/Prophylaxis: mechanical, pharmacological Plan DVT/Prophylaxis: mechanical, pharmacological
--- NOTE | 2017-12-13 09:16 | PN- CRCU ---
Subjective HPI/Critical Care Issues: The patient is awake and alert. He reports feeling significantly improved overall. He denies any increased shortness of breath, chest pain, abdominal pain or any other associated issues. He continues to have upper extremity edema. He continues to have liquid stools. Lactulose has been held. Objective Current Medications: Current Medications Sig/Christal Start time Last Medication Dose Route Stop Time Status Admin Albuterol Sulfate 3 ML Q4P PRN 12/12 2200 AC INH Albuterol Sulfate 3 ML BID 12/09 1028 DC 12/12 INH 2142 Ampicillin Sodium/ 3,000 MG Q6 12/11 1200 AC 12/13 Sulbactam Sodium IV 0507 Sodium Chloride 100 ML Calcium Carbonate 1,250 MG BID 12/09 0900 AC 12/13 PO 0808 Folic Acid 1 MG DAILY 12/08 0900 AC 12/13 PO 0808 Heparin Sodium 5,000 UNIT Q8 12/08 1400 AC 12/13 (Porcine) SC 0509 Ipratropium [place] 2.5 ML BID 12/09 1028 AC 12/12 INH 2141 Lactulose 10 GM BID 12/11 2100 AC PO Lorazepam 2 MG Q12 12/10 2100 AC 12/10 IV 2033 Lorazepam 0 Q1P PRN 12/07 2345 AC 12/09 IV 0528 Magnesium Oxide 400 MG BID 12/12 2100 AC 12/13 PO 0808 Magnesium Oxide 400 MG DAILY 12/09 0900 DC 12/12 PO 0758 Magnesium Sulfate 1 GM ONCE ONE 12/13 0845 CAN Dextrose/Water 100 ML IV 12/13 1244 Magnesium Sulfate 1 GM ONCE ONE 12/13 0600 DC 12/13 Dextrose/Water 100 ML IV 12/13 0659 0547 Magnesium Sulfate 1 GM ONCE ONE 12/13 0500 DC 12/13 Dextrose/Water 100 ML IV 12/13 0559 0503 Magnesium Sulfate 1 GM ONCE ONE 12/13 0445 CAN Dextrose/Water 100 ML IV 12/13 0844 Multivitamins 1 TAB DAILY 12/08 09 AC 12/13 PO 0808 Nicotine 14 MG DAILY 12/08 0900 AC 12/13 TOP 0808 Nystatin 1 MOY TID 12/11 2349 AC 12/13 TOP 0808 Omeprazole 40 MG DAILY AC 12/09 0700 AC 12/13 PO 0509 Potassium Chloride 40 MEQ ONCE ONE 12/13 0445 DC 12/13 PO 12/13 0446 0509 Potassium Phosphate 15 mMol ONE ONE 12/13 0800 AC 12/13 Sodium Chloride 250 ML IV 12/13 1204 0806 Potassium Phosphate 15 mMol ONE ONE 12/12 0900 DC 12/12 Sodium Chloride 250 ML IV 12/12 1304 0809 Sodium Chloride 1,000 ML Q6H 12/11 1645 AC 12/13 IV 0242 Thiamine HCl 100 MG DAILY 12/08 0900 AC 12/13 PO 0808 Vital Signs & I&O Last 24 Hrs of Vitals and I&O: Vital Signs Date Time Temp Pulse Resp B/P B/P Pulse O2 O2 Flow FiO2 Mean Ox Delivery Rate 12/13 08 99.0 104 18 126/78 12/13 0800 97 Room Air Room Air 12/13 0800 99.0 104 18 126/78 97 Room Air Room Air 12/13 0400 95 Room Air 12/13 0000 95 Room Air 12/12 2354 99.4 106 17 116/70 95 Room Air 12/12 2142 94 Room Air Room Air 12/12 2000 95 Room Air 12/12 1800 99.0 93 16 100/56 12/12 1800 99.0 93 16 100/56 99 Room Air Room Air 12/12 1600 99.0 90 16 109/68 14 1600 98 Nasal 2.0L Cannula 12/12 1400 97.8 104 20 110/70 0714 1200 97.7 106 18 110/68 14 1200 96 Nasal 2.0L Cannula 12/12 1000 98.0 108 20 118/71 Intake & Output 12/13 1600 /15 0800 12/13 0000 Intake Total 1286 1260 Output Total 900 850 Balance 386 410 Intake, IV 926 900 Intake, Oral 360 360 Number 2 1 Bowel Movements Output, Urine 900 850 Physical Exam General Appearance: Awake, alert and comfortable Respiratory: decreased breath sounds, faint wheezing Cardiovascular: tachycardia, no murmur Gastrointestinal: normal bowel sounds, soft, non-tender Extremities: normal inspection, normal capillary refill, no LE edema, increased right upper extremity edema Results Last 24 Hrs of Lab Results: Laboratory Tests 12/13/17 0311: Anion Gap 7, Estimated GFR > 60, Glucose 104 H, Calcium 6.8 L, Phosphorus 1.7 L, Magnesium 1.3 L, Total Bilirubin 1.3, AST 48, ALT 35, Albumin 1.9 L, CBC w Diff NO MAN DIFF REQ, RBC 2.10 L, MCV 103.6 H, MCH 34.4 H, MCHC 33.2, RDW 14.3, MPV 10.5 H, Gran % 53.1, Lymphocytes % 32.9, Monocytes % 12.0 H, Eosinophils % 1.5, Basophils % 0.5, Absolute Granulocytes 3.8, Absolute Lymphocytes 2.3, Absolute Monocytes 0.9 H, Absolute Eosinophils 0.1, Absolute Basophils 0 Diagnostic Data US Findings: Positive for superficial nonocclusive thrombus in the left lower cephalic vein. Negative for DVT bilateral upper extremities. Impression/Plan Impression/Plan Impression/Plan: 1. Severe alcohol withdrawal with delerium tremens - improved. 2. Gram-positive cocci in urine culture suggestive of UTI. Coag negative staph in the blood. The patient's fever, and white blood cell count have improved on ceftriaxone. 3. Progressive anemia, without evidence of bleeding. 4. Malnutrition. 5. Toxic metabolic encephalopathy - improved. 6. Severe lactic acidosis secondary to starvation ketosis and alcohol consumption. 7. Increased bilateral upper extremity edema. 8. Tobacco use disorder, noting the patient smokes 3 packs per day. 9. Acalculous cholecystitis -chronic on HIDA scan. 10. Superficial nonocclusive thrombus in the left lower cephalic vein. Recommendations: * Continue with aggressive electrolyte repletion. * Continue to encourage oral intake. * Multivitamin, thiamine and folate to continue. * Monitor for any further evidence of alcohol withdrawal. * Guaiac all stools. * Resend stool for C. difficile today. * Monitor for bleeding. * Check a repeat CBC later today to determine if the patient will require transfusion. * Complete 5 days of antibiotic therapy - on IV Unasyn * Monitor off IV fluids. * Discontinue Hoffman catheter. * DVT prophylaxis at all times. * Bowel regimen as needed. * Out of bed to chair. * Downgrade out of ICU today.
[2017-12-13 10:08] LABS: ABSOLUTE BASOPHIL COUNT 0 /CUMM (0.0-0.2); ABSOLUTE EOSINOPHIL COUNT 0.1 /CUMM (0.0-0.7); ABSOLUTE GRANULOCYTE CT 4.1 /CUMM (1.4-6.5); ABSOLUTE LYMPH COUNT 2.4 /CUMM (1.2-3.4); ABSOLUTE MONOCYTE COUNT 0.9 /CUMM (0.10-0.60); BASOPHIL % 0.4 % (0.0-2.0); EOSINOPHIL % 1.6 % (0-5); GRANULOCYTE % 54.1 % (42.2-75.2); HEMATOCRIT 24.1 % (42-52); MEAN CORPUSCULAR HGB 35.1 PG (27.0-31.0); MEAN CORPUSCULAR HGB CONC 33.9 G/DL (33.0-37.0); MEAN CORPUSCULAR VOLUME 103.4 FL (80.0-94.0); MEAN PLATELET VOLUME 10.1 FL (7.4-10.4); PLATELET COUNT 164 /CUMM (130-400); RBC DISTRIBUTION WIDTH 14.5 % (11.5-14.5); RED BLOOD CELL CT 2.33 /CUMM (4.70-6.10); WHITE BLOOD CELL COUNT 7.5 /CUMM (4.8-10.8)
[2017-12-13 12:00] VITALS: BP 120/70
--- NOTE | 2017-12-13 12:30 | Transfer of Care Summary ---
Hospital Course Course Hospital Course: 57 year old male with past medical history significant for heavy smoking and alcohol use disorder, history of alcohol withdrawal seizure, delirium tremens requiring ICU admission in 2013, and chronic back pain on disability was brought in for fevers, chills, diarrhea, and weakness. On admission, he had a lactate of 11, fever to 101, pancytopenia, transaminitis, hypocalcemia, hypomagnesemia, hypokalemia, and a right upper quadrant ultrasound showed acalculous cholecystitis. He underwent CT imaging of the chest, abdomen, and pelvis to localize the source of infection. He was admitted to critical care for treatment of severe sepsis secondary to probable cholecystitis. He was given aggressive intravascular volume resuscitation with crystalloid and started on ceftriaxone and metronidazole. Coverage was broadened when blood cultures were preliminarily positive for GPCs. A HIDA scan showed a chronic cholecystitis and general surgery signed off. After cultures were finalized with coag negative staph in both the blood and urine, coverage was narrowed to ceftriaxone only. His hospital course was then complicated by several alcohol withdrawal, electrolyte abnormalities, and metabolic encephalopathy. This was treated with high dose benzodiazepines, aggressive electrolyte repletion, and high dose thiamine. He likely aspirated during this period of altered mental status, because he became febrile again, hypoxemic, and chest x-ray showed a new left lower lobe infiltrate. His antibiotics were changed to Unasyn for aspiration pneumonia and his mental status gradually improved. His benzodiazepines were tapered and he passed a formal swallow evaluation. His blood pressure remained borderline for which he was given albumin and additional crystalloid. He did have upper extremity edema, right greater than left, evaluated with an ultrasound that demonstrated a superficial venous thrombus. His urine output and blood pressure are both significantly improved but he still becomes tachycardic > 120, when he does any physical exertion. Significant Procedures: CT C/A/P IMPRESSION: 1. No acute injuries are identified in the chest, abdomen, and pelvis. 2. Clear lungs. No pneumonia. 3. Mild wall thickening and surrounding pericolonic stranding at the ascending colon, concerning for mild colitis. Appendix is normal. No evidence of perforation. 4. Gallbladder wall thickening. This may be reactive to the adjacent inflammation at the colon or due to underlying hepatocellular disease. Acute cholecystitis is less likely. No cholelithiasis identified. 5. Hepatic steatosis. 6. Multilevel degenerative disc disease in the thoracolumbar spine. Superior endplate compression fractures at the L3, L4, and L5 vertebral bodies are favored to be chronic, though prior comparisons are not available and acute fractures at these levels cannot be completely excluded. RUQ U/S FINDINGS: PANCREAS: The pancreas is completely obscured by overlying gas. LIVER: The liver demonstrates enlarged size, contour and increased echogenicity. No focal lesion or intrahepatic biliary duct dilatation. GALLBLADDER: The gallbladder contains echogenic bile with 0.8 cm wall thickness. There is echogenic fluid within the gallbladder wall and anechoic fluid around the gallbladder wall consistent with cholecystitis. There is no echogenic stone visualized. COMMON BILE DUCT: Normal in caliber measuring 0.5 cm in diameter. RIGHT KIDNEY: Normal. No hydronephrosis. No renal calculi or focal parenchymal lesions. The kidney measures 11.6 cm in maximum dimension. FREE FLUID: None. IMPRESSION: Findings most suggestive of acalculous cholecystitis. Thickened gallbladder wall and anechoic pericholecystic fluid collection. HIDA FINDINGS: There is good concentration of activity in the liver by 5 minutes post injection. Biliary activity is well visualized by 25 minutes, and there is good visualization of small bowel activity by 30 minutes. The gallbladder is not visualized on the initial 60 minutes of imaging, but there is faint gallbladder visualization by 70 minutes. At the end of the study at 95 minutes post injection there is abnormal persistent activity diffusely in the liver but the gallbladder continues to be visualized. Diffuse small bowel activity is also visualized at this time. IMPRESSION: Abnormal study. Visualization of the gallbladder after 60 minutes is abnormal and most consistent with chronic cholecystitis. Visualization of the gallbladder is evidence of a patent cystic duct and strong evidence against the diagnosis of acute cholecystitis. The common bile duct is patent. There is prolonged retention of activity in the liver, and this is evidence of diffuse hepatocellular disease. RUE U/S IMPRESSION: Positive for superficial nonocclusive thrombus in the left lower cephalic vein. ECHO FINDINGS Left Ventricle Normal size left ventricle. Mildly decreased left ventricular systolic function. Left ventricular ejection fraction is estimated at 45-50%. Mild global hypokinesis. Normal left ventricular wall thickness. Right Ventricle Normal right ventricular size and function. Right Atrium Normal right atrial size. Left Atrium Normal left atrial size. Mitral Valve Mild mitral annular calcification. Trace mitral regurgitation. Aortic Valve Aortic valve mildly thickened. No aortic stenosis. No aortic regurgitation. Tricuspid Valve Tricuspid valve not well visualized, grossly normal. Trace tricuspid regurgitation. Pulmonic Valve Pulmonic valve not well visualized, grossly normal. Trace pulmonic regurgitation. Pericardium No pericardial effusion. Great Vessels Normal size aortic root. CONCLUSIONS Normal size left ventricle. Mildly decreased left ventricular systolic function. Left ventricular ejection fraction is estimated at 45-50%. Mild global hypokinesis. Assessment/Plan: Severe sepsis: Presented with fever, tachycardia, leukocytosis, and severe lactic acidema Originally thought to be abdominal source, RUQ U/S c/w acalculous cholecystitis HIDA negative Urine and blood positive for coag negative staph, likely contaminants Aspiration pneumonia Hypoxia, new fever, and left lower lobe opacity on chest x-ray now on Unasyn Day 3 (12/13/17) of 5 days for treatment of aspiration pneumonia Elevated anion gap metabolic acidosis from lactic acidemia Probably from severe sepsis with lactic acidosis and starvation ketosis Resolved with aggressive intravascular volume resuscitation Metabolic encephalopathy: Originally from sepsis then EtOH withdrawal, improved currently Also had elevated ammonia treated with lactulose now stopped for diarrhea, f/u C diff Severe alcohol withdrawal Ativan being tapered, 1mg po bid currently Malnutrition with electrolyte abnormalities, hypo-kalemia calcemia, magnesia, and phosphatemia Repleting daily, follow up daily and replete prn Thrombocytopenia/Anemia Stable chronic RUE superficial DVT: Conservative mgmt, no anticoagulation Hoffman catheter discontinued. No central lines, pressors, or ventilatory support required in the ICU. Day 3 of 5 of Unasyn for treatment of aspiration pneumonia. Previously treated with ceftriaxone (4 days), vancomycin, and metronidazole (1 day)
[2017-12-13 13:00] VITALS: BP 116/68
[2017-12-13 16:00] VITALS: BP 102/58
[2017-12-13 18:00] VITALS: BP 102/50
[2017-12-13 23:26] VITALS: BP 130/72
[2017-12-14 06:08] VITALS: BP 130/70
[2017-12-14 08:00] VITALS: BP 130/70
[2017-12-14 10:00] VITALS: BP 126/70
--- NOTE | 2017-12-14 11:15 | PN- Housestaff ---
Faviola Henry 12/14/17 1115: Subjective Follow-up For: Sepsis with lactic acidosis-resolved Ethanol Abuse/withdrwals COPD-Stable Acalculous Choleycystitis Tele-Events Since Last Visit: NSR, 83, 0.10, 0.16 Subjective: Patient seen and examined at bedside this morning. Patient transfered from ICU. Denies any significant complaints. No chest pain, palpiations, shortness of breath or abdominal pain. Tolerating PO well. Review of Systems Constitutional: Denies: see HPI. Objective Last 24 Hrs of Vital Signs/I&O Vital Signs Date Time Temp Pulse Resp B/P B/P Pulse O2 O2 Flow FiO2 Mean Ox Delivery Rate 12/14 08 98.7 110 16 130/70 12/14 0800 96 Room Air Room Air 12/14 0608 98.7 110 18 130/70 96 Room Air 12/13 2326 98.9 107 16 130/72 96 Room Air 12/13 1800 99.3 97 20 102/50 12/13 1600 99.2 98 18 102/58 95 Room Air Room Air 12/13 1600 96 Room Air Room Air 12/13 1443 98 Room Air Intake & Output 12/14 1600 12/14 0800 12/14 0000 Intake Total 220 Output Total Balance 220 Intake, Oral 220 Number 2 Bowel Movements Physical Exam General Appearance: Alert, Oriented X3, Cooperative HEENT: PERRLA, EOMI Neck: Supple, No JVD Cardiovascular: Regular Rate, Normal S1, Normal S2 Lungs: Clear to Auscultation, Normal Air Movement Abdomen: Normal Bowel Sounds, Soft, No Tenderness Neurological: Strength at 5/5 X4 Ext, Sensation Intact, Reflexes 2+ Extremities: No Clubbing, No Cyanosis, No Edema Vascular: Normal Pulses, Pulses Symmetrical Current Medications: Current Medications Sig/Christal Start time Last Medication Dose Route Stop Time Status Admin Albuterol Sulfate 3 ML Q4P PRN 12/12 2200 AC INH Ampicillin Sodium/ 3,000 MG Q6 12/11 1200 AC 12/14 Sulbactam Sodium IV 1158 Sodium Chloride 100 ML Calcium Carbonate 1,250 MG BID 12/09 0900 AC 12/14 PO 0818 Folic Acid 1 MG DAILY 12/08 0900 AC 12/14 PO 0818 Heparin Sodium 5,000 UNIT Q8 12/08 1400 AC 12/14 (Porcine) SC 0531 Ipratropium [place] 2.5 ML BID 12/09 1028 AC 12/12 INH 2141 Lorazepam 0 Q4 PRN 12/13 1824 AC IV Lorazepam 1 MG BID 12/13 0930 AC 12/14 PO 0818 Lorazepam 0 Q1P PRN 12/07 2345 DC 12/09 IV 0528 Magnesium Oxide 400 MG BID 12/12 2100 AC 12/14 PO 0818 Multivitamins 1 TAB DAILY 12/08 09 AC 12/14 PO 0818 Nicotine 14 MG DAILY 12/08 09 AC 12/14 TOP 0818 Nystatin 1 MOY TID 12/11 2349 AC 12/14 TOP 0819 Omeprazole 40 MG DAILY AC 12/09 0700 AC 12/14 PO 0531 Phosphate 250 MG PC AND AT BEDTIME 12/13 1300 AC 12/14 PO 1239 Thiamine HCl 100 MG DAILY 12/08 09 AC 12/14 PO 0818 Last 24 Hrs of Lab/Marek Results Last 24 Hrs of Labs/Mics: Laboratory Tests 12/14/17 0605: Anion Gap 8, Estimated GFR > 60, Glucose 64 L, Calcium 7.0 L, Phosphorus 2.4 L, Magnesium 1.3 L, Total Bilirubin 1.0, AST 37, ALT 28, Albumin 1.9 L Microbiology 12/13 1700 STOOL: Clostridium difficile Toxin A & B - COMP Orders CIWA Score (last 24 hrs): 0 Assessment/Plan Assessment: A/P: Patient is a 57 year male with a past medical history significant for smoking 2 packs a day and alcohol abuse disorder (6 beers a day), history of alcohol withdrawal seizures and previous rehab, DTs requiring ICU admission in 2013, chronic back pain on disability was brought in the ED for fevers, chills, diarrhea. Patient had an elevated lactate of 11 that has resolved, fevoer 101, pancytopenia, transaminitis, right upper quardrant US demonstrating acalculous cholecystitis. Patient transfered from ICU to telemetry unit. Problem List: 1. Sepsis with lactic acidosis 2. Ethanol abuse and withdrawals 3. COPD 4. Acalculous Choleycsititis PLAN: * Patient has received extensive antibiotics for coverage of coagulase negative staph grown in blood cultures; CXR demonstrating LLL opacity; patient received 4 /5 doses of Unasyn; 4 doses of ceftriaxone; metronodizole and 2 doses of vancomycin -Switch to PO Augmentin for 3 more days -patient afebrile, no significant leukocytosis, lactic acidosis trending down * No symptoms of withdrawal present; continue CIWA protocol; social work for rehab options * COPD - stable; not on home O2; educated to quit smoking Code Status: Full Code DVT PPx: Heparin SC + ALPS Diet: Diet Problem List: 1. Alcohol withdrawal 2. Acalculous cholecystitis 3. Aspiration pneumonia Pain Ratin Pain Location: No pain today Pain Goal: Remain pain free Pain Plan: as per pain pathway Tomorrow's Labs & Rationales: CBC BEP DVT/Prophylaxis: pharmacological Kathy Gonsalez 12/14/17 1326: Attending MD Review Statement Attending Statement Attending MD Statement: examined this patient, discuss w/resident/PA/CUSTOMER LOGISTICS MANAGER, agreed w/resident/PA/CUSTOMER LOGISTICS MANAGER, reviewed EMR data (avail), discussed with nursing, discussed with case mgmt Attending Assessment/Plan: 57 yr male with pmh significant for heavy smoking ( 2 PPD) and alcohol use disorder (drinks beer), history of alcohol withdrawal seizure and has been in rehab previously, delirium tremens requiring ICU admission in 2013, and chronic back pain on disability was brought in for fevers, chills, diarrhea, and weakness. On admission, he had a lactate of 11, fever to 101, pancytopenia, transaminitis, hypocalcemia, hypomagnesemia, hypokalemia, and a right upper quadrant ultrasound showed acalculous cholecystitis. Sepsis with lactic acidosis-resolved. initially got vancomycin and ceftriaxone and flagyl. Later on pt had an aspiration event and was switched to unasyn and had got 4 days of unasyn . We will switch him to po aumgentin for 3 more days. ? Acalculous choleycystitis- seen by surgery and signed off. LFTs normalized. Etoh abuse and withdrawls- pt not withdrawing actively anymore. will get SW consult to discuss with rehab options. COPD- stable. cousnelled pt to quit smoking. d/w pt the care plan.
[2017-12-14 12:00] VITALS: BP 130/80
[2017-12-14 15:18] VITALS: BP 142/70
[2017-12-14 21:38] VITALS: BP 140/70
[2017-12-15 07:01] VITALS: BP 130/76
--- NOTE | 2017-12-15 07:01 | PN- Housestaff ---
Faviola Henry 12/15/17 0700: Subjective Follow-up For: Sepsis with lactic acidosis-resolved Ethanol abuse/withdrawals COPD-Stable Acalculous Cholecystitis - resolved Tele-Events Since Last Visit: NSR, 100-109, 0.08, 0.16 Subjective: Patient seen and examined this morning. Nurse states the patient had 2 episodes of incontinence. Patient denies any chest pain, nausea, vomiting, tremors. Patient able to get up out of bed and ambulate. Discussed with options for home PT although he is uninsured. Review of Systems Constitutional: Denies: see HPI. Objective Last 24 Hrs of Vital Signs/I&O Vital Signs Date Time Temp Pulse Resp B/P B/P Pulse O2 O2 Flow FiO2 Mean Ox Delivery Rate 12/15 0701 99.5 110 18 130/76 95 Room Air 12/15 0000 Room Air Room Air 12/14 2138 98.3 111 18 140/70 94 12/14 2058 95 Room Air Room Air 12/14 1600 Room Air 12/14 1518 99.1 111 20 142/70 94 12/14 1200 104 130/80 Intake & Output 12/15 1600 12/15 0800 12/15 0000 Intake Total 50 180 Output Total 400 525 Balance -350 -345 Intake, Oral 50 180 Number 5 Bowel Movements Output, Urine 400 525 Physical Exam General Appearance: Alert, Oriented X3, Cooperative HEENT: Atraumatic, PERRLA, EOMI Cardiovascular: Regular Rate, Normal S1, Normal S2 Lungs: Clear to Auscultation, Normal Air Movement Abdomen: Normal Bowel Sounds, Soft, No Tenderness Neurological: Normal Speech, Strength at 5/5 X4 Ext, Normal Tone, Reflexes 2+ Extremities: No Clubbing, No Cyanosis, No Edema Vascular: Normal Pulses, Pulses Symmetrical Current Medications: Current Medications Sig/Christal Start time Last Medication Dose Route Stop Time Status Admin Albuterol Sulfate 3 ML Q4P PRN 12/12 2200 AC INH Amoxicillin/ 875 MG Q12 12/14 2100 AC 12/15 Clavulanate Potassium PO 09 Ampicillin Sodium/ 3,000 MG Q6 12/11 1200 DC 12/14 Sulbactam Sodium IV 1158 Sodium Chloride 100 ML Calcium Carbonate 1,250 MG BID 12/09 09 AC 12/15 PO 09 Folic Acid 1 MG DAILY 12/08 09 AC 12/15 PO 0913 Heparin Sodium 5,000 UNIT Q8 12/08 1400 AC 12/15 (Porcine) SC 0544 Ipratropium [place] 2.5 ML BID 12/09 1028 DC 12/12 INH 2141 Lorazepam 0.5 MG BID 12/15 0900 AC 12/15 PO 12/20 0929 0913 Lorazepam 0 Q4 PRN 12/13 1824 AC IV Lorazepam 1 MG BID 12/13 0930 DC 12/14 PO 2211 Magnesium Oxide 400 MG BID 12/12 2100 AC 12/15 PO 0913 Multivitamins 1 TAB DAILY 12/08 0900 AC 12/15 PO 0913 Nicotine 14 MG DAILY 12/08 0900 AC 12/15 TOP 0913 Nystatin 1 MOY TID 12/11 2349 AC 12/15 TOP 0914 Omeprazole 40 MG DAILY AC 12/09 0700 AC 12/15 PO 0543 Phosphate 250 MG PC AND AT BEDTIME 12/13 1300 AC 12/15 PO 0913 Thiamine HCl 100 MG DAILY 12/08 0900 AC 12/15 PO 0912 Last 24 Hrs of Lab/Marek Results Last 24 Hrs of Labs/Mics: Laboratory Tests 12/15/17 0645: Anion Gap 9, Estimated GFR > 60, BUN/Creatinine Ratio 3.3 L, CBC w Diff NO MAN DIFF REQ, RBC 2.21 L, MCV 103.1 H, MCH 34.2 H, MCHC 33.2, RDW 14.8 H, MPV 9.7, Gran % 66.7, Lymphocytes % 23.8, Monocytes % 8.8, Eosinophils % 0.3, Basophils % 0.4, Absolute Granulocytes 6.2, Absolute Lymphocytes 2.2, Absolute Monocytes 0.8 H, Absolute Eosinophils 0, Absolute Basophils 0 Orders CIWA Score (last 24 hrs): 0 Assessment/Plan Assessment: Patient is a 57 year male with a past medical history significant for smoking 2 packs a day and alcohol abuse disorder (6 beers a day), history of alcohol withdrawal seizures and previous rehab, DTs requiring ICU admission in 2013, chronic back pain on disability was brought in the ED for fevers, chills, diarrhea. Patient had an elevated lactate of 11 that has resolved, fevoer 101, pancytopenia, transaminitis, right upper quardrant US demonstrating acalculous cholecystitis. Patient transfered from ICU to telemetry unit. Patient on day 2/3 of Augmentin today. Was incontinent as per nurse but able to ambulate out of bed independently. PT evaluation BID. No withdrawal symptoms present. Problem List: 1. Sepsis with lactic acidosis-resolved 2. Ethanol abuse and withdrawals 3. COPD-stable 4. Acalculous cholecystitis-stable PLAN: * Patient on day 2/3 of Augmentin today; patient afebrile, no leukocytosis * No symptoms of withdrawal present today; CIWA scores 0s; will follow with social work for rehab options since patient uninsured * PT evaluation BID; home self care once goals met; unable to have home PT 2/2 lack of insurance * COPD-stable not on home O2; patient advised to quit smoking Code Status: Full Code DVT PPx: Heparin SC + ALPS Diet: Regular Problem List: 1. Alcohol withdrawal Pain Ratin Pain Location: Denies pain Pain Goal: Remain pain free Pain Plan: As per pain pathway Tomorrow's Labs & Rationales: CBC, BEP DVT/Prophylaxis: pharmacological Kathy Gonsalez 12/15/17 1325: Attending MD Review Statement Attending Statement Attending MD Statement: examined this patient, discuss w/resident/PA/TELEPHONE LINEMAN, agreed w/resident/PA/TELEPHONE LINEMAN, reviewed EMR data (avail), discussed with nursing, discussed with case mgmt Attending Assessment/Plan: 57 yr male with pmh significant for heavy smoking ( 2 PPD) and alcohol use disorder (drinks beer), history of alcohol withdrawal seizure and has been in rehab previously, delirium tremens requiring ICU admission in 2013, and chronic back pain on disability was brought in for fevers, chills, diarrhea, and weakness. On admission, he had a lactate of 11, fever to 101, pancytopenia, transaminitis, hypocalcemia, hypomagnesemia, hypokalemia, and a right upper quadrant ultrasound showed acalculous cholecystitis. Sepsis with lactic acidosis-resolved. initially got vancomycin and ceftriaxone and flagyl. Later on pt had an aspiration event and was switched to unasyn and had got 4 days of unasyn . currently on po augmentin. ? Acalculous choleycystitis- seen by surgery and signed off. LFTs normalized. Etoh abuse and withdrawls- pt not withdrawing actively anymore. will get SW consult to discuss with rehab options. Pt most likely will go for AA meetings. Decreased ativan to 0.5mg po bid. COPD- stable. cousnelled pt to quit smoking. d/w pt the care plan.
[2017-12-15 08:00] VITALS: BP 132/80
[2017-12-15 08:00] LABS: ABSOLUTE BASOPHIL COUNT 0 /CUMM (0.0-0.2); ABSOLUTE EOSINOPHIL COUNT 0 /CUMM (0.0-0.7); ABSOLUTE GRANULOCYTE CT 6.2 /CUMM (1.4-6.5); ABSOLUTE LYMPH COUNT 2.2 /CUMM (1.2-3.4); ABSOLUTE MONOCYTE COUNT 0.8 /CUMM (0.10-0.60); BASOPHIL % 0.4 % (0.0-2.0); EOSINOPHIL % 0.3 % (0-5); GRANULOCYTE % 66.7 % (42.2-75.2); HEMATOCRIT 22.8 % (42-52); MEAN CORPUSCULAR HGB 34.2 PG (27.0-31.0); MEAN CORPUSCULAR HGB CONC 33.2 G/DL (33.0-37.0); MEAN CORPUSCULAR VOLUME 103.1 FL (80.0-94.0); MEAN PLATELET VOLUME 9.7 FL (7.4-10.4); PLATELET COUNT 239 /CUMM (130-400); RBC DISTRIBUTION WIDTH 14.8 % (11.5-14.5); RED BLOOD CELL CT 2.21 /CUMM (4.70-6.10); WHITE BLOOD CELL COUNT 9.3 /CUMM (4.8-10.8)
--- NOTE | 2017-12-15 11:14 | Patient Discharge Instructions ---
Discharge Instructions General Discharge Information You were seen/treated for: Sepsis with lactic acidosis-resolved Ethanol abuse/withdrawals COPD-table Aclaculous Cholecystisis Watch for these problems: Worsening chest pain, shortness of breath, tremors, seizures, syncope Special Instructions: Please follow up with PCP referral within 1 week of discharge Please follow up with Pulmonology within 1 week of discahrge Please follow up with Gastroenterology within 1 week of discharge Acute Coronary Syndrome Inclusion Criteria At DC or during hospital stay patient has or had the following: ACS DIAGNOSIS No Discharge Core Measures Meds if any: Prescribed or Continued at Discharge Meds if any: NOT Prescribed or Continued at Discharge Congestive Heart Failure Inclusion Criteria At DC or during hospital stay patient has or had the following: CHF DIAGNOSIS No Discharge Core Measures Meds if any: Prescribed or Continued at Discharge Meds if any: NOT Prescribed or Continued at Discharge Cerebrovascular accident Inclusion Criteria At DC or during hospital stay patient has or had the following: CVA/TIA Diagnosis No Discharge Core Measures Meds if any: Prescribed or Continued at Discharge Meds if any: NOT Prescribed or Continued at Discharge Venous thromboembolism Inclusion Criteria VTE Diagnosis No VTE Type NONE VTE Confirmed by (Test) NONE Discharge Core Measures - Per Current guidelines, there needs to be overlap - treatment for the first 5 days of Warfarin therapy. - If discharged on Warfarin prior to 5 days of - overlap therapy, the patient will need to be - assessed for post discharge needs including - *Post discharge parental anticoagulation - *Warfarin and/or parental anticoagulation education - *Follow up date to check INR post discharge At least 5 days overlap therapy as Inpatient No Meds if any: Prescribed or Continued at Discharge Note: Overlap Therapy is Warfarin and Anticoagulant Meds if any: NOT Prescribed or Continued at Discharge
[2017-12-15 12:00] VITALS: BP 130/70
[2017-12-15 14:13] VITALS: BP 110/50
--- NOTE | 2017-12-15 15:06 | Discharge Summary ---
Visit Information Visit Dates Admission Date: 12/07/17 Discharge Date: 12/17/17 Hospital Course Course Attending Physician: Kathy Gonsalez MD Primary Care Physician: Patient Has No Primary Care Dr Hospital Course: INTIAL HOSPITAL COURSE/ICU COURSE Patient is a 57-year-old male with past medical history significant for smoking and alcohol use disorder, history of alcohol withdrawal seizures, delirium tremens requiring ICU admission in 2013, and chronic back pain and disability was brought to [facility] ED for fever, chills, diarrhea and weakness. On admission in the emergency department, patient had a lactate of 11, fever of 101.0, pancytopenia, transaminitis, hypocalcemia, hypomagnesemia, hypokalemia, and a right upper quadrant ultrasound that demonstrated a calculus cholecystitis. Patient had also underwent CT imaging of the chest, abdomen and pelvis in order to find the source of infection. Patient was admitted to the ICU team for treatment of severe sepsis secondary to probable cholecystitis. Patient was given aggressive intravascular volume resuscitation with crystalloid and started on antibiotics (ceftriaxone and metronidazole). Blood cultures were preliminary positive for gram positive cocci and coverage was broadened. A HIDA scan demonstrated a chronic cholecystitis and general surgery had decided to sign off at that point with no further intervention. After cultures were finalized with coagulase negative staph in both the blood and urine, coverage was narrowed to Ceftriaxone only. Further issues included severe alcohol withdrawal, electrolyte abnormalities and metabolic encephalopathy. This was managed with high dose benzodiazepines, agressive electorlyte repletion and thiamine at high dose. It is very likely that during this phase of altered mental status/withdrawals, the patient had aspirated as he became febrile again, hypoxemic. Chest x-ray was received demonstrating new left lower lobe infiltrate. Antibiotics at this time were changed to Unasyn for Aspiration Pneumonia and his mental status gradually improved. Benzodiazepines were tapered and he passed a formal swallow evaluation. Blood pressure remained borderline and was given albumin and additional crystalloid. Patient also had an upper extremity edema (right greater than left). This was evaluated with an ultrasound that demonstrated superficial venous thrombus. Urine output and blood pressures significantly improved besides a baseline tachycardia when patient is physically exerted. Relevant Imaging: CT C/A/P: IMPRESSION: 1. No acute injuries are identified in the chest, abdomen, and pelvis. 2. Clear lungs. No pneumonia. 3. Mild wall thickening and surrounding pericolonic stranding at the ascending colon, concerning for mild colitis. Appendix is normal. No evidence of perforation. 4. Gallbladder wall thickening. This may be reactive to the adjacent inflammation at the colon or due to underlying hepatocellular disease. Acute cholecystitis is less likely. No cholelithiasis identified. 5. Hepatic steatosis. 6. Multilevel degenerative disc disease in the thoracolumbar spine. Superior endplate compression fractures at the L3, L4, and L5 vertebral bodies are favored to be chronic, though prior comparisons are not available and acute fractures at these levels cannot be completely excluded. RUQ U/S: Findings most suggestive of acalculous cholecystitis. Thickened gallbladder wall and anechoic pericholecystic fluid collection. HIDA: IMPRESSION: Abnormal study. Visualization of the gallbladder after 60 minutes is abnormal and most consistent with chronic cholecystitis. Visualization of the gallbladder is evidence of a patent cystic duct and strong evidence against the diagnosis of acute cholecystitis. The common bile duct is patent. There is prolonged retention of activity in the liver, and this is evidence of diffuse hepatocellular disease. RUE U/S IMPRESSION: Positive for superficial nonocclusive thrombus in the left lower cephalic vein. ECHO: 45-50% EF; mild decreased left ventricular systolic function TRANSFER TO TELEMETRY UNIT Hoffman catheter was discontinued prior to transfer. No central lines, pressors or ventilatory support required in the ICU. Patient was transferred to telemetry on Day 3 of 5 of [facility] for treatment of Aspiration Pneumonia. Previously was treated with ceftriaxone (4days), vancomycin, and metronidazole (1 day). Problem List Transfer to Telemetry: 1. Sepsis with lactic acidosis-resolved 2. Aspiration Pneumonia-on antitbiotics;stable 3. Elevated Anion Gap-resolved with volume resuscitation 4. Metabolic Encephalopathy-improved 5. Severe Alchol Withdrawal-tapered ativan 6. Malnutrition with Electrolyte Abnormalities-repleated daily 7. Thrombocytopenia/Anemia-stable/chronic 8. RUE superficial DVT-conservative/no anticoagulation During patients time in the telemetry unit he was managed for the followin. Sepsis with lactic acidosisresolved 2. Alcohol abuse and withdrawalsstable/Ativan taper 3. COPDstable not on home O2 4. Acalculous cholecystitis stable 5. Microcytic anemia Sepsis with lactic acidosis Lactate level leukocytosis has resolved. Patient was to finish oral antibiotics Augmentin 3/3 days. Patient remained afebrile without any complaints during his stay in the. Alcohol abuse and withdrawals CIWA scores were consistently monitored. Prior to discharge patient denied any tremors, anxiety, nausea and vomiting and was scoring in the 0s. Oral ativan was tapered down to 0. Patient educated and advised to quit drinking. COPD Patient not on any home oxygen. He did not state he has any shortness of breath while the telemetry unit. Was required. Patient saturating well on room air. Patient educated on quitting smoking upon discharge. Advised to follow with pulmonology and primary care doctor. Acalculus cholecystitis Patient denied any abdominal pain during this time the telemetry unit. Patient advised to follow-up with PCP and GI on discharge. Microcytic Anemia Patient's lab on 12/16/17 indicated a hemoglobin drop of 6.8 hematocrit of 20.2. Iron panel was ordered. Will transfuse patient 1 unit packed RBCs. Followed up in the a.m. and hemoglobin stabilized 8.0. Recommended iron supplement by mouth and will prescribe for discharge. Vision advised to follow with PCP upon discharge. Deconditioning Patient was seen by PT twice a day while his time on the telemetry unit. He has significant improvement prior to discharge. PT recommended home self care. CODE STATUS: Full code DVT prophylaxis: Heparin SC Diet: Regular Allergies: Coded Allergies: NO KNOWN ALLERGIES (12/27/13) Disposition Summary Disposition Principal Diagnosis: Severe Sepsis Additional Diagnosis: Aspiration Pneumonia Alcohol Withdrawal Discharge Disposition: home or self care Discharge Instructions General Discharge Information Code Status: Full Code Patient's Diet: Regular Patient's Activity: As tolerated Follow-Up Instructions/Appts: Please follow up with PCP (Vernon) referral as soon as possible. Please follow up with Utilization Review Specialist as soon as possible. Please attend AA and consider cutting back on alcohol and smoking cessation. Return to the ED for worsening chest pain, palpitations, shortness of breath, abdominal pain. Medications at Discharge Discharge Medications: Continue taking these medications: Naproxen (Naproxen) 250 MG TABLET 1 Tablet ORAL TWICE DAILY as needed for Pain Qty = 30 Comments: NOT GIVEN. Start taking the following new medications: Ferrous Sulfate (Ferrous Sulfate) 325 MG (65 MG IRON) TABLET 1 Tablet ORAL DAILY Qty = 30 No Refills Instructions: . Comments: Last Taken: 12/17/17 Time: 10:00 AM Folic Acid (Folic Acid) 1 MG TABLET 1 Tablet ORAL DAILY Qty = 30 No Refills Instructions: . Comments: Last Taken: 12/17/17 Time: 8:00 AM Nicotine (Nicotine Patch) 21 MG/24 HOUR PATCH.TD24 1 Patch On the skin DAILY Qty = 28 No Refills Instructions: . Comments: Last Taken: 12/17/17 Time: 8:00 AM Omeprazole (Omeprazole) 20 MG CAPSULE.DR 1 Capsule ORAL DAILY Qty = 30 No Refills Instructions: . Comments: Last Taken: 12/17/17 Time: 6:00 AM Thiamine HCl (Vitamin B-1) 100 MG TABLET 100 Milligram ORAL DAILY Qty = 30 No Refills Instructions: . Comments: Last Taken: 12/17/17 Time: 8:00 AM Magnesium Oxide (Magnesium Oxide) 400 MG TABLET 1 Tablet ORAL TWICE DAILY Qty = 60 No Refills Copies To: Vernon DONIS,Vernon; Alessia Harman MD; Manjeet DONIS,Angel Griffin
[2017-12-15] MEDS ORDERED: NICOTINE PATCH1 EAC3 TOP (15:55)
[2017-12-15] MEDS ORDERED: OMEPRAZOLE20 M2 PO (15:59)
[2017-12-15] MEDS ORDERED: FOLIC ACID1 M1 PO (15:59)
[2017-12-15] MEDS ORDERED: VITAMIN B-1100 MG PO (15:59)
[2017-12-15 21:47] VITALS: BP 120/54
[2017-12-16 06:29] VITALS: BP 130/62
--- NOTE | 2017-12-16 07:04 | PN- Housestaff ---
Faviola Henry 12/16/17 0704: Subjective Follow-up For: Sepsis with lactic acidosis-resolved Acalculous cholecystitis-LFTS normalized;surgery signed off alcohol abuse with withdrawalspatient not withdrawing actively anymore COPDstable Acute anemia requiring blood transfusion Hypomagnesemiarepleted: Continue home p.o. Tele-Events Since Last Visit: Sinus tachycardia, 104 to 1090.08, 0.16 Subjective: Patient seen and examined at bedside this morning. Patient also seen by the medical student. Patient claims that he has been ambulating with assistance to the bathroom. Patient tolerating p.o. patient denies any chest pain, palpitations, shortness of breath, nausea, vomiting. Patient seen by PT today and cleared for discharge home. Review of Systems Constitutional: Denies: see HPI. Objective Last 24 Hrs of Vital Signs/I&O Vital Signs Date Time Temp Pulse Resp B/P B/P Pulse O2 O2 Flow FiO2 Mean Ox Delivery Rate 12/16 0629 99.0 109 18 130/62 94 Room Air 12/16 0000 Room Air 12/15 2147 99.3 110 18 120/54 93 Room Air 12/15 1413 100.2 104 18 110/50 96 Room Air Intake & Output 12/16 1600 12/16 0800 12/16 0000 Intake Total 100 Output Total 625 650 Balance -525 -650 Intake, Oral 100 Number 3 Bowel Movements Output, Urine 625 650 Patient 178 lb Weight Weight Bed scale Measurement Method Physical Exam General Appearance: Alert, Oriented X3, Cooperative, No Acute Distress Neck: Supple, No JVD Cardiovascular: Regular Rate, Normal S1, Normal S2 Lungs: Clear to Auscultation, Normal Air Movement Abdomen: Normal Bowel Sounds, Soft, No Tenderness Neurological: Normal Speech, Strength at 5/5 X4 Ext, Normal Tone, Sensation Intact, Cranial Nerves 3-12 NL Extremities: No Clubbing, No Cyanosis, No Edema Vascular: Normal Pulses, Pulses Symmetrical Current Medications: Current Medications Sig/Christal Start time Last Medication Dose Route Stop Time Status Admin Amoxicillin/ 875 MG Q12 12/14 2100 AC 12/16 Clavulanate Potassium PO 0854 Calcium Carbonate 1,250 MG BID 12/09 0900 AC 12/16 PO 0854 Folic Acid 1 MG DAILY 12/08 09 AC 12/16 PO 0854 Heparin Sodium 5,000 UNIT Q8 12/08 1400 AC 12/16 (Porcine) SC 0451 Lorazepam 0.5 MG BID 12/15 0900 DC 12/16 PO 12/20 0929 0855 Lorazepam 0 Q4 PRN 12/13 1824 AC IV Magnesium Oxide 400 MG BID 12/12 2100 AC 12/16 PO 0854 Magnesium Sulfate 1 GM Q2H 12/16 1215 AC Dextrose/Water 100 ML IV 12/16 1614 Multivitamins 1 TAB DAILY 12/08 0900 AC 12/16 PO 0854 Nicotine 14 MG DAILY 12/08 0900 AC 12/16 TOP 0855 Nystatin 1 MOY TID 12/11 2349 AC 12/16 TOP 0858 Omeprazole 40 MG DAILY AC 12/09 0700 AC 12/16 PO 0451 Phosphate 250 MG PC AND AT BEDTIME 12/13 1300 AC 12/16 PO 0854 Thiamine HCl 100 MG DAILY 12/08 0900 AC 12/16 PO 0854 Last 24 Hrs of Lab/Marek Results Last 24 Hrs of Labs/Mics: Laboratory Tests 12/16/17 0642: Anion Gap 8, Estimated GFR > 60, BUN/Creatinine Ratio 4.0 L, Phosphorus 3.2, Magnesium 1.3 L, Iron 23 L, TIBC 208 L, Ferritin 43.8, CBC w Diff NO MAN DIFF REQ, RBC 1.98 L, MCV 102.3 H, MCH 34.4 H, MCHC 33.6, RDW 14.6 H, MPV 9.3, Gran % 62.3, Lymphocytes % 30.0, Monocytes % 6.8, Eosinophils % 0.4, Basophils % 0.5, Absolute Granulocytes 4.7, Absolute Lymphocytes 2.3, Absolute Monocytes 0.5 , Absolute Eosinophils 0, Absolute Basophils 0 Assessment/Plan Assessment: Patient is a 57-year-old male with past medical history significant for smoking 2 packs a day and alcohol abuse disorder (6 beers a day), history of alcohol withdrawal seizures in previous rehab, delirium tremens requiring ICU admission in 2013, chronic back pain on disability was brought in the ED for fevers, chills, diarrhea. Patient had elevated lactate 11 at that time which has now resolved, fever of 101.0 on admission, pancytopenia, transaminitis, right upper quadrant ultrasound demonstrated acalculus cholecystitis. Patient transferred from the ICU to the telemetry unit. Patient has been stable during the time of the telemetry unit with no significant events on the equipment monitor phototypesetting. Patients hemoglobin 6.8 today. 1 Unit PRBC given. Follow up CBC in the morning. Problem list: 1. Sepsis with lactic acidosis 2. Ethanol abuse and withdrawal 3. COPDstable 4. Acalculous cholecystitissigned off by surgery Plan: * Patient's hemoglobin today is 6.8 down from 7.6 yesterday. Transfuse 1 unit PRBC. Will follow up CBCs in the morning. -Patient states that his last colonoscopy was about 1.5 years ago. Patient states he had a polyps that were removed at that time. Patient does not remember which physician he was following. -Iron panel was ordered demonstrates iron 23, TIBC 208, ferritin 43.8 -Start p.o. iron 325 mg daily * Patient on day 3 out of 3 of Augmentin for suspected aspiration pneumonia; patient has been afebrile, no leukocytosis * No continue symptoms of withdrawal present; CIWA scores reported as 0 in the past 24 hours; stop oral Ativan today. * PT evaluation twice daily: Recommends patient is clear for home self care; * COPDstable not on home O2; patient educated again on quitting smoking * Patient came in with initial evaluation of hypomagnesemia. Magnesium at 1.3, giving 2 g IV magnesium sulfate today; continue on home p.o. magnesium; phosphorus at 3.2. Will discontinue Neutra-Phos supplement for now. Code Status: Full Code DVT PPx: Heparin SC + ALPS Diet: Regular Problem List: 1. Alcohol withdrawal 2. Hypomagnesemia 3. Aspiration pneumonia Pain Ratin Pain Location: Patient denies pain at this time. Pain Goal: Remain pain free Pain Plan: As per pain pathway. Tomorrow's Labs & Rationales: CBC, BEP Discharge Plan Discharge Disposition: home Kathy Gonsalez 12/16/17 1201: Attending MD Review Statement Attending Statement Attending MD Statement: examined this patient, discuss w/resident/PA/ANALYTICS SPECIALIST, agreed w/resident/PA/ANALYTICS SPECIALIST, reviewed EMR data (avail), discussed with nursing, discussed with case mgmt Attending Assessment/Plan: 57 yr male with pmh significant for heavy smoking ( 2 PPD) and alcohol use disorder (drinks beer), history of alcohol withdrawal seizure and has been in rehab previously, delirium tremens requiring ICU admission in 2013, and chronic back pain on disability was brought in for fevers, chills, diarrhea, and weakness. On admission, he had a lactate of 11, fever to 101, pancytopenia, transaminitis, hypocalcemia, hypomagnesemia, hypokalemia, and a right upper quadrant ultrasound showed acalculous cholecystitis. Sepsis with lactic acidosis-resolved. initially got vancomycin and ceftriaxone and flagyl. Later on pt had an aspiration event and was switched to unasyn and had got 4 days of unasyn . currently on po augmentin. WIll finish his augmentin today. ? Acalculous choleycystitis- seen by surgery and signed off. LFTs normalized. Etoh abuse and withdrawls- pt not withdrawing actively anymore. will get SW consult to discuss with rehab options. Pt most likely will go for AA meetings. Stop ativan today. COPD- stable. cousnelled pt to quit smoking. Acute Anemia requiring blood transfusion- pt nuha he had colonoscopy 1.5yrs ago which was normal but there were few polyps removed which were benign. Will transfuse 1 U PRBC and will recheck in am. Serum iron low. will start him on po iron 325mg daily. Hypomagnesemia persistent- will give 2 gm iv mag sulphate today and will cont him on po magnesium. PT says pt was able to do stairs and possible dc to home with home PT tomorrow. d/w pt the care plan.
[2017-12-16 07:55] LABS: ABSOLUTE BASOPHIL COUNT 0 /CUMM (0.0-0.2); ABSOLUTE EOSINOPHIL COUNT 0 /CUMM (0.0-0.7); ABSOLUTE GRANULOCYTE CT 4.7 /CUMM (1.4-6.5); ABSOLUTE LYMPH COUNT 2.3 /CUMM (1.2-3.4); ABSOLUTE MONOCYTE COUNT 0.5 /CUMM (0.10-0.60); BASOPHIL % 0.5 % (0.0-2.0); EOSINOPHIL % 0.4 % (0-5); GRANULOCYTE % 62.3 % (42.2-75.2); HEMATOCRIT 20.2 % (42-52); MEAN CORPUSCULAR HGB 34.4 PG (27.0-31.0); MEAN CORPUSCULAR HGB CONC 33.6 G/DL (33.0-37.0); MEAN CORPUSCULAR VOLUME 102.3 FL (80.0-94.0); MEAN PLATELET VOLUME 9.3 FL (7.4-10.4); PLATELET COUNT 264 /CUMM (130-400); RBC DISTRIBUTION WIDTH 14.6 % (11.5-14.5); RED BLOOD CELL CT 1.98 /CUMM (4.70-6.10); WHITE BLOOD CELL COUNT 7.5 /CUMM (4.8-10.8)
--- NOTE | 2017-12-16 11:01 | PN- Student ---
Subjective Subjective: Pt reports feeling well this morning and wants to go home. He reports ambulating to the toilet with assistance of a walker. He is tolerating a regular diet. ROS: Gen: denies fevers, chills CV: denies chest pain Pulm: denies SOB Abd: denies abd pain, denies indigestion Ext: denies leg pain Back: + back pain Objective Objective: Vitals: 99F, 109bpm, RR 18, BP 130/62, 94%RA Tele: 109bpm, NSR w/ question of PVC or SVT at 4am which resolved Gen: NAD Psych: good affect, positive outlook CV: RRR, No MRG Pulm: Crackles BL but good air entry Abd: soft, NTND, +BS Ext: warm and well perfused, 2+ DP/PT pulses BL Results Results: Laboratory Tests CIWA score: 0 Iron 23 TIBC 208 12/16/17 0642: Anion Gap 8, Estimated GFR > 60, BUN/Creatinine Ratio 4.0 L, Phosphorus 3.2, Magnesium 1.3 L, Iron 23 L, TIBC 208 L, Ferritin 43.8, CBC w Diff NO MAN DIFF REQ, RBC 1.98 L, MCV 102.3 H, MCH 34.4 H, MCHC 33.6, RDW 14.6 H, MPV 9.3, Gran % 62.3, Lymphocytes % 30.0, Monocytes % 6.8, Eosinophils % 0.4, Basophils % 0.5, Absolute Granulocytes 4.7, Absolute Lymphocytes 2.3, Absolute Monocytes 0.5 , Absolute Eosinophils 0, Absolute Basophils 0 12/15/17 0645: Anion Gap 9, Estimated GFR > 60, BUN/Creatinine Ratio 3.3 L, CBC w Diff NO MAN DIFF REQ, RBC 2.21 L, MCV 103.1 H, MCH 34.2 H, MCHC 33.2, RDW 14.8 H, MPV 9.7, Gran % 66.7, Lymphocytes % 23.8, Monocytes % 8.8, Eosinophils % 0.3, Basophils % 0.4, Absolute Granulocytes 6.2, Absolute Lymphocytes 2.2, Absolute Monocytes 0.8 H, Absolute Eosinophils 0, Absolute Basophils 0 12/14/17 0605: Anion Gap 8, Estimated GFR > 60, Glucose 64 L, Calcium 7.0 L, Phosphorus 2.4 L, Magnesium 1.3 L, Total Bilirubin 1.0, AST 37, ALT 28, Albumin 1.9 L Microbiology 12/13 1700 STOOL: Clostridium difficile Toxin A & B - COMP Assessment/Plan Assessment: [id number] with hx of 2ppd smoking and COPD, EtOH use disorder (6 beers/day) and ICU admission for DTs in 2013, chronic back pain presented to the ED 9 days ago with fever, diarrhea and weakness. On admission, pt had lactate of 11, fever of 101F, and pancytopenia, transaminitis, hypocalcemia, hypomagnesemia, hypokalemia, and RUQ US showing acalculous cholecystitis. Pt admitted to the ICU for DT. Transferred to telemetry 2 days ago. Pt is on day 3/3 PO augmentin today. Incontinence as per nursing resolved today. PT eval indicates pt can be discharged [facility]. No EtOH withdrawal sx present. Problem List: 1. Sepsis w/ lactic acidosis: Lactate and leukocytosis have resolved. Pt can finish PO augmentin today. Continue AM CBC and BMP. * Pt's labs today indicate Hb/Hct of 6.8/20.2 which is down from yesterday's measurement of 7.6/22.8. Due to low H/H, low iron, and low TIBC, we will transfuse the patient with one unit of packed RBCs. Follow up H/H in AM. Recommend PO Fe. If pt responds well and remains stable, we will discharge home with self care. 2. ETOH abuse and withdrawals: Pt received 0.5mg ativan BD yesterday. Today we can d/c ativan as patient's CIWA score has been 0 since he came to the floor. Pt has been counselled regarding EtOH use disorder and recovery. 3. COPD: Stable. Pt does not use home oxygen and is satting in the mid 90%s on room air. While pt's CXR on 12/10/17 indicated a LLL opacity which Pt has been counselled regarding smoking cessation. 4. Acalculous cholecystitis: Stable and with no abdominal complaints. Surgery has cleared the patient.
[2017-12-16 14:37] VITALS: BP 122/70
[2017-12-16 23:03] VITALS: BP 120/76
[2017-12-17 06:52] VITALS: BP 130/72
--- NOTE | 2017-12-17 06:58 | PN- Housestaff ---
Faviola Henry 12/17/17 0657: Subjective Follow-up For: Sepsis with lactic acidosisresolved Microcytic anemiastatus post 1 unit PRBC; resolved Alcohol use disorder COPDstable Acalculous cholecystitis Tele-Events Since Last Visit: Sinus tachycardia, 99-110 Subjective: Patient seen and examined at bedside this morning. Denies any new complaints and eager to go home. Tolerating regular diet and able to ambulate with walker. Has significant improvement with physical therapy. Denies any chest pain, palpitation, shortness of breath, abdominal pain, tremors. Review of Systems Constitutional: Denies: see HPI. Objective Last 24 Hrs of Vital Signs/I&O Vital Signs Date Time Temp Pulse Resp B/P B/P Pulse O2 O2 Flow FiO2 Mean Ox Delivery Rate 12/17 0652 98.4 100 18 130/72 96 Room Air 12/16 2303 98.4 102 18 120/76 95 Room Air 12/16 1437 101.2 115 18 122/70 95 Intake & Output 12/17 1600 12/17 0800 12/17 0000 Intake Total Output Total 1200 550 Balance -1200 -550 Number 2 Bowel Movements Output, Urine 1200 550 Patient 175 lb Weight Weight Bed scale Measurement Method Physical Exam General Appearance: Alert, Oriented X3, Cooperative, No Acute Distress HEENT: Atraumatic, PERRLA, EOMI, Mucous Membr. moist/pink Neck: Supple, No JVD Cardiovascular: Regular Rate, Normal S1, Normal S2 Lungs: Clear to Auscultation, Normal Air Movement Abdomen: Normal Bowel Sounds, Soft, No Tenderness Neurological: Normal Speech, Strength at 5/5 X4 Ext, Normal Tone, Sensation Intact, Cranial Nerves 3-12 NL Extremities: No Clubbing, No Cyanosis, No Edema Vascular: Normal Pulses, Pulses Symmetrical Current Medications: Current Medications Sig/Christal Start time Last Medication Dose Route Stop Time Status Admin Amoxicillin/ 875 MG Q12 12/14 2100 DC 12/17 Clavulanate Potassium PO 12/17 1100 0747 Calcium Carbonate 1,250 MG BID 12/09 09 AC 12/17 PO 0747 Ferrous Sulfate 325 MG DAILY 12/16 1318 AC 12/17 PO 0949 Folic Acid 1 MG DAILY 12/08 0900 AC 12/17 PO 0746 Heparin Sodium 5,000 UNIT Q8 12/08 1400 AC 12/17 (Porcine) SC 0536 Lorazepam 2 MG .STK-MED ONE 12/16 1405 DC IM 12/16 1406 Lorazepam 0 Q4 PRN 12/13 1824 AC IV Magnesium Oxide 400 MG BID 12/12 2100 AC 12/17 PO 0746 Magnesium Sulfate 1 GM Q2H 12/16 1215 DC 12/16 Dextrose/Water 100 ML IV 12/16 1614 1654 Multivitamins 1 TAB DAILY 12/08 09 AC 12/17 PO 0746 Nicotine 14 MG DAILY 12/08 09 AC 12/17 TOP 0751 Nystatin 1 MOY TID 12/11 2349 AC 12/17 TOP 0750 Omeprazole 40 MG DAILY AC 12/09 0700 AC 12/17 PO 0536 Phosphate 250 MG PC AND AT BEDTIME 12/13 1300 DC 12/16 PO 0854 Thiamine HCl 100 MG DAILY 12/08 899 12/17 PO 0746 Last 24 Hrs of Lab/Marek Results Last 24 Hrs of Labs/Mics: Laboratory Tests 12/17/17 0640: Anion Gap 6, Estimated GFR > 60, BUN/Creatinine Ratio 4.0 L, CBC w Diff NO MAN DIFF REQ, RBC 2.48 L, MCV 98.6 H, MCH 32.4 H, MCHC 32.9 L, RDW 18.6 H, MPV 9.2, Gran % 64.5, Lymphocytes % 28.9, Monocytes % 5.1, Eosinophils % 0.9, Basophils % 0.6, Absolute Granulocytes 4.6, Absolute Lymphocytes 2.1, Absolute Monocytes 0.4, Absolute Eosinophils 0.1, Absolute Basophils 0 Assessment/Plan Assessment: Patient is a 57-year-old male with history of COPD smoking 2 packs a day, alcohol abuse disorder drinking 6 beers a day, delirium tremens see admission in 2013, who presented to the emergency department 10 days ago with fevers, chills and diarrhea. Patient was admitted to the ICU with lactic acid 11, pancytopenia , hypomagnesemia, hypophosphatemia, hypokalemia, transaminitis for alcohol withdrawal. Patient transferred to the telemetry unit. Patient has been stable in the telemetry unit. Tapered off Ativan. CIWA scores in the 0s. Yesterday patient was found to have hemoglobin of 6.8 and low ferritin and transfuse 1 unit PRBCs. Patient was also given p.o. iron. Hemoglobin is now back to level at 8. Patient feels well and vital signs are stable this time is patient's baseline tachycardia. Problem list: 1. Sepsis with lactic acidosisresolved 2. Microcytic anemia 3. Alcohol abuse disorder 4. COPDstable 5. Acalculous cholecystitis Plan: * She has completed day 3 out of 3 p.o. Augmentin yesterday. Patient has been afebrile with no significant white count. Patient sepsis with lactic acidosis on admission to ICU has resolved. * Patient was found to have a hemoglobin and hematocrit of 6.8/20.2 and an iron of 23 with TIBC of 208 on 12/16/2017. 1 unit PRBCs was given. Patient to be discharged on p.o. iron. * Ativan discontinued yesterday. CIWA scores of 0. No tremors, night sweats, nausea, vomiting noted. Patient has been educated on alcohol abuse and options for recovery and support. Patient does not have proper insurance for a rehab facility. However he agrees to go to . * Patient has been counseled extensively on smoking cessation. CODE STATUS: Full code DVT prophylaxis: Heparin SC plus Alps Diet: Regular Problem List: 1. Alcohol withdrawal Pain Ratin Pain Location: No pain today Pain Goal: Remain pain free Pain Plan: As per pain pathway Tomorrow's Labs & Rationales: Not applicable DVT/Prophylaxis: mechanical, pharmacological Discharge Plan Discharge Disposition: home Kathy Gonsalez 12/17/17 1420: Attending MD Review Statement Attending Statement Attending MD Statement: examined this patient, discuss w/resident/PA/SILK SCREEN PAINTER, agreed w/resident/PA/SILK SCREEN PAINTER, reviewed EMR data (avail), discussed with nursing, discussed with case mgmt Attending Assessment/Plan: 57 yr male with pmh significant for heavy smoking ( 2 PPD) and alcohol use disorder (drinks beer), history of alcohol withdrawal seizure and has been in rehab previously, delirium tremens requiring ICU admission in 2013, and chronic back pain on disability was brought in for fevers, chills, diarrhea, and weakness. On admission, he had a lactate of 11, fever to 101, pancytopenia, transaminitis, hypocalcemia, hypomagnesemia, hypokalemia, and a right upper quadrant ultrasound showed acalculous cholecystitis. Sepsis with lactic acidosis-resolved. initially got vancomycin and ceftriaxone and flagyl. Later on pt had an aspiration event and was switched to unasyn and had got 4 days of unasyn . currently on po augmentin. Finished his abx course. ? Acalculous choleycystitis- seen by surgery and signed off. LFTs normalized. Etoh abuse and withdrawls- pt not withdrawing actively anymore. will get SW consult to discuss with rehab options. Pt most likely will go for AA meetings. off ativan now. COPD- stable. cousnelled pt to quit smoking. Acute Anemia requiring blood transfusion- pt syas he had colonoscopy 1.5yrs ago which was normal but there were few polyps removed which were benign. Transfused 1 U PRBC on 12/16 and repeat hb was 8. Cont on iron supplementation. Hypomagnesemia persistent- will recheck mag level today.
--- NOTE | 2017-12-17 07:41 | PN- Student ---
Subjective Subjective: Pt was seen and examined this morning. He has no complaints and is feeling the same as yesterday. He is tolerating a regular diet, ambulating with a walker. The patient denies headache, chest pain, SOB, abdominal pain, tremors, and leg pain. He does have his usual back ache but it is mild. Objective Objective: Vital Signs Date Time Temp Pulse Resp B/P B/P Pulse O2 O2 Flow FiO2 Mean Ox Delivery Rate 12/17 1444 98.2 107 17 124/64 95 Room Air 12/17 0652 98.4 100 18 130/72 96 Room Air 12/16 2303 98.4 102 18 120/76 95 Room Air Tele: NSR and ST 99-110bpm PE: Gen: NAD, AOx3 Psych: anixous to go home CV: Tachy, S1 and S2, No MRG Pulm: Crackles BL, good air entry, normal work of breathing Abd: soft, NTND, +BS Ext: warm and well perfused, no edema, 2+ DP/PT pulses BL Results Results: Laboratory Tests Laboratory Tests 12/17 0640 Chemistry Sodium (137 - 145 mmol/L) 130 L Potassium (3.5 - 5.1 mmol/L) 3.7 Chloride (98 - 107 mmol/L) 99 Carbon Dioxide (22 - 30 mmol/L) 25 Anion Gap (5 - 16) 6 BUN (9 - 20 mg/dL) 2 L Creatinine (0.7 - 1.2 mg/dL) 0.5 L Estimated GFR (>60 ml/min) > 60 BUN/Creatinine Ratio (7 - 25 %) 4.0 L Magnesium (1.6 - 2.3 mg/dL) 1.5 L Hematology CBC w Diff NO MAN DIFF REQ WBC (4.8 - 10.8 /CUMM) 7.2 RBC (4.70 - 6.10 /CUMM) 2.48 L Hgb (14.0 - 18.0 G/DL) 8.0 L Hct (42 - 52 %) 24.5 L MCV (80.0 - 94.0 FL) 98.6 H MCH (27.0 - 31.0 PG) 32.4 H MCHC (33.0 - 37.0 G/DL) 32.9 L RDW (11.5 - 14.5 %) 18.6 H Plt Count (130 - 400 /CUMM) 304 MPV (7.4 - 10.4 FL) 9.2 Gran % (42.2 - 75.2 %) 64.5 Lymphocytes % (20.5 - 51.1 %) 28.9 Monocytes % (1.7 - 9.3 %) 5.1 Eosinophils % (0 - 5 %) 0.9 Basophils % (0.0 - 2.0 %) 0.6 Absolute Granulocytes (1.4 - 6.5 /CUMM) 4.6 Absolute Lymphocytes (1.2 - 3.4 /CUMM) 2.1 Absolute Monocytes (0.10 - 0.60 /CUMM) 0.4 Absolute Eosinophils (0.0 - 0.7 /CUMM) 0.1 Absolute Basophils (0.0 - 0.2 /CUMM) 0 Assessment/Plan Assessment: 57YOM with hx of COPD (2ppd smoker), EtOH abuse disorder (6beers per day), DT requiring ICU admission in 2013, and chronic back pain (on disability) who presented to the ED 10 days ago with fever, chills, and diarrhea. He was admitted to the ICU with a lactic acid of 11, pancytopenia, hypomagnesemia, hypophosphatemia, hypokalemia, and transaminitis for EtOH withdrawal and was then transferred to [facility] 4 days ago. Yesterday, pt was found to have Hb 6.8 and low ferritin and was transfused with 1 unit packed RBCs and given PO Fe. Today his H/H has improved to 8.0/24.5. 1. Sepsis with lactic acidosis * Resolved. Completed 3/3 PO augmentin yesterday. 2. Microcytic anemia * Pt was found to have H/H of 6.8/20.2 and an iron of 23 with TIBC of 208. * 1 unit packed RBCs given. PO Fe was given. * Today, his H/H has improved to 8.0/24.5. * Pt should continue PO Fe on discharge and f/u H&H with [facility] outpatient clinic. 3. EtOH Use Disorder * Pt remains stable and ativan was d/c yesterday after several days of CIWA score of 0. He denies tremors and irritability. * Pt has been counseled extensively on EtOH abuse and options for recovery support. He has spoken with Social Work about AA as his primary treatment option d/t lack of health insurance. 4. COPD * Stable. Pt is not on home O2. Pt has been counseled extensively on smoking cessation. 5. Acalculous cholecystitis * Pt was found to have acalculous cholecystitis on admission CT but has been cleared by surgery. He has no abdominal complaints. Pt is ready for discharge home with self care. His family will support. Diet: regular DVT proph: ALPS Code: full
[2017-12-17 08:34] LABS: ABSOLUTE BASOPHIL COUNT 0 /CUMM (0.0-0.2); ABSOLUTE EOSINOPHIL COUNT 0.1 /CUMM (0.0-0.7); ABSOLUTE GRANULOCYTE CT 4.6 /CUMM (1.4-6.5); ABSOLUTE LYMPH COUNT 2.1 /CUMM (1.2-3.4); ABSOLUTE MONOCYTE COUNT 0.4 /CUMM (0.10-0.60); BASOPHIL % 0.6 % (0.0-2.0); EOSINOPHIL % 0.9 % (0-5); GRANULOCYTE % 64.5 % (42.2-75.2); HEMATOCRIT 24.5 % (42-52); MEAN CORPUSCULAR HGB 32.4 PG (27.0-31.0); MEAN CORPUSCULAR HGB CONC 32.9 G/DL (33.0-37.0); MEAN CORPUSCULAR VOLUME 98.6 FL (80.0-94.0); MEAN PLATELET VOLUME 9.2 FL (7.4-10.4); PLATELET COUNT 304 /CUMM (130-400); RBC DISTRIBUTION WIDTH 18.6 % (11.5-14.5); WHITE BLOOD CELL COUNT 7.2 /CUMM (4.8-10.8)
[2017-12-17 08:55] LABS: RED BLOOD CELL CT 2.48 /CUMM (4.70-6.10)
[2017-12-17] MEDS ORDERED: FERROUS SULFAT325 M3 PO ×2 (09:06→10:08)
[2017-12-17] MEDS ORDERED: VITAMIN B-1100 MG PO (10:08)
[2017-12-17] MEDS ORDERED: NICOTINE PATCH1 EAC3 TOP (10:08)
[2017-12-17] MEDS ORDERED: FOLIC ACID1 M1 PO (10:08)
[2017-12-17] MEDS ORDERED: OMEPRAZOLE20 M2 PO (10:08)
[2017-12-17 14:44] VITALS: BP 124/64
[2017-12-17] MEDS ORDERED: MAGNESIUM OXID400 M1 PO (14:57)
== END 2017-12-17 15:00 | DRG 871 ==
LOC: ERH 17:37 → CRI 19:54 → ERHI 19:54 → 1NO 19:54 → ENRESERV 21:45 → ENTRNSPT 22:43 → EDTRNSPTSTS 22:45 → CRI 23:01 → CMPTRNSPT 23:01 → CRI 12-08 13:29 → ENTRNSPT 12-13 20:35 → EDTRNSPTSTS 12-13 20:54 → 1NO 12-13 21:20 → CMPTRNSPT 12-13 21:32 → 1NO 12-14 07:42 → ENPENDDIS 12-17 10:20 → ENTRNSPT 12-17 14:20 → EDTRNSPTSTS 12-17 14:55 → 1NO 12-17 15:00 → CMPTRNSPT 12-17 15:12
PROVIDERS: Internal Medicine; Physical Medicine & Rehabilitation Pain Medicine; Physician Assistant Medical; Preventive Medicine Public Health & General Preventive Medicine
PROC: 30233N1 Transfusion of Nonautologous Red Blood Cells into Peripheral Vein, Percutaneous Approach (ICD-10-PCS; principal; 2017-12-16)
DX: A41.9 Sepsis, unspecified organism (principal); G92 Toxic encephalopathy; J69.0 Pneumonitis due to inhalation of food and vomit; N39.0 Urinary tract infection, site not specified; E87.2 Acidosis; F10.239 Alcohol dependence with withdrawal, unspecified; E46 Unspecified protein-calorie malnutrition; I82.621 Acute embolism and thrombosis of deep veins of right upper extremity; E86.0 Dehydration; Y90.5 Blood alcohol level of 100-119 mg/100 ml; K70.10 Alcoholic hepatitis without ascites; D69.6 Thrombocytopenia, unspecified; E87.6 Hypokalemia; Z68.20 Body mass index [BMI] 20.0-20.9, adult; F17.200 Nicotine dependence, unspecified, uncomplicated; R74.0 Nonspecific elevation of levels of transaminase and lactic acid dehydrogenase [LDH]; E83.42 Hypomagnesemia; E83.51 Hypocalcemia; F17.210 Nicotine dependence, cigarettes, uncomplicated; D53.9 Nutritional anemia, unspecified; A41.1 Sepsis due to other specified staphylococcus; R65.20 Severe sepsis without septic shock; K81.1 Chronic cholecystitis
CPT/HCPCS: 1NSP; CCU; 36415; 36592; 71045; 74176; 78226; 80307; 81001; 82436; 84600; 86920; 87015; 87040; 87045; 87070; 87086; 87147; 87328; 87329; 87449; 87450; 87899; 87899-59; 93005; 93010; 93306; 93970; 96360; 96361; 96365; 96375; 97110-GO; 97116-GO; 97162-GP; 97165-GO; 97530-GO; 97535-GO; 99291; A9537; G0480; J0131; J0610; J0696; J1644; J3370; J3490; J7040; J7042; P9016; P9047